=== PATIENT | male | born 1985 | race Caucasian/White ===

== ENCOUNTER 2017-09-17 13:09 | Inpatient (IN) ==
[2017-09-17 13:45] LABS: Basophils # 0.1 K/mcL (0.0-0.2); Basophils % 0.7 %; Eosinophils # 0.1 K/mcL (0.0-0.6); Eosinophils % 1.2 %; Hematocrit 41.5 % (37.5-50.1); Hemoglobin 14.1 g/dL (12.9-16.9); Immature Granulocytes % 0.4 % (0-4); Lymphocytes # 2.6 K/mcL (0.6-4.6); Lymphocytes % 26.3 %; Mean Corpuscular Hemoglobin 31.2 pg (28.0-33.3); Mean Corpuscular Volume 91.8 fL (83.0-100.0); Mean Platelet Volume 10.8 fL (9.4-12.4); Monocytes # 0.7 K/mcL (0.0-1.3); Monocytes % 7.3 %; Neutrophils # 6.4 K/mcL (1.6-8.9); Platelet Count 252 K/mcL (140-400); Red Blood Count 4.52 M/mcL (4.19-5.50); Red Cell Distribution Width 14.4 % (11.5-14.5); Segmented Neutrophils % 64.1 %
[2017-09-17 13:54] LABS: INR 1.3; Prothrombin Time 13.7 Seconds (9.4-12.1)
--- NOTE | 2017-09-17 13:56 | Emergency Department Note ---
Disposition Clinical Impression: Pleural effusion, Non-STEMI (non-ST elevated myocardial infarction) Dyspnea Qualifiers: Dyspnea type: unspecified Qualified Code(s): R06.00 - Dyspnea, unspecified CHF (congestive heart failure) Qualifiers: Heart failure type: unspecified Heart failure chronicity: acute Qualified Code( s): I50.9 - Heart failure, unspecified Pneumonia Qualifiers: Pneumonia type: due to unspecified organism Laterality: bilateral Lung location : lower lobe of lung Qualified Code(s): J18.1 - Lobar pneumonia, unspecified organism Disposition: Admitted As Inpatient Condition: Fair Referrals: NONE,PCP [Primary Care Provider] - Forms: ED Satisfaction Letter Time of Disposition: 14:23 SOB HPI - General Chief Complaint: ED Shortness of Breath/Dyspnea Stated Complaint: "collapsed lung?" Time Seen by Provider: 09/17/17 13:32 Source: patient Limitations: no limitations Nursing Notes Reviewed: Yes Vital Signs Reviewed: Yes - History of Present Illness 32-year-old male who comes in complaining of increasing shortness of breath he had some abdominal distention and he stated. Patient states he has no history of this he states he did have a pneumothorax in the past when he fell. He had a history of heavy drinking in the past. Pt Subjective Complaint: shortness of breath Onset (ago): day(s) (5) Improves with: nothing Worsens with: exertion Associated symptoms: Reports: abdominal pain Treatment prior to arrival: none Cough Description: Involuntary Cough Frequency: Intermittent - Related Data Home Medications Medication Instructions Recorded Confirmed No Known Home Drugs 09/17/17 09/17/17 Allergies Allergy/AdvReac Type Severity Reaction Status Date / Time No Known Allergies Allergy Verified 09/17/17 16:08 All systems ED: reviewed and negative except as stated. Constitutional: Denies: fever, chills, weakness, weight change Eyes: Denies: eye pain, eye discharge, vision change ENT ED: Denies: ear pain, throat pain, dental pain, hearing loss, epistaxis, congestion, dysphagia Cardiovascular: Denies: chest pain, palpitations, dyspnea on exertion, edema, syncope Respiratory: Reports: cough, dyspnea. Denies: wheezes, hemoptysis, stridor Gastrointestinal: Denies: abdominal pain, nausea, vomiting, diarrhea, constipation, hematemesis, melena, hematochezia Genitourinary: Denies: urgency, dysuria, frequency, hematuria Musculoskeletal: Denies: back pain, neck pain, arthralgia, myalgia Integumentary: Denies: rash, abrasion, lesions Neurological: Denies: headache, weakness, numbness, paresthesias, confusion, abnormal gait, vertigo Psychiatric: Denies: anxiety, depression, suicidal thoughts, homicidal thoughts , auditory hallucinations, visual hallucinations Endocrine: Denies: fatigue Hematological/Lymphatic: Denies: easy bleeding, easy bruising Allergic/Immunologic: Denies: facial swelling, urticaria Past Medical History - Past Medical History Medical history: Reports: other Psychiatric history: Reports: no psych history - Social History Smoking Status: Current every day smoker Smokeless Tobacco Status: No Alcohol use: Reports: none Drug use: Reports: marijuana Physical Exam - General Limitations: no limitations General appearance: alert - Head Head exam: atraumatic, normocephalic, normal inspection - Eye Eye exam: Present: normal appearance, PERRL, EOMI - ENT ENT exam: normal exam, normal oropharynx, mucous membranes moist - Neck Neck exam: Present: normal inspection, full ROM, trachea midline - Chest Chest inspection: Present: normal inspection, symmetric chest wall rise - Respiratory Respiratory exam: Present: accessory muscle use, prolonged expiratory phase, other (Rales) - Cardiovascular Cardiovascular exam: Present: regular rate, normal rhythm, normal heart sounds - Abdominal Exam Abdominal exam: Present: tenderness (Epigastrium) - Extremities Exam Extremities exam: Present: normal inspection, full ROM. Absent: tenderness, pedal edema - Expanded Lower Extremity Exam Neurovascular/Tendon exam: Absent: motor deficit, sensory deficit, tendon deficit Gait: observed and normal - Back Exam Back exam: Present: normal inspection, full ROM. Absent: tenderness - Neurological Exam Neurological exam: Present: alert, oriented X3 - Psychiatric Psychiatric exam: Present: normal affect, normal mood - Skin Skin exam: Present: warm, dry, intact, normal color Course - Reevaluation(s) Reevaluation #1: 32-year-old who comes in with exertional dyspnea and cough. He thought he may have another pneumothorax which she has had the past. A chest x-ray shows questionable bilateral pneumonia although when I review the x-ray it looks like he has some failure also. His BNP is elevated at almost 2000. Initial troponin was 0.33, repeat troponin was 0.39. This was discussed with cardiology interventionalists who recommended Lasix and admission and he will see the patient. The EKG was shown to the interventionalists who felt it was left ventricular hypertrophy strain pattern. Time: 15:57 - Consultations Consultation #1: Discussed with , who reviewed the EKG and reviewed the initial troponin 0.33. He requests we repeat his troponin at 1 hour. Time: 14:21 Consultation #2: Discussed with , troponin is 0.39 up from 0.33. Time: 15:20 Consultation #3: Discussed with , recommends Lasix and he will see the patient. Time: 15:56 Additional Consultation(s): Discussed with , admit. Vital Signs Temperature 97.4 F L 09/17/17 13:17 Pulse Rate 108 09/17/17 13:17 Respiratory Rate 24 09/17/17 13:17 Blood Pressure 127/77 09/17/17 13:17 O2 Sat by Pulse Oximetry 97 09/17/17 13:17 Temperature 97.4 F L 09/17/17 13:17 Pulse Rate 127 09/17/17 16:47 Respiratory Rate 18 09/17/17 16:47 Blood Pressure 107/71 09/17/17 16:47 O2 Sat by Pulse Oximetry 98 09/17/17 16:47 Oxygen Delivery Oxygen Delivery Room Air Shortness of Breath/Dyspnea - Lab Data Result diagrams: 09/17/17 13:28 09/17/17 13:28 Lab Results 09/17/17 09/17/17 09/17/17 Range/Units 13:28 13:28 13:28 WBC 10.0 (4.3-11.1) K/mcL RBC 4.52 (4.19-5.50) M/mcL Hgb 14.1 (12.9-16.9) g/dL Hct 41.5 (37.5-50.1) % MCV 91.8 (83.0-100.0) fL MCH 31.2 (28.0-33.3) pg MCHC 34.0 (31.6-35.5) g/dL RDW 14.4 (11.5-14.5) % Plt Count 252 (140-400) K/mcL MPV 10.8 (9.4-12.4) fL Immature Gran % 0.4 (0-4) % Seg Neutrophils % 64.1 % Lymphocytes % 26.3 % Monocytes % 7.3 % Eosinophils % 1.2 % Basophils % 0.7 % Neutrophils # 6.4 (1.6-8.9) K/mcL Lymphocytes # 2.6 (0.6-4.6) K/mcL Monocytes # 0.7 (0.0-1.3) K/mcL Eosinophils # 0.1 (0.0-0.6) K/mcL Basophils # 0.1 (0.0-0.2) K/mcL PT 13.7 H (9.4-12.1) Seconds INR 1.3 APTT 28.2 (26.0-36.0) Seconds Sodium 137 (136-145) mEq/L Potassium 4.2 (3.5-5.1) mEq/L Chloride 107 (98-107) mEq/L Carbon Dioxide 22 L (23-29) mEq/L BUN 23 H (6-20) mg/dL Creatinine 1.28 (0.70-1.30) mg/dL Est GFR ( Amer) > 60 (> 60) Est GFR (Non-Af Amer) > 60 (> 60) BUN/Creatinine Ratio 18 (6-26) Glucose 172 H (70-105) mg/dL Calculated Osmolality 292 (280-300) Lactic Acid (0.5-2.2) mmol/L Calcium 8.8 (8.6-10.3) mg/dL Total Bilirubin 0.7 (0.3-1.0) mg/dL Direct Bilirubin 0.2 (0.0-0.2) mg/dL Indirect Bilirubin 0.5 (0.0-1.2) mg/dL AST 30 (13-39) Units/L ALT 46 (7-52) Units/L Alkaline Phosphatase 38 (34-104) Units/L Troponin I 0.33 H* (< 0.04) ng/mL B-Natriuretic Peptide (Less than 100) pg/mL Serum Total Protein 5.7 L (6.4-8.9) g/dL Albumin 3.5 (3.5-5.7) g/dL Globulin 2.2 L (2.4-3.5) g/dL Albumin/Globulin Ratio 1.6 (1.1-2.2) Amylase 33 (29-103) Units/L Lipase 6 L (11-82) Units/L 09/17/17 09/17/17 09/17/17 Range/Units 13:53 13:53 14:47 WBC (4.3-11.1) K/mcL RBC (4.19-5.50) M/mcL Hgb (12.9-16.9) g/dL Hct (37.5-50.1) % MCV (83.0-100.0) fL MCH (28.0-33.3) pg MCHC (31.6-35.5) g/dL RDW (11.5-14.5) % Plt Count (140-400) K/mcL MPV (9.4-12.4) fL Immature Gran % (0-4) % Seg Neutrophils % % Lymphocytes % % Monocytes % % Eosinophils % % Basophils % % Neutrophils # (1.6-8.9) K/mcL Lymphocytes # (0.6-4.6) K/mcL Monocytes # (0.0-1.3) K/mcL Eosinophils # (0.0-0.6) K/mcL Basophils # (0.0-0.2) K/mcL PT (9.4-12.1) Seconds INR APTT (26.0-36.0) Seconds Sodium (136-145) mEq/L Potassium (3.5-5.1) mEq/L Chloride (98-107) mEq/L Carbon Dioxide (23-29) mEq/L BUN (6-20) mg/dL Creatinine (0.70-1.30) mg/dL Est GFR ( Amer) (> 60) Est GFR (Non-Af Amer) (> 60) BUN/Creatinine Ratio (6-26) Glucose (70-105) mg/dL Calculated Osmolality (280-300) Lactic Acid 2.6 H (0.5-2.2) mmol/L Calcium (8.6-10.3) mg/dL Total Bilirubin (0.3-1.0) mg/dL Direct Bilirubin (0.0-0.2) mg/dL Indirect Bilirubin (0.0-1.2) mg/dL AST (13-39) Units/L ALT (7-52) Units/L Alkaline Phosphatase (34-104) Units/L Troponin I 0.39 H* (< 0.04) ng/mL B-Natriuretic Peptide 1804 H (Less than 100) pg/mL Serum Total Protein (6.4-8.9) g/dL Albumin (3.5-5.7) g/dL Globulin (2.4-3.5) g/dL Albumin/Globulin Ratio (1.1-2.2) Amylase (29-103) Units/L Lipase (11-82) Units/L Critical Care Time Critical Care Time: Yes Total Critical Care Time: 30 Attestation: The high probability of a clinically significant, sudden or life threatening deterioration of the [cardiovascular] system(s) required my full and direct attention, intervention and personal management. The aggregate critical care time was [30] minutes. This time is in addition to time spent performing reported procedures but includes the following: [x] Data Review and interpretation [x] Patient assessment and monitoring of vital signs [x] Documentation [x] Medication orders and management
[2017-09-17 13:57] LABS: Activated Partial Thrombo Time 28.2 Seconds (26.0-36.0)
[2017-09-17 14:16] LABS: Troponin I 0.33 ng/mL (< 0.04)
[2017-09-17 14:19] LABS: Alanine Aminotransferase 46 Units/L (7-52); Albumin 3.5 g/dL (3.5-5.7); Albumin/Globulin Ratio 1.6 (1.1-2.2); Alkaline Phosphatase 38 Units/L (34-104); Amylase 33 Units/L (29-103); Aspartate Amino Transferase 30 Units/L (13-39); BUN/Creatinine Ratio 18 (6-26); Bilirubin,Direct 0.2 mg/dL (0.0-0.2); Bilirubin,Indirect 0.5 mg/dL (0.0-1.2); Bilirubin,Total 0.7 mg/dL (0.3-1.0); Blood Urea Nitrogen 23 mg/dL (6-20); Calcium 8.8 mg/dL (8.6-10.3); Carbon Dioxide 22 mEq/L (23-29); Chloride 107 mEq/L (98-107); Globulin 2.2 g/dL (2.4-3.5); Glucose 172 mg/dL (70-105); Lipase 6 Units/L (11-82); Osmolality,Calculated 292 (280-300); Potassium 4.2 mEq/L (3.5-5.1); Sodium 137 mEq/L (136-145); Total Protein 5.7 g/dL (6.4-8.9); eGFR For African Americans > 60 (> 60); eGFR For Non-African Americans > 60 (> 60)
[2017-09-17] MEDS ORDERED: Azithromycin 500 MG in D5% in Water 250 ML IVPB ONE (14:19)
[2017-09-17] MEDS ORDERED: cefTRIAXone 1,000 MG in Water for inj. (sterile) 20 ML 10 ML IVP ONE (14:19)
[2017-09-17] MEDS ORDERED: Furosemide 40 MG/4 ML VIAL IVP ONE (15:18)
[2017-09-17] MEDS ORDERED: *HR* Heparin 5,000 UNIT/ML VIAL IVP PRN ×2 (16:34)
[2017-09-17] MEDS ORDERED: *HR* Heparin 5,000 UNIT/ML VIAL IVP ONE (16:34)
[2017-09-17] MEDS ORDERED: Heparin 25,000 UNIT/500 ML D5W 25,000 UNIT/500 ML BAG IVC SCH (16:45)
[2017-09-17] MEDS ORDERED: *HR* FentaNYL (PF) 100 MCG/2 ML VIAL IVP ONE (16:48)
[2017-09-17] MEDS ORDERED: Ondansetron 4 MG/2 ML VIAL IVP ONE (16:48)
[2017-09-17] MEDS ORDERED: Naloxone 0.4 MG/ML INJ IVP PRN (18:00)
[2017-09-17] MEDS ORDERED: Ringers Solution, Lactated 1,000 ML IVC SCH (18:00)
--- NOTE | 2017-09-17 18:07 | Internal Med History&Physical ---
Date of Encounter: 09/17/17 Time of Encounter: 18:05 Internal Medicine - H&P: HPI Chief complaint: Left-sided chest pain History of present illness: Mr. Byrd is a 32 year old male who presents with left-sided chest pain found to have a significant troponemia-NSTEMI and clinical bilateral pneumonia He presents with 4-5 days history of left-sided chest pain, described as sharp, pleuritic, worse with movement. Associated with sweaty sensation and chills. Symptoms was significantly worse today with no improvement over the last few days leading to hospital admission. Of note he denies knowingly consuming any illicit drugs except for smoking marijuana. He had a republican last weekend and is unsure whether he was exposed to other drugs unintentionally. He is unsure whether his joints were laced with other drugs. He consumes alcohol at a frequency of twice a month and is not a daily drinker per his admission. He reports a history of traumatic pneumothorax from a fall many years ago. EKG personally reviewed with rate 120, LVH, T-wave inversion in anterior leads, isolated V3 ST elevation FINDINGS: Bilateral lower lobe airspace disease and bilateral pleural effusions are evident. Mild cardiomegaly. No pulmonary vascular congestion. XR/XR chest 1V portable IMPRESSION: Possible bilateral lower lobe pneumonia with parapneumonic bilateral pleural effusions Past Med Surg Social Fam HX - Past Medical History Medical history: other Additional medical history: allergies. collapsed lung Psychiatric history: no psych history - Past Surgical History Additional surgical history: collapsed lung/chest tube - Social History Smoking Status: Current every day smoker Smokeless Tobacco Status: No Alcohol use: none Drug use: marijuana Internal Medicine - H&P: Meds No Known Home Drugs 09/17/17 [History] 3 Allergy/AdvReac Type Severity Reaction Status Date / Time No Known Allergies Allergy Verified 09/17/17 16:08 All Systems PM: A 10-system review of systems was performed and is negative for pertinent findings except as documented above in the HPI. Review of systems: ROS 14 point review of systems reviewed as best as possible given presentation. Pertinent positive or negative as per HPI or otherwise reviewed as negative - Constitutional Vitals: Temp Pulse Resp BP Pulse Ox 97.4 F L 127 18 107/71 98 09/17/17 13:17 09/17/17 16:47 09/17/17 16:47 09/17/17 16:47 09/17/17 16:47 Exam: General - AAO x 3 Psych - Appropriate affect/speech. No agitation Eyes - CEE. Eye lids intact. No scleral icterus Neuro - No gross peripheral or central neuro deficits on inspection Heart - Sinus. RRR. S1 and S2 present. No added HS/murmurs appreciated. No elevated JVD appreciated. Lung - Adequate air entry b/l, bibasal crackles, no wheeze GI - Soft, non-tender. No hepatosplenomegaly/ascites. BS+ - No CVA/suprapubic tenderness or palpable bladder distension Skin - Intact. No rash/petechiae/ecchymosis. Warm extremities Internal Med - H&P Results - Labs CBC & Chem 7: 09/17/17 13:28 09/17/17 13:28 Labs: Short CBC 09/17/17 Range/Units 13:28 WBC 10.0 (4.3-11.1) K/mcL Hgb 14.1 (12.9-16.9) g/dL Hct 41.5 (37.5-50.1) % Plt Count 252 (140-400) K/mcL Neutrophils # 6.4 (1.6-8.9) K/mcL BMP 09/17/17 13:28 Sodium 137 Potassium 4.2 Chloride 107 Carbon Dioxide 22 L BUN 23 H Creatinine 1.28 Glucose 172 H Calcium 8.8 Cardiac Enzymes 09/17/17 09/17/17 Range/Units 13:28 14:47 Troponin I 0.33 H* 0.39 H* (< 0.04) ng/mL Liver Function 09/17/17 Range/Units 13:28 Total Bilirubin 0.7 (0.3-1.0) mg/dL Direct Bilirubin 0.2 (0.0-0.2) mg/dL AST 30 (13-39) Units/L ALT 46 (7-52) Units/L Alkaline Phosphatase 38 (34-104) Units/L Albumin 3.5 (3.5-5.7) g/dL - Impressions ITS Impressions Chest X-Ray 09/17/17 13:20 IMPRESSION: Possible bilateral lower lobe pneumonia with parapneumonic bilateral pleural effusions D/ / Buzz Licona MD / Buzz Licona MD Interpreting Provider: Buzz Licona MD - Assessment and plan (1) Non-STEMI (non-ST elevated myocardial infarction) Current Visit: Yes Status: Acute Assessment and plan: ED - Dr Jones d/w Dr Silva - rec heparin gtt - will continue overnight pending testing below EKG with LV strain read by Dr Silva. Recheck EKG in a.m Trend trop check urine tox for drugs check CTPE (2) Pneumonia Current Visit: Yes Status: Acute Assessment and plan: IV rocephin, azithro serologies pend blood cx pend Qualifiers: Pneumonia type: due to unspecified organism Laterality: bilateral Lung location: lower lobe of lung Qualified Code(s): J18.1 - Lobar pneumonia, unspecified organism (3) Pleural effusion Current Visit: Yes Status: Acute Assessment and plan: likely parapneumonic - Time Spent With Patient Total time spent is greater than 50% in coordination of care (as documented) at patient's floor/unit and/or counseling patient:
[2017-09-17] MEDS ORDERED: Isovue-370 500 ML INFUS..BTL IV ONE (18:08)
[2017-09-17] MEDS ORDERED: Aspirin 81 MG TAB.CHEW PO STA (18:14)
[2017-09-17 18:55] LABS: Amphetamine Screen,Urine Negative ng/mL (Cutoff=1000); Barbiturate Screen,Urine Negative ng/mL (Cutoff=200); Benzodiazepines Screen,Urine Negative ng/mL (Cutoff=200); Cannabinoid Screen,Urine Negative ng/mL (Cutoff = 50); Cocaine Screen,Urine Negative ng/mL (Cutoff= 300); Opiate Screen,Urine Negative ng/mL (Cutoff=300); Phencyclidine Screen,Urine Negative ng/mL (Cutoff=25)
[2017-09-18 02:58] LABS: Basophils # 0.1 K/mcL (0.0-0.2); Basophils % 0.8 %; Eosinophils # 0.1 K/mcL (0.0-0.6); Eosinophils % 1.4 %; Hematocrit 40.7 % (37.5-50.1); Hemoglobin 14.1 g/dL (12.9-16.9); Immature Granulocytes % 0.3 % (0-4); Lymphocytes # 3.9 K/mcL (0.6-4.6); Lymphocytes % 40.1 %; Mean Corpuscular HGB Conc 34.6 g/dL (31.6-35.5); Mean Corpuscular Hemoglobin 31.2 pg (28.0-33.3); Mean Platelet Volume 10.6 fL (9.4-12.4); Monocytes # 0.9 K/mcL (0.0-1.3); Monocytes % 8.8 %; Neutrophils # 4.7 K/mcL (1.6-8.9); Platelet Count 219 K/mcL (140-400); Red Blood Count 4.52 M/mcL (4.19-5.50); Red Cell Distribution Width 14.4 % (11.5-14.5); Segmented Neutrophils % 48.6 %
[2017-09-18 03:17] LABS: BUN/Creatinine Ratio 23 (6-26); Blood Urea Nitrogen 25 mg/dL (6-20); Calcium 8.3 mg/dL (8.6-10.3); Carbon Dioxide 21 mEq/L (23-29); Chloride 108 mEq/L (98-107); Glucose 114 mg/dL (70-105); Osmolality,Calculated 293 (280-300); Potassium 3.6 mEq/L (3.5-5.1); Sodium 139 mEq/L (136-145); eGFR For African Americans > 60 (> 60); eGFR For Non-African Americans > 60 (> 60)
[2017-09-18] MEDS ORDERED: Azithromycin 500 MG in D5% in Water 250 ML IVPB SCH (09:00)
[2017-09-18] MEDS ORDERED: cefTRIAXone 2,000 MG in Water for inj. (sterile) 20 ML 20 ML IVP SCH (09:00)
[2017-09-18] MEDS ORDERED: Furosemide 40 MG/4 ML VIAL IVP ONE (10:52)
[2017-09-18] MEDS ORDERED: *HR* Heparin 5,000 UNIT/ML VIAL IVP PRN (10:54)
[2017-09-18] MEDS ORDERED: *HR* Heparin 5,000 UNIT/ML VIAL IVP ONE (10:54)
--- NOTE | 2017-09-18 10:57 | Cardiology Consult Note ---
<VinLeonard - Last Filed: 09/18/17 10:58> Date of Encounter: 09/18/17 Time of Encounter: 10:55 Assessment and Plan Discussion w patient/family: The assessment and plan as outlined above was discussed with the patient and/or family members who expressed understanding and agreement. All questions were answered. Thank you for involving us in the care of your patient. Please call with any questions. History of Present Illness Consult date: 09/18/17 Requesting physician: Raymon Jones Consult reason: elevated troponin Chief complaint: dyspnea History of present illness: Mr. Byrd is a 32 year old male Past Med Surg Social Fam HX - Past Medical History Medical history: other Additional medical history: allergies. collapsed lung Psychiatric history: no psych history - Past Surgical History Additional surgical history: collapsed lung/chest tube - Social History Smoking Status: Current every day smoker Smokeless Tobacco Status: No Alcohol use: none Drug use: none, marijuana Medications and Allergies No Known Home Drugs 09/17/17 [History] 3 Allergy/AdvReac Type Severity Reaction Status Date / Time No Known Allergies Allergy Verified 09/17/17 16:08 All Systems Review: The remainder of the systems were reviewed and are negative Physical Examination Vital Signs, Last 4 Hours Temp Pulse Resp BP Pulse Ox 09/18/17 07:00 97.7 F 120 19 134/105 96 Results 09/18/17 02:46 09/18/17 02:46 Lab Results 09/17/17 09/17/17 09/18/17 20:36 22:50 02:46 WBC 9.7 Hgb 14.1 Hct 40.7 Plt Count 219 APTT 38.3 H Sodium Potassium Chloride Carbon Dioxide BUN Creatinine Glucose Calcium Troponin I 0.31 H* 09/18/17 09/18/17 09/18/17 02:46 02:46 06:06 WBC Hgb Hct Plt Count APTT 58.1 H D Sodium 139 Potassium 3.6 Chloride 108 H Carbon Dioxide 21 L BUN 25 H Creatinine 1.11 Glucose 114 H Calcium 8.3 L Troponin I 0.33 H* Consult Discharge Plan - Plan Referrals: NONE,PCP [Primary Care Provider] - <Avis Monteiro - Last Filed: 09/18/17 11:25> Date of Encounter: 09/18/17 - Attending Attestation I examined this patient and my medical decision-making was reviewed with the Resident Physician. I agree with the documented findings, disposition and treatment plan as described except to the extent set forth below. 32 YOM with no significant cardiac hx presents with GARCIA, orthopnea and chest pain 5 days ago. EKG with significant ST changes suggestive of ischemia in multiple territories. ECHO with severe LV dysfunction and clot. Heparin IV Diuresis/sharma/strict I/O's LHC when able to lay flat CMRI if non ischemic (possible burnt out non compaction) Assessment and Plan Discussion w patient/family: The assessment and plan as outlined above was discussed with the patient and/or family members who expressed understanding and agreement. All questions were answered. Thank you for involving us in the care of your patient. Please call with any questions. History of Present Illness History of present illness: Mr. Byrd is a 32 year old male All Systems Review: The remainder of the systems were reviewed and are negative Results 09/18/17 02:46 09/18/17 02:46 Lab Results 09/17/17 09/17/17 09/18/17 20:36 22:50 02:46 WBC 9.7 Hgb 14.1 Hct 40.7 Plt Count 219 APTT 38.3 H Sodium Potassium Chloride Carbon Dioxide BUN Creatinine Glucose Calcium Troponin I 0.31 H* 09/18/17 09/18/17 09/18/17 02:46 02:46 06:06 WBC Hgb Hct Plt Count APTT 58.1 H D Sodium 139 Potassium 3.6 Chloride 108 H Carbon Dioxide 21 L BUN 25 H Creatinine 1.11 Glucose 114 H Calcium 8.3 L Troponin I 0.33 H*
--- NOTE | 2017-09-18 13:00 | Internal Med Progress Note ---
Date of Encounter: 09/18/17 Time of Encounter: 12:58 - Assessment and plan (1) LV (left ventricular) mural thrombus Current Visit: Yes Status: Acute Assessment and plan: continue heparin will bridge with warfarin after C (2) CHF (congestive heart failure) Current Visit: Yes Status: Acute Assessment and plan: patient with acute systolic CHF, with bilateral large pleural effusions, pulm edema on CT scan Received IVF on admission, discontinued ECHO also shows LV thrombus Suspect ISchemic CMP BNP 1840 Cardiology following Continue heparin drip, received lasix IV (60mg )in ER, continue IV 20mg daily (will increase lasix daily as tolerated by kidney function) Add low dose ACEi 2.5mg daily Consider thoracentensis after C Strict Intake and outputs Daily weights Fluid restriction diet Qualifiers: Heart failure type: systolic Heart failure chronicity: acute Qualified Code(s): I50.21 - Acute systolic (congestive) heart failure (3) Non-STEMI (non-ST elevated myocardial infarction) Current Visit: Yes Status: Suspected Assessment and plan: suspected No chest pain EKG with ST segment changes troponin of 0.33/0.39/0.33 Continue heparin add low dose ACEI Check lipid panel a.m Add lipitor Cardiology following (4) Pleural effusion Current Visit: Yes Status: Acute Assessment and plan: likely from CHF For thoracentensis (5) Pneumonia Current Visit: Yes Status: Suspected Assessment and plan: suspected CT does not show infiltrates Hold antibiotics for now Urine legionella Ag and strep Ag negative Follow blood cultures Patient is not septic Qualifiers: Pneumonia type: due to unspecified organism Laterality: bilateral Lung location: lower lobe of lung Qualified Code(s): J18.1 - Lobar pneumonia, unspecified organism (6) Tachycardia Current Visit: Yes Status: Acute Assessment and plan: likely chronic EKG with ischemic changes Continue to monitor - Time Spent With Patient Total time spent is greater than 50% in coordination of care (as documented) at patient's floor/unit and/or counseling patient: - Subjective Interval history: 32 M with acute systolic CHF, Elevated troponin, Hx of polysubstance abuse, ECHO showed LV thrombus, cardiology is following Suspected NSTEMI, on heparin already Denies new complains Endorsed use of illicit drugs (unsure which as it was at a prty), also endorsed drinking 8-9 energy drinks daily Tachycardia is persistent, in sinus he is not in resp distress and not hypoxic - Constitutional Vitals: Temp Pulse Resp BP Pulse Ox 97.7 F 109 19 128/94 96 09/18/17 07:00 09/18/17 11:00 09/18/17 11:00 09/18/17 11:00 09/18/17 11:00 General appearance: Present: A&O X 3, pleasant, no acute distress - Head Head exam: Present: atraumatic, normocephalic - Eye Eye exam: Present: PERRL, conjuntiva pink, sclera anicteric Pupils: Present: PERRL - Neck Neck exam general surgery: Present: supple, trachea midline. Absent: lymphadenopathy - Respiratory Respiratory exam: Absent: accessory muscle use, rales, rhonchi, wheezes Additional comments: diminished air entry bilaterally, L>R - Cardiovascular Cardiovascular exam: Present: RRR, +S1, +S2, tachycardia. Absent: diastolic murmur, gallop, rubs, systolic murmur - GI/Abdominal GI/Abdominal exam: Present: normal bowel sounds, soft, no peritoneal signs. Absent: distended, tenderness - Extremities Exam Extremities exam: Present: warm, radial pulses palpable and symmetrical. Absent : calf tenderness, cyanotic, pedal edema - Neurological Exam Neurological exam: Present: alert, CN II-XII intact, oriented X3, no focal deficits. Absent: pronater drift, facial droop, speech deficit - Skin Skin exam: Present: dry, intact Internal Medicine: Result - Labs CBC & Chem 7: 09/18/17 02:46 09/18/17 02:46 Labs: Short CBC 09/18/17 Range/Units 02:46 WBC 9.7 (4.3-11.1) K/mcL Hgb 14.1 (12.9-16.9) g/dL Hct 40.7 (37.5-50.1) % Plt Count 219 (140-400) K/mcL Neutrophils # 4.7 (1.6-8.9) K/mcL BMP 09/18/17 02:46 Sodium 139 Potassium 3.6 Chloride 108 H Carbon Dioxide 21 L BUN 25 H Creatinine 1.11 Glucose 114 H Calcium 8.3 L Cardiac Enzymes 09/17/17 09/18/17 09/18/17 Range/Units 20:36 02:46 10:50 Troponin I 0.31 H* 0.33 H* 0.30 H* (< 0.04) ng/mL - ABG Interpretation ABG results: PT/INR, D-dimer PT 13.7 Seconds (9.4-12.1) H 09/17/17 13:28 - Impressions Impressions Echocardiogram 09/18/17 18:02 Impressions: Sinus tachycardia. LVEF 15-20%. Severe global reduction in LV systolic dysfunction with mild regional variation in the basal lateral wall. There is mild increase in LV apical trabeculation. There are multiple echodensities in the LV apex possibly consistent with ventricular thrombus. One is located in the LV apex and is non-mobile measuring 1.5x1.1cm, another is located along the anterolateral wall and is partially mobile measuring 0.8x0.9cm, another is mobile and located along the distal inferoseptum measuring 0.4x0.5cm. Moderately dilated left ventricle. Indeterminate diastolic function. RV is normal in size with moderate reduction in function. Mild-moderate mitral regurgitation. Mild tricuspid regurgitation. Mild pulmonary hypertension. Mild pulmonic regurgitation. A pleural effusion is present. The IVC is dilated. Abnormal findings communicated to ordering provider. Cardiology service made aware. Left Ventricular Wall Motion: Rest Echo Findings The apex, apical inferior, mid inferior, basal inferior, apical anterior, mid anterior, basal anterior, apical septal, mid inferior septal, basal inferior septal, apical lateral, mid anterior lateral, basal anterior lateral, mid anterior septal, mid inferior lateral, basal anterior septal and basal inferior lateral alvarez were hypokinetic. Findings: Study Quality * Technically adequate exam. ECG Findings * Sinus tachycardia. Left Ventricle * LVEF 15-20%. * Moderately dilated left ventricle. * Definity echo contrast was not used. * There is a left ventricular thrombus. * Indeterminate diastolic function. Right Ventricle * RV is normal in size with moderate reduction in function. Left Atrium * Moderately dilated left atrium. Right Atrium * Mildly dilated right atrium. Aortic Valve * No aortic regurgitation. * Trileaflet aortic valve. * No aortic stenosis. Mitral Valve * Normal mitral valve structure. * No mitral stenosis. * Mild-moderate mitral regurgitation. Tricuspid Valve * Normal tricuspid valve structure. * Mild tricuspid regurgitation. * Estimated RA pressure is 20 mmHg. * Estimated RVSP is 44 mmHg. * Mild pulmonary hypertension. Pulmonic Valve * Normal pulmonic valve structure. * No pulmonic stenosis. * Mild pulmonic regurgitation. Pulmonary Artery * Normal visualized portions of the main pulmonary artery. Aorta * Normally sized aortic root. Pericardium * There is no pericardial effusion present. Pleural Effusion * A pleural effusion is present. Interatrial Septum * No evidence of PFO by color Doppler. IVC * The IVC is dilated. * < 50% respiratory change. Consult Discharge Plan - Plan Referrals: NONE,PCP [Primary Care Provider] -
[2017-09-18] MEDS: *HR* Heparin 5,000 UNIT/ML VIAL IVP PRN (15:07)
[2017-09-18] MEDS: Heparin 25,000 UNIT/500 ML D5W 25,000 UNIT/500 ML BAG IVC SCH (15:09)
--- NOTE | 2017-09-18 19:22 | Electrocardiograph Report ---
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
[2017-09-19 04:22] LABS: Basophils # 0.1 K/mcL (0.0-0.2); Eosinophils # 0.2 K/mcL (0.0-0.6); Eosinophils % 2.2 %; Hemoglobin 14.9 g/dL (12.9-16.9); Immature Granulocytes % 0.2 % (0-4); Lymphocytes # 3.6 K/mcL (0.6-4.6); Lymphocytes % 39.1 %; Mean Corpuscular HGB Conc 34.7 g/dL (31.6-35.5); Mean Corpuscular Hemoglobin 31.6 pg (28.0-33.3); Mean Corpuscular Volume 91.3 fL (83.0-100.0); Mean Platelet Volume 11.3 fL (9.4-12.4); Monocytes # 0.8 K/mcL (0.0-1.3); Monocytes % 9.2 %; Neutrophils # 4.4 K/mcL (1.6-8.9); Platelet Count 213 K/mcL (140-400); Red Blood Count 4.71 M/mcL (4.19-5.50); Red Cell Distribution Width 14.4 % (11.5-14.5); Segmented Neutrophils % 48.3 %
[2017-09-19 04:40] LABS: BUN/Creatinine Ratio 19 (6-26); Blood Urea Nitrogen 21 mg/dL (6-20); Calcium 8.7 mg/dL (8.6-10.3); Carbon Dioxide 26 mEq/L (23-29); Chloride 104 mEq/L (98-107); Glucose 104 mg/dL (70-105); Osmolality,Calculated 289 (280-300); Potassium 3.5 mEq/L (3.5-5.1); Sodium 138 mEq/L (136-145); eGFR For African Americans > 60 (> 60); eGFR For Non-African Americans > 60 (> 60)
[2017-09-19 04:41] LABS: Chol/HDL Ratio 2.8 (0-4.9)
[2017-09-19] MEDS: *HR* Heparin 5,000 UNIT/ML VIAL IVP PRN (05:09)
[2017-09-19] MEDS ORDERED: Aspirin Enteric Coated 81 MG Tablet PO SCH (09:00)
[2017-09-19] MEDS: Furosemide 20 MG/2 ML VIAL IVP SCH (09:20)
[2017-09-19] MEDS: Heparin 25,000 UNIT/500 ML D5W 25,000 UNIT/500 ML BAG IVC SCH (09:23)
--- NOTE | 2017-09-19 09:32 | Cardiology Progress Note ---
Date of Encounter: 09/19/17 Time of Encounter: 09:30 Assessment and Plan Discussion w patient/family: The assessment and plan as outlined above was discussed with the patient and/or family members who expressed understanding and agreement. All questions were answered. Thank you for involving us in the care of your patient. Please call with any questions. Subjective Principal diagnosis: HFrEF, LV thrombus Interval history: Patient seen and examined at bedside this morning. He states that overall feels about the same. Is able to lay flat more and slept on his back last night without issues. No chest pain, palpitations, LE swelling. Breathing about the same. No overnight events. Objective Vital Signs, Last 4 Hours Temp Pulse Resp BP Pulse Ox 09/19/17 06:42 97.8 F 122 17 129/96 94 General: Conversant, No Apparent Distress HEENT: Atraumatic, Normocephaly, Mucus Membranes Moist Neck: No JVD, Normal carotid pulses Cardiac: Reg Rate and Rhythm, Normal S1 and S2, No Murmur Lungs: Normal Breath Sounds, Other (mild rales on left base) Neuro: Alert and responsive, No focal deficits noted Abdomen: Soft, Non-Tender Skin: No rashes noted on visualized skin Musculoskeletal: No Chest Wall Tenderness Extremities: No Clubbing, No Cyanosis, No Edema, Normal Pulses Results 09/19/17 04:08 09/19/17 04:08 Lab Results 09/18/17 09/18/17 09/18/17 10:50 13:59 20:51 WBC Hgb Hct Plt Count APTT 53.2 H 76.1 H Sodium Potassium Chloride Carbon Dioxide BUN Creatinine Glucose Calcium Troponin I 0.30 H* 09/19/17 09/19/17 09/19/17 04:08 04:08 04:08 WBC 9.1 Hgb 14.9 Hct 43.0 Plt Count 213 APTT 57.9 H Sodium 138 Potassium 3.5 Chloride 104 Carbon Dioxide 26 BUN 21 H Creatinine 1.11 Glucose 104 Calcium 8.7 Troponin I Consult Discharge Plan - Plan Referrals: NONE,PCP [Primary Care Provider] -
--- NOTE | 2017-09-19 11:02 | Internal Med Progress Note ---
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 BNP 1840 Cardiology following Continue heparin drip, received lasix IV (60mg )in ER continue IV 20mg daily (will increase lasix daily as tolerated by kidney function) continue low dose ACEi 2.5mg daily Consider thoracentensis after [facility] Strict Intake and outputs i/o -4.8L Daily weights Fluid restriction diet Qualifiers: Heart failure type: systolic Heart failure chronicity: acute Qualified Code(s): I50.21 - Acute systolic (congestive) heart failure (3) Non-STEMI (non-ST elevated myocardial infarction) Current Visit: Yes Status: Suspected Assessment and plan: suspected No chest pain EKG with ST segment changes troponin of 0.33/0.39/0.33 Continue heparin continue ACEI and Lipitor, lipid panel unremarakble, will d/c lipitor if no CAD on [facility] Cardiology following (4) Pleural effusion Current Visit: Yes Status: Acute Assessment and plan: likely from CHF For thoracentensis when stable , currently not hypoxic or symptomatic at rest (5) Pneumonia Current Visit: Yes Status: Suspected Assessment and plan: suspected CT does not show infiltrates Hold antibiotics for now Urine legionella Ag and strep Ag negative Follow blood cultures Patient is not septic Qualifiers: Pneumonia type: due to unspecified organism Laterality: bilateral Lung location: lower lobe of lung Qualified Code(s): J18.1 - Lobar pneumonia, unspecified organism (6) Tachycardia Current Visit: Yes Status: Acute Assessment and plan: likely chronic EKG with ischemic changes Continue to monitor (7) Tobacco abuse Current Visit: Yes Status: Acute Assessment and plan: smokes 3 PPD NRT provided - Time Spent With Patient Total time spent is greater than 50% in coordination of care (as documented) at patient's floor/unit and/or counseling patient: - Subjective Interval history: 32 M with acute systolic CHF, Elevated troponin, Hx of polysubstance abuse, ECHO showed LV thrombus, cardiology is following Suspected NSTEMI, on heparin already Endorsed use of illicit drugs (unsure which as it was at a prty), also endorsed drinking 8-9 energy drinks daily Tachycardia is persistent, in sinus he is not in resp distress and not hypoxic he also smoked 3 packs daily, requesting Nictoine pacth Awaiting [facility] today No new complains, SOB on exertion, but not hypoxic or tachypneic - Constitutional Vitals: Temp Pulse Resp BP Pulse Ox 97.8 F 122 17 129/96 94 09/19/17 06:42 09/19/17 06:42 09/19/17 06:42 09/19/17 06:42 09/19/17 06:42 General appearance: Present: A&O X 3, pleasant, no acute distress - Head Head exam: Present: atraumatic, normocephalic - Eye Eye exam: Present: PERRL, conjuntiva pink, sclera anicteric Pupils: Present: PERRL - Neck Neck exam general surgery: Present: supple, trachea midline. Absent: lymphadenopathy - Respiratory Respiratory exam: Present: decreased breath sounds (in both lung bases). Absent : rales, rhonchi, stridor, wheezes, tachypnea - Cardiovascular Cardiovascular exam: Present: +S1, +S2, tachycardia. Absent: diastolic murmur, gallop, rubs, systolic murmur - GI/Abdominal GI/Abdominal exam: Present: normal bowel sounds, soft, no peritoneal signs. Absent: distended, tenderness - Extremities Exam Extremities exam: Present: warm, radial pulses palpable and symmetrical. Absent : calf tenderness, cyanotic, pedal edema - Neurological Exam Neurological exam: Present: alert, CN II-XII intact, oriented X3, no focal deficits. Absent: pronater drift, facial droop, speech deficit - Skin Skin exam: Present: dry, intact Internal Medicine: Result - Labs CBC & Chem 7: 09/19/17 04:08 09/19/17 04:08 Labs: Short CBC 09/19/17 Range/Units 04:08 WBC 9.1 (4.3-11.1) K/mcL Hgb 14.9 (12.9-16.9) g/dL Hct 43.0 (37.5-50.1) % Plt Count 213 (140-400) K/mcL Neutrophils # 4.4 (1.6-8.9) K/mcL BMP 09/19/17 04:08 Sodium 138 Potassium 3.5 Chloride 104 Carbon Dioxide 26 BUN 21 H Creatinine 1.11 Glucose 104 Calcium 8.7 Cardiac Enzymes 09/18/17 Range/Units 10:50 Troponin I 0.30 H* (< 0.04) ng/mL - ABG Interpretation ABG results: PT/INR, D-dimer PT 13.7 Seconds (9.4-12.1) H 09/17/17 13:28 Consult Discharge Plan - Plan Referrals: NONE,PCP [Primary Care Provider] -
[2017-09-19] MEDS: Nicotine 21 MG PATCH.TD24 TD SCH (12:22)
[2017-09-19] MEDS ORDERED: Nitroglycerin 1,000 MCG/10 ML VIAL IV ONE (14:03)
[2017-09-19] MEDS ORDERED: ISOVUE-370 200 ML INFUS..BTL IV ONE (14:03)
[2017-09-19] MEDS ORDERED: *HR* Heparin 10,000 UNIT/10 ML VIAL ONE (14:03)
[2017-09-19] MEDS ORDERED: Heparin 1,000 UNITS/500 mL 500 ML ONE (14:03)
[2017-09-19] MEDS ORDERED: 0.9 % Sodium Chloride 1,000 ML ONE ×2 (14:03→14:44)
[2017-09-19] MEDS ORDERED: *HR* Midazolam HCl 2 MG/2 ML VIAL ONE (14:54)
--- NOTE | 2017-09-19 14:54 | Pre-Sedation Evaluation ---
Pre-sedation evaluation - Pre-sedation checklist Date of procedure: 09/19/17 Procedure: heart cath Recent Vitals: Last Vital Signs Temp 97.8 F 09/19/17 06:42 Pulse 122 09/19/17 06:42 Resp 17 09/19/17 06:42 BP 129/96 09/19/17 06:42 Pulse Ox 94 09/19/17 06:42 H&P (including ROS) documented in medical record: Yes Previous reaction to sedatives/anesthetics: No Dietary Status: NPO after Midnight Airway Assessment: Patient can open mouth completely, TMJ function normal Dentition: No loose teeth or bridges Possible difficult airway: No ASA Classification *see protocol: CLASS IV-Severe systemic disease/constant threat to pt's life Plan of Care: Pt appropriate candidate for procedure/moderate/conscious sedation , Risks/benefits of procedure/sedation discussed w/ patient/family, If not NPO; Risk of intake outweiged by necessity to perform procedure
--- NOTE | 2017-09-19 15:46 | Invasive Diagnostic Lab Proc ---
Name: Steven Byrd Date of Study: 09/19/2017 Date: 1985 Ht: 68.9in Medical Record#: [id number] Age: 32 Wt: 144.18lb Gender: Male BSA: 1.8 Order #: [id number] BMI: 21.36 Physicians Procedure Physician: Olaf Pierre DO Referring MD: Referring MD: Staff Name Position Time In LatanyaisamarJaleesa hdz RN Monitor 02:50 PM Herve Mcclain RN Automatic Dry Starch Operator 02:50 PM Dawn Darden RN Automatic Dry Starch Operator 02:50 PM Francesca Lucas RT Scrub 02:51 PM Herve Mcclain RN Nurse 02:51 PM Indications Indication Non-Stemi Cardiomyopathy Procedures Performed Procedure CORONARY ARTERY ANGIO S&I Pre-Procedure Checklist Informed consent is complete signed and on chart. H&P is on chart. ID band is on and ID verified with patient. Patient NPO for procedure The procedure was described for the patient and questions were answered. ECG is on chart. Plan of Care Patient will tolerate the procedure without complications. Adequate level of comfort will be maintained. Hemodynamics will remain stable Patient will recover from procedure without complications. Respiratory function will be maintained. Cardiac rhythm will remain stable. Patient temperature will be maintained. Patient and/or family have verbalized understanding of the procedure. Patient Education Chief Complaint/Reason for Test: Cardiac Cath Developmental Category: Adult (18-64 years) Developmentally Appropriate for Age: Yes Learning Barriers: None Education Needs: Plan of Care Education Method: Verbal Information Taught: Cardiac Cath Educational Evaluation: Able to repeat information Intravenous Access Time IV Size Location DC'd Fluid/Drip Rate Units RN 20g 1 04/11" Patent On Arrival Lt Antecubital Allergies NONE No Known Allergies Vital Signs Time BP (mmHg) HR (bpm) O2 Sat. RR (bpm) LOC 02:09 PM 129 / 96 122 94 % 16 5 = Fully awake and oriented or at pre-proc level 02:51 PM / % 5 = Fully awake and oriented or at pre-proc level 02:51 PM / % 4 = Oriented but drowsy 02:53 PM 121 / 91 114 96 % 02:58 PM 121 / 89 120 94 % 03:03 PM 128 / 95 114 82 % 03:08 PM 116 / 83 118 97 % 03:13 PM 111 / 79 121 94 % 03:06 PM / % 4 = Oriented but drowsy Procedural Medications Time Medication Dose Units Method Given By 02:54 PM Oxygen 2 L/min nasal cannula Dawn Darden RN 02:55 PM Versed 2 mg Intravenous Dawn Darden RN 03:05 PM Oxygen 5 L/min Oxy Mask Dawn Darden RN 03:07 PM Lidocaine 2% 10 ml Subcutaneous Olaf Pierre DO ASA Classification: CLASS IV- Severe systemic that is constant threat to patient's life Tri Score Preprocedure Postprocedure Activity 2- Moves 4 extremities sustained head lift Activity 2- Moves 4 extremities sustained head lift Circulation 2- SBP +/= 20 points of pre-anesthetic level Circulation 2- SBP +/= 20 points of pre-anesthetic level Consciousness 2- Awake and alert oriented x 3 Consciousness 2- Awake and alert oriented x 3 O2 Saturation 2- Able to maintain O2 satruation of 92% on room air O2 Saturation 2- Able to maintain O2 satruation of 92% on room air Respiratory 2- Able to deep breathe and cough well Respiratory 2- Able to deep breathe and cough well Total Score 10 Total Score 10 Contrast Agent: Isovue Diagnostic Contrast: 35 ml Total Contrast: 35 ml Fluoro Dose: 185 mGy Procedure Log Time Note Enter By 02:44 PM 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 Ronny and xenia [facility] 02:45 PM Sign in performed according to hospital policy. jcallihan 02:45 PM Procedure start 14:45 jcallihan 02:45 PM CathStat 02:49 PM Recorded ECG: RO=180 Condition=Condition 1 02:50 PM Hair removed from procedure site in procedure lab using clippers. Bilateral groin prepped with Chloraprep by Francesca Lucas, then patient was draped. Skin intact. [email or web address] 02:50 PM Jaleesa Singer RN Position: Monitor Time in: 14:50 tsoummers 02:51 PM Dawn Darden RN Position: Automatic Dry Starch Operator Time in: 14:50 tsoummers 02:51 PM Francesca Lucas Position: Scrub Time in: 14:51 tsoummers 02:51 PM Herve Mcclain RN Position: Nurse Time in: 14:51 oummers 02:51 PM Time: 14:51 Patient comfortable and pain free: Yes [facility] 02:51 PM Time: 14:51LOC: 5 = Fully awake and oriented or at pre-proc [facility]52 PM Clinical Presentation: Non-STEMI [facility] 02:52 PM Vitals capture started with the following parameters, Patient=Adult, Interval=5 min, Initial Pajfozpo=770 mmHg, Deflation Rate=5 mmHg, Cuff placed on Right Arm 02:53 PM CP=610 bpm, ZFSS=829/91 mmhg, SpO2=96.0 % 02:54 PM Time: 14:54 Oxygen on at 2 L/min per nasal cannula by Dawn Darden RN 02:55 PM Time: 14:55 Versed 2 mg Intravenous Given by Dawn Darden RN leighann 02:58 PM EU=401 bpm, CENH=307/89 mmhg, SpO2=94.0 %, Comment=ST 02:59 PM ASA Class CLASS IV- Severe systemic that is constant threat to patient's life [email or web address] 03:03 PM XB=337 bpm, HXFQ=780/95 mmhg, SpO2=82.0 %, Comment=ST 03:03 PM Pressure channel 2 zeroed. 03:05 PM Time out performed according to hospital policy [email or web address] 03:06 PM Time: 15:05 Oxygen on at 5 L/min per Oxy Mask by Dawn Darden RN leighann 03:06 PM Time: 14:51LOC: 4 = Oriented but drowsy [email or web address] 03:06 PM Time: 14:51 Patient comfortable and pain free: Yes [email or web address] 03:07 PM Time: 15:07 10 ml Lidocaine 2% to right groin Subcutaneous Given by Olaf Pierre, DO tsoummers 03:07 PM What is the NYHA Class? Class 2 [email or web address] 03:08 PM IS=401 bpm, UMHP=573/83 mmhg, SpO2=97.0 %, Comment=ST 03:09 PM Micro-Introducer Kit utilized for sheath placement [facility] 03:10 PM Access obtained by percutaneous puncture. 6Fr 10cm Terumo Pierpont sheath placed in right Femoral artery. [id number] [facility] 03:10 PM 0.035 145cm Navilyst 3mmJ wire [id number] tsoummers 03:10 PM 6Fr FR 4 catheter inserted over the wire DNC tsoummers 03:10 PM wire removed tsoumm 03:11 PM RCA angiography performed in multiple views. tsoummers 03:11 PM Recorded Pressure: Ao, EJ=433, Condition=Condition 1 (Aorta) Ao 87/73/79 03:12 PM Catheter removed tsoumm 03:12 PM 6Fr FL 4 catheter inserted over the wire [facility] tsoumm 03:12 PM Coronary Dominance: right tsoummers 03:13 PM EU=839 bpm, OANA=024/79 mmhg, SpO2=94.0 %, Comment=ST 03:13 PM LCA angiography performed in multiple views. tsoummers 03:13 PM Recorded Pressure: Ao, XV=896, Condition=Condition 1 (Aorta) Ao 83/67/74 03:14 PM Catheter removed tsoumm 03:14 PM Bolus angiogram of right Femoral complete: hand injection tsoummers 03:14 PM Procedure completed at 15:14 tsoummers 03:15 PM Did you address REBECCA flow and Dominance? Yes tsoummers 03:15 PM Sign out completed: Radiation Dose 184.87 mGy Fluoro Time: 1.1 Isovue 370 - 200ml contrast 35 ml given by Olaf Pierre DO. Complications: NoneCardiac Rehab Consult needed: NoConfirmed administered medications: Yes tsoummers 03:16 PM Isovue 370 - 200ml,1 Bottle(s) used. tsoummers 03:16 PM Estimated Blood Loss: minimal tsoummers 03:16 PM Post ECG Sinus Tachycardia tsoummers 03:16 PM Post Blood Pressure 111/79 tsoummers 03:16 PM Information taught Cardiac Cath tsoummers 03:16 PM Education needs Procedure, Plan of Care, and Responsibilities of Patient in Care tsoummers 03:16 PM Learning barriers :None tsoummers 03:16 PM Education Methods Verbal tsoummers 03:16 PM Education evaluation Able to repeat information tsoummers 03:16 PM Plavix, Effient or Brilinta given No tsoummers 03:16 PM Delay to floor No tsoummers 03:16 PM Family placed in consult room. tsoummers 03:16 PM Complications: None tsoummers 03:16 PM Fluoro Time: 1.1 [email or web address] 03:17 PM Isovue 370 - 200ml contrast [address] Pierre. oummandreina 03:17 PM Radiation Dose 184.87 mGy oummandreina 03:17 PM Did you address REBECCA flow and Dominance? Yes [email or web address] 03:19 PM Arterial sheath pulled using manual compression and V+ Pad for 15 minutes by Dawn Darden RN 03:22 PM Time: 15:06 Patient comfortable and pain free: Yes [email or web address] 03:22 PM Time: 15:06LOC: 4 = Oriented but drowsy [email or web address] 03:23 PM Report given to Claribel PERKINS Pt taken to E Room #19. 15:23 [email or web address] 03:33 PM Site status No bleeding/hematoma - Rt Groin as reported by Dawn Darden RN at 15:33 vinny 03:33 PM Opsite applied leighann 03:33 PM Arterial sheath pulled using manual compression and V+ Pad for 15 minutes by Dawn Darden RN 03:40 PM Patient out of room: 15:40 vinny Complications Complication None Hemodynamics Pressures Site Systolic/A Wave Diastolic/V Wave Mean AO 87 73 79 AO 83 67 74 Post Procedure Information Blood Pressure: 111/79 mmHg Rhythm: Sinus Tachycardia Post procedural instructions were given Closure Device Time Device Success/Fail 09/19/2017 3:19:00 PM Manual Compression Successful Site Checks Time Location Status Staff Sheath In? Note 03:33 PM Rt Groin No bleeding/hematoma Dawn Darden RN Pulses Updated by Jaleesa Singer RN on 09/19/2017 3:40:24 PM electronically signed on 09/19/2017 3:40:48 PM with status of Final
[2017-09-19 16:01] LABS: Estimated Average Glucose 117 mg/dl; Hemoglobin A1C 5.7 %
[2017-09-19] MEDS: Acetaminophen 325 MG TABLET PO PRN (16:25)
[2017-09-19] MEDS ORDERED: Warfarin perPT PO SCH (18:00)
[2017-09-19] MEDS ORDERED: Menthol 9.1 MG LOZENGE PO PRN (21:09)
[2017-09-19] MEDS ORDERED: *HR* Warfarin 5 MG TABLET PO ONE (21:40)
[2017-09-19] MEDS ORDERED: Acetaminophen IV 1,000 MG/100 ML INFUS..BTL IVPB ONE (22:06)
[2017-09-20 00:46] LABS: Basophils # 0.1 K/mcL (0.0-0.2); Basophils % 0.8 %; Eosinophils # 0.1 K/mcL (0.0-0.6); Eosinophils % 1.7 %; Hematocrit 40.7 % (37.5-50.1); Immature Granulocytes % 0.1 % (0-4); Lymphocytes # 2.8 K/mcL (0.6-4.6); Lymphocytes % 33.9 %; Mean Corpuscular HGB Conc 34.4 g/dL (31.6-35.5); Mean Corpuscular Hemoglobin 31.5 pg (28.0-33.3); Mean Corpuscular Volume 91.5 fL (83.0-100.0); Mean Platelet Volume 11.2 fL (9.4-12.4); Monocytes # 0.9 K/mcL (0.0-1.3); Monocytes % 10.6 %; Neutrophils # 4.4 K/mcL (1.6-8.9); Platelet Count 210 K/mcL (140-400); Red Blood Count 4.45 M/mcL (4.19-5.50); Red Cell Distribution Width 14.3 % (11.5-14.5); Segmented Neutrophils % 52.9 %
[2017-09-20 00:53] LABS: INR 1.2; Prothrombin Time 13.1 Seconds (9.4-12.1)
[2017-09-20 01:01] LABS: BUN/Creatinine Ratio 17 (6-26); Blood Urea Nitrogen 19 mg/dL (6-20); Calcium 8.7 mg/dL (8.6-10.3); Carbon Dioxide 26 mEq/L (23-29); Chloride 106 mEq/L (98-107); Glucose 105 mg/dL (70-105); Osmolality,Calculated 293 (280-300); Potassium 3.6 mEq/L (3.5-5.1); Sodium 140 mEq/L (136-145); eGFR For African Americans > 60 (> 60); eGFR For Non-African Americans > 60 (> 60)
[2017-09-20] MEDS: *HR* Heparin 5,000 UNIT/ML VIAL IVP PRN (01:09)
[2017-09-20] MEDS: Heparin 25,000 UNIT/500 ML D5W 25,000 UNIT/500 ML BAG IVC SCH ×2 (04:58→07:37)
[2017-09-20] MEDS: clonazePAM 0.5 MG TABLET PO PRN ×2 (05:04→23:49)
[2017-09-20] MEDS: Acetaminophen 325 MG TABLET PO PRN (08:31)
[2017-09-20] MEDS: Furosemide 20 MG/2 ML VIAL IVP SCH (08:31)
[2017-09-20] MEDS: Nicotine 21 MG PATCH.TD24 TD SCH (08:31)
[2017-09-20] MEDS ORDERED: Metoprolol XL (24 HR) Succ 25 MG TAB.ER.24H PO SCH (11:00)
--- NOTE | 2017-09-20 11:17 | Cardiology Progress Note ---
<Leonard Banuelos - Last Filed: 09/20/17 11:15> Date of Encounter: 09/20/17 Time of Encounter: 11:15 Assessment and Plan (1) Non-ischemic cardiomyopathy Current Visit: Yes Status: Acute - Echo on 09/19/17 showing EF 15-20% and global reduction of LV systolic dysfunction in the basal lateral wall. Mild increase in LV apical trabeculation . Moderately dilated left ventricle. Indeterminant diastolic dysfunction. Ventricle has moderate reduction in function. Mild MR, TR, SC. - Left heart catheterization on 09/19/17 shows normal coronary arteries with an ejection fraction of approximately 20% - Unclear etiology at this time - Patient is a former heavy drinker, states he drinks 6-8 energy drinks per day , tobacco abuse Plan - Patient will likely require a LifeVest for prophylaxis of arrhythmias. This was expressed to the patient and he stated at that time then he will likely would not wear it. The risks of noncompliance were explained to him including arrhythmias and . He also expresses concerns of prescription coverage, social work has been following for this. Most recently, patient states that he is okay with this. - Would benefit from Cardiac MRI as outpatient. (2) LV (left ventricular) mural thrombus Current Visit: Yes Status: Acute - Evidence of 3 mural thrombi appreciated on echocardiogram - Patient was started on a heparin drip, which was changed to Lovenox which will be bridged to Coumadin - INR 1.2 this morning - Patient was hesitant about starting for the bridging process and was considering leaving AGAINST MEDICAL ADVICE, however we did discuss the extensive risks this morning including stroke, and patient is agreeable to continue bridging process for the time being. (3) Tachycardia Current Visit: Yes Status: Acute (4) Tobacco abuse Current Visit: Yes Status: Acute Encouraged to quit (5) CHF (congestive heart failure) Current Visit: Yes Status: Acute - Acute systolic congestive heart failure secondary to nonischemic cardiomyopathy as above - Initially presented with bilateral pleural effusions, pulmonary edema on CT scan - Symptoms of shortness of breath have improved since admission - -5.8 L off since admission - Clinically improving. Plan - Continue Lasix 20 mg IV daily, lisinopril 2.5 mg, metoprolol 25 mg daily Qualifiers: Heart failure type: systolic Heart failure chronicity: acute Qualified Code(s): I50.21 - Acute systolic (congestive) heart failure Discussion w patient/family: The assessment and plan as outlined above was discussed with the patient and/or family members who expressed understanding and agreement. All questions were answered. Thank you for involving us in the care of your patient. Please call with any questions. Subjective Principal diagnosis: Non ischemic cardiomyopathy Interval history: Patient seen and examined at bedside swallowing. He is just waking up into the room and is lethargic. He states overall he is feeling about the same low complaints of chest pain, shortness of breath, nausea, vomiting. Of note, nursing did report that he is considering leaving AGAINST MEDICAL ADVICE this morning however he has been advised this would not be his best interest. He originally had concerns over not being shower and an extended stay while he transitioned to oral anticoagulation. There is also a concern with this a need for a LifeVest and he has no insurance coverage and he reports that he will not wear it if he does get it. Objective General: Conversant, No Apparent Distress, Other (lethargic. ) HEENT: Atraumatic, Normocephaly Neck: No JVD, Normal carotid pulses Cardiac: Reg Rate and Rhythm, Normal S1 and S2, No Murmur, Other (tachycardic) Lungs: Normal Breath Sounds, No Wheeze, Rales, Rhonchi Neuro: Alert and responsive, No focal deficits noted Abdomen: Soft, Non-Tender Skin: No rashes noted on visualized skin Musculoskeletal: No Chest Wall Tenderness Extremities: No Clubbing, No Cyanosis, No Edema, Normal Pulses Results 09/20/17 00:32 09/20/17 00:32 Lab Results 09/19/17 09/19/17 09/20/17 11:39 18:28 00:32 WBC 8.4 Hgb 14.0 Hct 40.7 Plt Count 210 INR APTT 94.2 H D 59.6 H Sodium Potassium Chloride Carbon Dioxide BUN Creatinine Glucose Calcium 09/20/17 09/20/17 09/20/17 00:32 00:32 00:32 WBC Hgb Hct Plt Count INR 1.2 APTT 57.6 H Sodium 140 Potassium 3.6 Chloride 106 Carbon Dioxide 26 BUN 19 Creatinine 1.09 Glucose 105 Calcium 8.7 09/20/17 07:39 WBC Hgb Hct Plt Count INR APTT 88.8 H D Sodium Potassium Chloride Carbon Dioxide BUN Creatinine Glucose Calcium Consult Discharge Plan - Plan Referrals: Kit Brunner DO [Partnered Physician] - 09/26/17 9:30 am <Avis Monteiro - Last Filed: 09/20/17 12:52> Date of Encounter: 09/20/17 Assessment and Plan (1) CHF (congestive heart failure) Current Visit: Yes Status: Acute - Acute systolic congestive heart failure secondary to nonischemic cardiomyopathy as above - Initially presented with bilateral pleural effusions, pulmonary edema on CT scan - Symptoms of shortness of breath have improved since admission - -5.8 L off since admission - Clinically improving. Plan - Continue Lasix 20 mg IV daily, lisinopril 2.5 mg, metoprolol 25 mg daily I examined this patient and my medical decision-making was reviewed with the Resident Physician. I agree with the documented findings, disposition and treatment plan as described except to the extent set forth below. NICM, possible non compaction , LHC unremarkable Medical management for EF 15% Life Vest to be arranged prior to discharge LV thrombus, patient will need coumadin therapeutic while bridging prior to discharge [facility] as an OP Alcohol cessation Energy drink cessation Qualifiers: Heart failure type: systolic Heart failure chronicity: acute Qualified Code(s): I50.21 - Acute systolic (congestive) heart failure Discussion w patient/family: The assessment and plan as outlined above was discussed with the patient and/or family members who expressed understanding and agreement. All questions were answered. Thank you for involving us in the care of your patient. Please call with any questions. Objective Vital Signs, Last 4 Hours Temp Pulse Resp BP Pulse Ox 09/20/17 11:31 97.8 F 120 18 117/78 97 Results 09/20/17 00:32 09/20/17 00:32 Lab Results 09/19/17 09/20/17 09/20/17 18:28 00:32 00:32 WBC 8.4 Hgb 14.0 Hct 40.7 Plt Count 210 INR APTT 59.6 H Sodium 140 Potassium 3.6 Chloride 106 Carbon Dioxide 26 BUN 19 Creatinine 1.09 Glucose 105 Calcium 8.7 09/20/17 09/20/17 09/20/17 00:32 00:32 07:39 WBC Hgb Hct Plt Count INR 1.2 APTT 57.6 H 88.8 H D Sodium Potassium Chloride Carbon Dioxide BUN Creatinine Glucose Calcium
[2017-09-20] MEDS: *HR* Enoxaparin 80 MG/0.8 ML SYRINGE SQ SCH ×2 (11:28→22:53)
--- NOTE | 2017-09-20 11:30 | Internal Med Progress Note ---
Date of Encounter: 09/20/17 Time of Encounter: 11:20 - Assessment and plan (1) Non-STEMI (non-ST elevated myocardial infarction) Current Visit: Yes Status: Ruled-out Assessment and plan: ruled out [facility] with no significant CAD Discontinue ASA, Lipitor (2) LV (left ventricular) mural thrombus Current Visit: Yes Status: Acute Assessment and plan: Change heparin drip to lovenox Continue warfarin Goal INR is 2-3 (3) Tachycardia Current Visit: Yes Status: Acute Assessment and plan: likely chronic EKG with ischemic changes Added toprol 25mg daily , continue to monitor (4) Tobacco abuse Current Visit: Yes Status: Acute Assessment and plan: smokes 3 PPD NRT provided (5) Non-ischemic cardiomyopathy Current Visit: Yes Status: Acute Assessment and plan: Cause unknown [facility] unremarkable Continue lasix, BB, Lisinopril Life jacket prior to discharge Cardiac MRI (6) CHF (congestive heart failure) Current Visit: Yes Status: Acute Assessment and plan: patient with acute systolic CHF, with bilateral large pleural effusions, pulm edema on CT scan ECHO also shows LV thrombus NICMP BNP 1840 Cardiology following Continue lasix continue low dose ACEi 2.5mg daily Consider thoracentensis , CXR shows worsening Strict Intake and outputs i/o -5.8L Daily weights Fluid restriction diet Qualifiers: Heart failure type: systolic Heart failure chronicity: acute Qualified Code(s): I50.21 - Acute systolic (congestive) heart failure (7) Pleural effusion Current Visit: Yes Status: Acute Assessment and plan: likely from CHF For thoracentensis when stable , currently not hypoxic or symptomatic at rest Will discuss with patient - Time Spent With Patient Total time spent is greater than 50% in coordination of care (as documented) at patient's floor/unit and/or counseling patient: - Subjective Interval history: 32 M with acute systolic CHF, Elevated troponin, Hx of polysubstance abuse, LV thrombus Endorsed use of illicit drugs (unsure which as it was at a democrat), also endorsed drinking 8-9 energy drinks daily he also smoked 3 packs daily, on a patch he has no new complains today s/p [facility] 09/19 with no CAD ASA, Lipitor has been discontinued We will switch to lovenox from heparin drip Added Toprol Cardiology following For life jacket prior to discharge Repeat CXR ordered to assess pleural effusion I/O -5.7 L - Constitutional Vitals: Temp Pulse Resp BP Pulse Ox 97.4 F L 122 18 125/95 95 09/20/17 06:56 09/20/17 06:56 09/20/17 06:56 09/20/17 06:56 09/20/17 06:56 General appearance: Present: A&O X 3, pleasant, no acute distress - Head Head exam: Present: atraumatic, normocephalic - Eye Eye exam: Present: PERRL, conjuntiva pink, sclera anicteric Pupils: Present: PERRL - Neck Neck exam general surgery: Present: supple, trachea midline. Absent: lymphadenopathy - Respiratory Respiratory exam: Present: CTAB. Absent: accessory muscle use, rales, rhonchi, wheezes - Cardiovascular Cardiovascular exam: Present: RRR, +S1, +S2. Absent: diastolic murmur, gallop, rubs, systolic murmur - GI/Abdominal GI/Abdominal exam: Present: normal bowel sounds, soft, no peritoneal signs. Absent: distended, tenderness - Extremities Exam Extremities exam: Present: warm, radial pulses palpable and symmetrical. Absent : calf tenderness, cyanotic, pedal edema - Neurological Exam Neurological exam: Present: alert, CN II-XII intact, oriented X3, no focal deficits. Absent: pronater drift, facial droop, speech deficit - Skin Skin exam: Present: dry, intact Internal Medicine: Result - Labs CBC & Chem 7: 09/20/17 00:32 09/20/17 00:32 Labs: Short CBC 09/20/17 Range/Units 00:32 WBC 8.4 (4.3-11.1) K/mcL Hgb 14.0 (12.9-16.9) g/dL Hct 40.7 (37.5-50.1) % Plt Count 210 (140-400) K/mcL Neutrophils # 4.4 (1.6-8.9) K/mcL BMP 09/20/17 00:32 Sodium 140 Potassium 3.6 Chloride 106 Carbon Dioxide 26 BUN 19 Creatinine 1.09 Glucose 105 Calcium 8.7 - ABG Interpretation ABG results: PT/INR, D-dimer PT 13.1 Seconds (9.4-12.1) H 09/20/17 00:32 Consult Discharge Plan - Plan Referrals: Kit Brunner DO [Partnered Physician] - 09/26/17 9:30 am
[2017-09-20] MEDS ORDERED: *HR* Warfarin 7.5 MG TABLET PO ONE (18:00)
[2017-09-20] MEDS: Melatonin 3 MG TABLET PO PRN (23:49)
[2017-09-21] MEDS: Ondansetron 4 MG/2 ML VIAL IVP PRN ×2 (03:46→14:29)
[2017-09-21 05:42] LABS: INR 1.5; Prothrombin Time 16.2 Seconds (9.4-12.1)
[2017-09-21 05:53] LABS: BUN/Creatinine Ratio 17 (6-26); Blood Urea Nitrogen 19 mg/dL (6-20); Carbon Dioxide 24 mEq/L (23-29); Chloride 108 mEq/L (98-107); Glucose 120 mg/dL (70-105); Osmolality,Calculated 293 (280-300); Potassium 3.6 mEq/L (3.5-5.1); Sodium 140 mEq/L (136-145); eGFR For African Americans > 60 (> 60); eGFR For Non-African Americans > 60 (> 60)
[2017-09-21] MEDS ORDERED: Metoprolol XL (24 HR) Succ 50 MG TAB.ER.24H PO SCH (09:00)
--- NOTE | 2017-09-21 09:08 | Cardiology Progress Note ---
Date of Encounter: 09/21/17 Time of Encounter: 09:06 Assessment and Plan (1) Non-ischemic cardiomyopathy Current Visit: Yes Status: Acute TTE 09/19/17 LVEF 15-20%. Severe global reduction in LV systolic dysfunction with mild regional variation in the basal lateral wall. LHC normal coronaries. NICM, possible non compaction. Recommend Cardiac MRI as outpt. Will refer to [facility] as outpt. Recommend lifevest to prevent sudden cardiac . Discussed with RN, lifevest to be applied today. Continue BB, ACEi. On IV Lasix 20mg daily, transition to PO at d/c. (2) CHF (congestive heart failure) Current Visit: Yes Status: Acute Acute systolic CHF EF 15-20%. NICM, possible non compaction, LHC with normal coronaries. Cardiac MRI as an OP. Alcohol cessation and Energy drink cessation recommended. CXR yesterday showed persistent bilateral pleural effusions and bilateral lower lobe airspace opacification. The pleural effusions appear to be slightly increased. Recommend continuing daily IV Lasix 20mg. Reports dyspnea has improved. 2L fluid and Na restriction, daily weights, strict I/Os. Cumulative I/O -6568mL. Lifevest to be applied today. Qualifiers: Heart failure type: systolic Heart failure chronicity: acute Qualified Code(s): I50.21 - Acute systolic (congestive) heart failure (3) LV (left ventricular) mural thrombus Current Visit: Yes Status: Acute Evidence of 3 mural thrombi on TTE. Initially on heparin drip, changed to Lovenox bridging. Recommend Lovenox bridging until INR is therapeutic 2-3 range. Will refer to [facility] for outpt management. INR 1.5 today. Discussion w patient/family: The assessment and plan as outlined above was discussed with the patient and/or family members who expressed understanding and agreement. All questions were answered. Thank you for involving us in the care of your patient. Please call with any questions. I will discuss all the above with Dr. Monteiro and make changes as necessary. Subjective Principal diagnosis: Non ischemic cardiomyopathy Interval history: Pt sleeping when I entered the room, but did wake to answer questions. He denies chest pain, reports dyspnea has improved and denies LE edema. Objective Vital Signs, Last 4 Hours Pulse Resp BP 09/21/17 07:19 113 18 128/97 Vital Signs Temp Pulse Resp BP Pulse Ox 09/21/17 07:19 113 18 128/97 09/21/17 05:00 98.2 F 119 16 115/82 98 09/20/17 20:00 119/88 09/20/17 19:00 98.4 F 133 16 129/119 97 09/20/17 15:50 97.8 F 113 20 112/81 90 09/20/17 11:31 97.8 F 120 18 117/78 97 Intake and Output 09/20/17 09/21/17 09/21/17 23:59 07:59 15:59 Intake Total 600 / 600 360 / 360 Output Total 700 / 700 600 / 600 Balance -100 / -100 -240 / -240 Intake: Oral 600 / 600 360 / 360 Output: Urine 600 / 600 Urine/Stool Mix 700 / 700 Other: Stool Size Moderate Stool Consistency formed Stool Color Brown # Bowel Movements 1 Weight 65.8 kg Patient Weight 09/21/17 23:59 Weight 65.8 kg General: Conversant, No Apparent Distress HEENT: Atraumatic, Normocephaly, Mucus Membranes Moist Neck: Normal carotid pulses Cardiac: Reg Rate and Rhythm, Normal S1 and S2, No Murmur Lungs: Other (diminished) Neuro: Alert and responsive, No focal deficits noted Abdomen: Soft, Non-Tender Skin: No rashes noted on visualized skin Musculoskeletal: No Chest Wall Tenderness Extremities: No Clubbing, No Cyanosis, No Edema, Normal Pulses Results 09/20/17 00:32 09/21/17 04:11 Lab Results Impressions Chest X-Ray 09/20/17 07:52 IMPRESSION: Persistent bilateral pleural effusions and bilateral lower lobe airspace opacification. The pleural effusions appear to be slightly increased. D/ 09/20/2017 13:11:56 Buzz Licona MD / bcarter Interpreting Provider: Buzz Licona MD 09/21/17 09/21/17 04:11 04:11 INR 1.5 Sodium 140 Potassium 3.6 Chloride 108 H Carbon Dioxide 24 BUN 19 Creatinine 1.10 Glucose 120 H Calcium 9.0 BMP 09/21/17 Range/Units 04:11 Sodium 140 (136-145) mEq/L Potassium 3.6 (3.5-5.1) mEq/L Chloride 108 H (98-107) mEq/L Carbon Dioxide 24 (23-29) mEq/L BUN 19 (6-20) mg/dL Creatinine 1.10 (0.70-1.30) mg/dL Glucose 120 H (70-105) mg/dL Calcium 9.0 (8.6-10.3) mg/dL Active Medications Acetaminophen (Tylenol) 650 mg PO Q6HR PRN PRN Reason: Pain Stop: 03/21/18 16:02 Last Admin: 09/20/17 08:31 Dose: 650 mg Clonazepam (Klonopin) 0.5 mg PO BID PRN PRN Reason: Anxiety Stop: 03/19/18 21:15 Last Admin: 09/20/17 23:49 Dose: 0.5 mg Enoxaparin Sodium (Lovenox) 70 mg 1 mg/kg (70 mg) SQ Q12H KEVEN PRN Reason: Protocol Stop: 03/22/18 11:01 Last Admin: 09/20/17 22:53 Dose: 70 mg Furosemide (Lasix) 20 mg IVP DAILY KEVEN Stop: 03/21/18 09:01 Last Admin: 09/20/17 08:31 Dose: 20 mg Lisinopril (Zestril) 2.5 mg PO DAILY KEVEN PRN Reason: Protocol Stop: 03/20/18 13:16 Last Admin: 09/20/17 08:30 Dose: 2.5 mg Melatonin (Melatonin) 3 mg PO HS PRN PRN Reason: Insomnia Stop: 03/22/18 23:40 Last Admin: 09/20/17 23:49 Dose: 3 mg Menthol (Cough Drops) 9.1 mg PO Q2H PRN PRN Reason: Cough Stop: 03/21/18 21:10 Last Admin: 09/19/17 21:53 Dose: 9.1 mg Metoprolol Succinate (Toprol Xl) 50 mg PO DAILY KEVEN Stop: 03/23/18 09:01 Naloxone HCl (Narcan) 0.4 mg IVP Q2MIN PRN PRN Reason: SEE COMMENTS Stop: 03/19/18 18:01 Nicotine (Nicoderm) 21 mg TD DAILY KEVEN PRN Reason: Protocol Stop: 03/21/18 11:16 Last Admin: 09/20/17 08:31 Dose: 21 mg Ondansetron HCl (Zofran) 4 mg IVP Q6HR PRN; Protocol PRN Reason: Nausea And Vomiting Stop: 03/23/18 03:24 Last Admin: 09/21/17 03:46 Dose: 4 mg Warfarin Sodium (Coumadin Perpt) 1 each PO RPHPROT KEVEN Stop: 03/21/18 18:01 - Imaging and Cardiology Echo: report reviewed Cardiac cath: report reviewed - EKG Interpretation EKG results cardiology: other (12 hr tele AVG HR 122, sinus tach, no significant pauses or arrhythmias noted.) Consult Discharge Plan - Plan Referrals: Kit Brunner DO [Partnered Physician] - 09/26/17 9:30 am
[2017-09-21] MEDS: Nicotine 21 MG PATCH.TD24 TD SCH (09:33)
[2017-09-21] MEDS: Furosemide 20 MG/2 ML VIAL IVP SCH (09:33)
--- NOTE | 2017-09-21 11:26 | Internal Med Progress Note ---
Date of Encounter: 09/21/17 Time of Encounter: 11:26 - Assessment and plan (1) Non-STEMI (non-ST elevated myocardial infarction) Current Visit: Yes Status: Ruled-out Assessment and plan: ruled out [facility] with no significant CAD Discontinue ASA, Lipitor (2) LV (left ventricular) mural thrombus Current Visit: Yes Status: Acute Assessment and plan: Continue lovenox Continue warfarin Goal INR is 2-3 (3) Tachycardia Current Visit: Yes Status: Acute Assessment and plan: likely chronic EKG with ischemic changes Increase toprol to 50mg po today, continue to monitor (4) Tobacco abuse Current Visit: Yes Status: Chronic Assessment and plan: smokes 3 PPD NRT provided (5) Non-ischemic cardiomyopathy Current Visit: Yes Status: Acute Assessment and plan: Cause unknown [facility] unremarkable Continue lasix, BB, Lisinopril Life jacket prior to discharge Cardiac MRI as out-patient (6) CHF (congestive heart failure) Current Visit: Yes Status: Acute Assessment and plan: patient with acute systolic CHF, with bilateral large pleural effusions, pulm edema on CT scan ECHO also shows LV thrombus NICMP BNP 1840 Cardiology following Continue lasix continue low dose ACEi 2.5mg daily Consider thoracentensis , CXR shows worsening, patient agrees will consult IR Strict Intake and outputs i/o -6.8 Daily weights Fluid restriction diet Qualifiers: Heart failure type: systolic Heart failure chronicity: acute Qualified Code(s): I50.21 - Acute systolic (congestive) heart failure (7) Pleural effusion Current Visit: Yes Status: Acute Assessment and plan: likely from CHF CXR done 09/20 shows worsening pleural effusion Patient agrees to be tapped, will consult IR - Time Spent With Patient Total time spent is greater than 50% in coordination of care (as documented) at patient's floor/unit and/or counseling patient: - Subjective Interval history: 32 M with acute systolic CHF, Elevated troponin, Hx of polysubstance abuse, LV thrombus Endorsed use of illicit drugs (unsure which as it was at a democrat), also endorsed drinking 8-9 energy drinks daily he also smoked 3 packs daily, on a patch he has no new complains today s/p C 09/19 with no CAD ASA, Lipitor has been discontinued 09/20 Cardiology following For life jacket prior to discharge - Constitutional Vitals: Temp Pulse Resp BP Pulse Ox 98.2 F 113 18 128/97 98 09/21/17 05:00 09/21/17 07:19 09/21/17 07:19 09/21/17 07:19 09/21/17 05:00 General appearance: Present: A&O X 3, pleasant, no acute distress - Head Head exam: Present: atraumatic, normocephalic - Eye Eye exam: Present: PERRL, conjuntiva pink, sclera anicteric Pupils: Present: PERRL - Neck Neck exam general surgery: Present: supple, trachea midline. Absent: lymphadenopathy - Respiratory Respiratory exam: Present: decreased breath sounds. Absent: rales, rhonchi, stridor, wheezes - Cardiovascular Cardiovascular exam: Present: +S1, +S2, tachycardia. Absent: diastolic murmur, gallop, rubs, systolic murmur - GI/Abdominal GI/Abdominal exam: Present: normal bowel sounds, soft, no peritoneal signs. Absent: distended, tenderness - Extremities Exam Extremities exam: Present: warm, radial pulses palpable and symmetrical. Absent : calf tenderness, cyanotic, pedal edema - Neurological Exam Neurological exam: Present: alert, CN II-XII intact, oriented X3, no focal deficits. Absent: pronater drift, facial droop, speech deficit - Skin Skin exam: Present: dry, intact Internal Medicine: Result - Labs CBC & Chem 7: 09/20/17 00:32 09/21/17 04:11 Labs: BMP 09/21/17 04:11 Sodium 140 Potassium 3.6 Chloride 108 H Carbon Dioxide 24 BUN 19 Creatinine 1.10 Glucose 120 H Calcium 9.0 - ABG Interpretation ABG results: PT/INR, D-dimer PT 16.2 Seconds (9.4-12.1) H 09/21/17 04:11 - Impressions Impressions Chest X-Ray 09/20/17 07:52 IMPRESSION: Persistent bilateral pleural effusions and bilateral lower lobe airspace opacification. The pleural effusions appear to be slightly increased. D/ / 09/20/2017 13:11:56 Buzz Licona MD / [email or web address] Interpreting Provider: Buzz Licona MD Consult Discharge Plan - Plan Referrals: Kit Brunner DO [Partnered Physician] - 09/26/17 9:30 am
[2017-09-21] MEDS: Acetaminophen 325 MG TABLET PO PRN (14:28)
[2017-09-21] MEDS: *HR* Enoxaparin 80 MG/0.8 ML SYRINGE SQ SCH ×2 (14:31→22:49)
[2017-09-21] MEDS ORDERED: *HR* Warfarin 5 MG TABLET PO ONE (18:00)
[2017-09-21] MEDS ORDERED: Ketorolac 30 MG/ML VIAL IVP ONE (18:49)
[2017-09-21] MEDS: Melatonin 3 MG TABLET PO PRN (20:41)
[2017-09-21] MEDS: clonazePAM 0.5 MG TABLET PO PRN (20:41)
[2017-09-22 06:57] LABS: INR 2.3; Prothrombin Time 25.3 Seconds (9.4-12.1)
[2017-09-22 07:05] LABS: BUN/Creatinine Ratio 20 (6-26); Blood Urea Nitrogen 22 mg/dL (6-20); Calcium 8.8 mg/dL (8.6-10.3); Carbon Dioxide 26 mEq/L (23-29); Chloride 105 mEq/L (98-107); Glucose 171 mg/dL (70-105); Osmolality,Calculated 293 (280-300); Potassium 3.6 mEq/L (3.5-5.1); Sodium 138 mEq/L (136-145); eGFR For African Americans > 60 (> 60); eGFR For Non-African Americans > 60 (> 60)
[2017-09-22 07:12] VITALS: BP 103/80
[2017-09-22] MEDS ORDERED: Furosemide 20 MG TABLET PO SCH (09:00)
--- NOTE | 2017-09-22 09:07 | Event Note ---
Date of Encounter: 09/22/17 Time of Encounter: 09:03 32 YO M wth EF 15%, NICMP, on Couamdin and Lovenox S: RN naty attention to me of RUW tingling and numbness Exam at the bedside: No neuro deficits, AAOX3, normal sensation all through, CN intact, no facial droop or speech deficits A: Suspect intracranial bleed R: STAT Head CT: Revealed ~1.5cm frontal bleed. Lovenox discontinued. INR 2.3. Spoke to Neurologist, recommendation to transfer patient to [place] or [facility], no urgent indication to reverse INR except if stated by [facility] neurology Patient and his mother at the bedside educated with RN. hemodynamically and neurologically stable at this time.
--- NOTE | 2017-09-22 09:15 | Transfer Summary ---
Date of Encounter: 09/22/17 Time of Encounter: 09:11 Transfer Discharge Sum: Diag - Discharge Diagnosis (1) Non-STEMI (non-ST elevated myocardial infarction) Status: Ruled-out (2) LV (left ventricular) mural thrombus Status: Acute (3) Tachycardia Status: Acute (4) Tobacco abuse Status: Chronic (5) Non-ischemic cardiomyopathy Status: Acute (6) CHF (congestive heart failure) Status: Acute (7) Pleural effusion Status: Acute Transfer Discharge Sum: Med - Medications Active and Home Medications: Home Medications No Known Home Drugs 09/17/17 [History Confirmed 09/17/17] Active Medications Acetaminophen (Tylenol) 650 mg PO Q6HR PRN PRN Reason: Pain Stop: 03/21/18 16:02 Last Admin: 09/21/17 14:28 Dose: 650 mg Clonazepam (Klonopin) 0.5 mg PO BID PRN PRN Reason: Anxiety Stop: 03/19/18 21:15 Last Admin: 09/21/17 20:41 Dose: 0.5 mg Furosemide (Lasix) 20 mg PO DAILY KEVEN Stop: 03/24/18 09:01 Lisinopril (Zestril) 2.5 mg PO DAILY KEVEN PRN Reason: Protocol Stop: 03/20/18 13:16 Last Admin: 09/21/17 09:33 Dose: 2.5 mg Melatonin (Melatonin) 3 mg PO HS PRN PRN Reason: Insomnia Stop: 03/22/18 23:40 Last Admin: 09/21/17 20:41 Dose: 3 mg Menthol (Cough Drops) 9.1 mg PO Q2H PRN PRN Reason: Cough Stop: 03/21/18 21:10 Last Admin: 09/19/17 21:53 Dose: 9.1 mg Metoprolol Succinate (Toprol Xl) 50 mg PO DAILY KEVEN Stop: 03/23/18 09:01 Last Admin: 09/21/17 09:33 Dose: 50 mg Naloxone HCl (Narcan) 0.4 mg IVP Q2MIN PRN PRN Reason: SEE COMMENTS Stop: 03/19/18 18:01 Nicotine (Nicoderm) 21 mg TD DAILY KEVEN PRN Reason: Protocol Stop: 03/21/18 11:16 Last Admin: 09/21/17 09:33 Dose: 21 mg Ondansetron HCl (Zofran) 4 mg IVP Q6HR PRN; Protocol PRN Reason: Nausea And Vomiting Stop: 03/23/18 03:24 Last Admin: 09/21/17 14:29 Dose: 4 mg Warfarin Sodium (Coumadin Perpt) 1 each PO [facility] Stop: 03/21/18 18:01 Transfer Discharge Sum: Data Procedures and tests throughout hospitalization: Pending Orders 09/17/17 21:14 clonazePAM [Klonopin] 0.5 mg PO BID PRN 09/18/17 10:52 Intake and Output, Strict [RC] DAILY Urinary cath initiate/manage [RC] .ONCE 09/18/17 10:54 Assess for bleeding [RC] .PER UNIT PROTOCOL Assess neurologic status [RC] q4h Communication order [RC] .PRN Communication order [RC] CONT Notify provider [RC] .PRN 09/18/17 11:45 Consult to [employer] [CONS] Routine 09/18/17 13:15 Lisinopril [Zestril] 2.5 mg PO DAILY 09/19/17 11:08 Cardiac Cath Site Preparation Routine Oxygen via nasal cannula Nasal Cannula 2 lpm Signed consent on chart [RC] NOW Consult to Cardiac Rehabilitation-Phase1 [CONS] Routine 09/19/17 11:15 Nicotine Patch [Nicoderm] 21 mg TD DAILY 09/19/17 15:29 Life Vest [wearable cardiodefibrilator] Routine 09/19/17 16:01 Acetaminophen [Tylenol] 650 mg PO Q6HR PRN 09/19/17 18:00 Warfarin perPT [Coumadin perPT] 1 each PO RPHPROT 09/19/17 21:09 Menthol [Cough Drops] 9.1 mg PO Q2H PRN 09/19/17 Dinner Cardiac Diet 09/20/17 23:39 Melatonin 3 mg PO HS PRN 09/21/17 03:23 Ondansetron [Zofran] 4 mg IVP Q6HR PRN 09/21/17 09:00 Metoprolol XL (24 HR) Succ [Toprol XL] 50 mg PO DAILY 09/21/17 13:13 Consult to Interventional Radiology [CONS] Routine 09/22/17 05:04 EKG [ECG 12 lead ECG] [ECG] ONCE 09/22/17 05:05 12 lead ECG assessment [RC] NOW 09/22/17 09:00 Furosemide [Lasix] 20 mg PO DAILY 09/23/17 04:00 Chem 7 [Basic Metabolic Panel] AM 0400 PT/INR [Prothrombin Time INR] [COAG] AM 0400 - Impressions ITS Impressions Echocardiogram 09/18/17 18:02 Impressions: Sinus tachycardia. LVEF 15-20%. Severe global reduction in LV systolic dysfunction with mild regional variation in the basal lateral wall. There is mild increase in LV apical trabeculation. There are multiple echodensities in the LV apex possibly consistent with ventricular thrombus. One is located in the LV apex and is non-mobile measuring 1.5x1.1cm, another is located along the anterolateral wall and is partially mobile measuring 0.8x0.9cm, another is mobile and located along the distal inferoseptum measuring 0.4x0.5cm. Moderately dilated left ventricle. Indeterminate diastolic function. RV is normal in size with moderate reduction in function. Mild-moderate mitral regurgitation. Mild tricuspid regurgitation. Mild pulmonary hypertension. Mild pulmonic regurgitation. A pleural effusion is present. The IVC is dilated. Abnormal findings communicated to ordering provider. Cardiology service made aware. Left Ventricular Wall Motion: Rest Echo Findings The apex, apical inferior, mid inferior, basal inferior, apical anterior, mid anterior, basal anterior, apical septal, mid inferior septal, basal inferior septal, apical lateral, mid anterior lateral, basal anterior lateral, mid anterior septal, mid inferior lateral, basal anterior septal and basal inferior lateral alvarez were hypokinetic. Findings: Study Quality * Technically adequate exam. ECG Findings * Sinus tachycardia. Left Ventricle * LVEF 15-20%. * Moderately dilated left ventricle. * Definity echo contrast was not used. * There is a left ventricular thrombus. * Indeterminate diastolic function. Right Ventricle * RV is normal in size with moderate reduction in function. Left Atrium * Moderately dilated left atrium. Right Atrium * Mildly dilated right atrium. Aortic Valve * No aortic regurgitation. * Trileaflet aortic valve. * No aortic stenosis. Mitral Valve * Normal mitral valve structure. * No mitral stenosis. * Mild-moderate mitral regurgitation. Tricuspid Valve * Normal tricuspid valve structure. * Mild tricuspid regurgitation. * Estimated RA pressure is 20 mmHg. * Estimated RVSP is 44 mmHg. * Mild pulmonary hypertension. Pulmonic Valve * Normal pulmonic valve structure. * No pulmonic stenosis. * Mild pulmonic regurgitation. Pulmonary Artery * Normal visualized portions of the main pulmonary artery. Aorta * Normally sized aortic root. Pericardium * There is no pericardial effusion present. Pleural Effusion * A pleural effusion is present. Interatrial Septum * No evidence of PFO by color Doppler. IVC * The IVC is dilated. * < 50% respiratory change. Chest X-Ray 09/20/17 07:52 IMPRESSION: Persistent bilateral pleural effusions and bilateral lower lobe airspace opacification. The pleural effusions appear to be slightly increased. D/ / 09/20/2017 13:11:56 Buzz Licona MD / enio Interpreting Provider: Buzz Licona MD Head CT 09/22/17 08:18 IMPRESSION: 1.6 cm focus of acute intraparenchymal hemorrhage within the white matter of the right frontal lobe. There is no significant mass effect or midline shift. The hemorrhage may be secondary to an underlying AVM or cavernoma, less likely a focal mass lesion. Suggest further characterization with a dedicated head CTA or brain MRA to evaluate for a possible underlying vascular malformation. Findings were discussed with Timothy Albarran at 8:58 am on 09/22/2017. D/ / Leonard Izaguirre MD / Leonard Izaguirre MD Interpreting Provider: Leonard Izaguirre MD Transfer Discharge Sum: Prov Date of admission: 09/17/17 18:42 Primary care physician: PCP NONE Admitting clinician: Ansley Lozano Attending physician on admission: Ansley Lozano Consults: 09/18/17 11:45 Consult to [employer] [CONS] Routine Reason for SW Consult: No insurance; newly found multiple health issues; will need assistance with medications and other financial resources 09/19/17 11:08 Consult to Cardiac Rehabilitation-Phase1 [CONS] Routine Comment: Reason for Consult: NSTEMI Call Completed: No 09/21/17 13:13 Consult to Interventional Radiology [CONS] Routine Consulting Provider: Radiology Interventional Cols Reason for Consult: Thoracentensis for pleural effusion Call Completed: Yes Attending physician on discharge: Timothy Albarran Discharging clinician: Timothy Albarran Anticipated date of transfer: 09/22/17 Receiving physician/facility: [facility] Transfer Discharge Sum: A/P - Plan Functional capacity at transfer: independent ambulation Overall status at transfer: patient is not back to baseline Disposition: Transfer Critical Access Hosp Transfer Discharge Sum: Hosp Hospital course: Mr. Byrd is a 32 year old male with no significant medical history with presented to the hospital with complaints of shortness of breath and chest pain. He was admitted to [facility] on 09/17/17. Social history includes patient drinking tonight energy drinks daily, smokes 3 packs per day daily, and polysubstance abuse. Findings on arrival in the ER revealed normal complete blood count and normal chemistry. CT angiogram of the chest with no pulmonary embolism and no infiltrates, with significant right-sided pleural effusion, no pneumonia. Troponin was elevated with a peak of 0.55. EKG showed nonspecific ST segment changes, sinus tachycardia with ventricular rate of 122.. BNP was 1584. He will started on heparin infusion with a preliminary diagnosis of an STEMI and CHF exacerbation. Cardiology was consulted. TTE 09/19/17 LVEF 15-20%. Severe global reduction in LV systolic dysfunction with mild regional variation in the basal lateral wall. Left heart catheter done showed normal coronaries. Patient continued to be treated with low-dose lisinopril, metoprolol twice a day , IV Lasix 20 mg daily, Lovenox therapeutic dose subcutaneously, and bridged with Coumadin. He was awaiting delivery of life vest . This morning, the patient complained of right upper extremity tingling and numbness as well as weakness. Stat head CT shows 1.6 cm frontal lobe hemorrhage with no evidence of midline shift. INR this morning is 2.3. The patient remained alert awake and oriented, with no pronator drift of the right upper extremity, sensation is intact. Pupils are equal and regular. He remains tachycardic with a heart rate of 122, however blood pressure remained stable. Stat transfer called me to [facility], up with her neurologist Dr. Bustos who recommended rapid transfer to [facility] emergency room for neurosurgical evaluation. INR was not reversed prior to transfer, as this was causing the patient's transfer. Patient's parents at the bedside as well as the patient at the bedside educated. - Time Spent with Patient Total time spent providing and/or coordinating transfer services: Greater than 30 minutes (65 minutes spent on bedside evaluation, education, specialist consult, transfer center phone call.) Transfer Discharge Sum: Exam - Constitutional Vitals: Vital Signs Temp Pulse Resp BP Pulse Ox 09/22/17 07:09 97.6 F 121 17 103/80 95 09/22/17 04:45 98.2 F 120 17 103/84 97 09/21/17 22:52 110 16 101/69 90 09/21/17 16:23 113 19 110/90 98 09/21/17 11:00 128 16 122/85 Intake and Output 09/21/17 09/22/17 09/22/17 23:59 07:59 15:59 Intake Total 480 / 480 Output Total 600 / 600 Balance 480 / 480 -600 / -600 Intake: Oral 480 / 480 Output: Urine 600 / 600 Other: Meal Dinner Percent of Meal Consumed 75% Weight 65.4 kg Blood Glucose* 113 Patient Weight 09/22/17 23:59 Weight 65.4 kg - Head Head exam: Present: atraumatic - Eye Eye exam: Present: EOMI, normal appearance, PERRL - ENT ENT exam: Present: mucous membranes moist - Neck Neck exam: Present: normal inspection - Respiratory Respiratory exam: Present: CTAB - Cardiovascular Cardiovascular exam: Present: RRR, +S1, +S2, tachycardia - GI/Abdominal GI/Abdominal exam: Present: normal bowel sounds, soft. Absent: tenderness - Extremities Exam Extremities exam: Present: pedal edema - Back Exam Back exam: Present: normal inspection. Absent: CVA tenderness (L), CVA tenderness (R) - Neurological Exam Neurological exam: Present: alert, CN II-XII intact, normal gait, oriented X3, reflexes normal, strengths equal and symetr throughout. Absent: pronater drift , facial droop, speech deficit
[2017-09-22] MEDS ORDERED: Acetaminophen IV 500 MG/50 ML INFUS..BTL IVPB ONE (09:22)
[2017-09-23 08:29] LABS: Mycoplasma pneumoniae IgG 0.25 U/L (<=0.09)
--- NOTE | 2017-09-23 18:49 | Electrocardiograph Report ---
[address] [id number] Test Date: 2017-09-22 Pat Name: Steven Byrd Department: 111 Room: 2NE19 Gender: M Lmft: LUPIS : 1985 Requested By: Elias Nassar Order Number: [id number] Reading MD: Stanford Silva Measurements Intervals [place] Rate: 116 P: 3 KS: 104 QRS: 60 QRSD: 95 T: 246 QT: 359 QTc: 428 Interpretive Statements SINUS TACHYCARDIA WITH SHORT [place] INTERVAL Electronically Signed On 09-23-2017 18:48:08 EDT by Stanford Silva
== END 2017-09-22 10:09 | disposition critical access hospital (66) | DRG 190 ==
LOC: 2NENU 13:09 → EMEROO 13:09 → OBSVTOIN 18:42 → SUATTDRO 18:42 → 2NENU 19:56
PROVIDERS: ADMIT Family Medicine; ATTEND Internal Medicine

== ENCOUNTER 2017-11-22 13:43 | Inpatient (IN) ==
--- NOTE | 2017-11-22 14:27 | Emergency Department Note ---
Disposition Clinical Impression: Difficulty breathing, Elevated troponin, PAT (acute kidney injury) Ascites Qualifiers: Ascites type: other type Qualified Code(s): R18.8 - Other ascites Hypotension Qualifiers: Hypotension type: unspecified hypotension type Qualified Code(s): I95.9 - Hypotension, unspecified Nausea and vomiting Qualifiers: Vomiting type: unspecified Vomiting Intractability: intractable Qualified Code( s): R11.2 - Nausea with vomiting, unspecified Disposition: Admitted As Inpatient Condition: Fair Time of Disposition: 19:20 General Adult HPI - General Chief complaint: ED Abdominal Pain Stated complaint: abd pain Time Seen by Provider: 11/22/17 13:53 Source: patient, family Limitations: no limitations Nursing Notes Reviewed: Yes Vital Signs Reviewed: Yes - History of Present Illness HPI Narrative: 32-year-old male with complicated past medical history including congestive heart failure with an EF of approximately 15%, ventricular thrombus, and STEMI and intracranial hemorrhage presented to the emergency department with chief complaint of nausea and vomiting. Patient states for the past 4-5 days he has had some difficulty in breathing, nausea, abdominal distention. Patient states he did not want to come into the emergency department but realized today he could not handle being at home anymore due to severe nausea. Patient has multiple episodes of nonbloody nonbilious vomiting in the room. He denies any diarrhea. Denies any urinary symptoms. Patient states he has noticed his abdomen become more distended over the past few days and this has happened one time previously when he was diagnosed with congestive heart failure. Patient denies any dizziness or headache. Has had decreased oral intake due to the nausea. Has not tried anything at home for this. Pain Scale: 8 - Related Data Home Medications Medication Instructions Recorded Confirmed Furosemide [Lasix] 40 mg PO DAILY 11/22/17 11/22/17 Lisinopril [Zestril] 5 mg PO DAILY 11/22/17 11/22/17 Metoprolol Succinate [Toprol Xl] 50 mg PO DAILY 11/22/17 11/22/17 Pantoprazole Sodium [Protonix] 40 mg PO DAILY 11/22/17 11/22/17 Potassium Chloride 10 meq PO BID 11/22/17 11/22/17 Warfarin [Coumadin] 5 mg PO SUMOTUTHSA 11/22/17 11/22/17 Warfarin [Coumadin] 7.5 mg PO WEFR 11/22/17 11/22/17 Allergies Allergy/AdvReac Type Severity Reaction Status Date / Time No Known Allergies Allergy Verified 11/22/17 17:10 All systems ED: reviewed and negative except as stated. Constitutional: Denies: fever, chills Eyes: Reports: as per HPI ENT ED: Reports: as per HPI Cardiovascular: Reports: dyspnea on exertion. Denies: chest pain, palpitations Respiratory: Reports: dyspnea. Denies: wheezes, hemoptysis Gastrointestinal: Reports: abdominal pain, nausea, vomiting. Denies: diarrhea Genitourinary: Reports: as per HPI Musculoskeletal: Reports: as per HPI Integumentary: Denies: rash, abrasion Neurological: Denies: weakness, numbness, paresthesias Psychiatric: Reports: as per HPI Endocrine: Reports: as per HPI Hematological/Lymphatic: Reports: as per HPI Allergic/Immunologic: Reports: as per HPI Past Medical History - Past Medical History Attestation: Yes The following information was validated with the patient. Medical history: Reports: CHF, CVA, hypertension, myocardial infarction, other Psychiatric history: Reports: no psych history - Social History Smoking Status: Current every day smoker Smokeless Tobacco Status: No Alcohol use: Reports: none Drug use: Reports: marijuana Physical Exam - General Limitations: no limitations General appearance: alert, in no apparent distress - Head Head exam: atraumatic, normocephalic, normal inspection - Eye Eye exam: Present: normal appearance, PERRL, EOMI. Absent: scleral icterus, conjunctival injection - ENT ENT exam: mucous membranes dry - Neck Neck exam: Present: normal inspection, full ROM. Absent: tenderness, meningismus - Chest Chest inspection: Present: normal inspection, symmetric chest wall rise. Absent : tenderness, rash - Respiratory Respiratory exam: Present: other (Decreased breath sounds bilaterally). Absent : wheezes, stridor - Cardiovascular Cardiovascular exam: Present: normal rhythm, tachycardia, normal heart sounds - Abdominal Exam Abdominal exam: Present: tenderness (Diffuse tenderness to deep palpation), distention, ascites. Absent: guarding, rebound, rigidity - Extremities Exam Extremities exam: Present: normal inspection, full ROM. Absent: tenderness - Back Exam Back exam: Absent: CVA tenderness (R), CVA tenderness (L) - Neurological Exam Neurological exam: Present: alert, oriented X3 - Psychiatric Psychiatric exam: Present: anxious - Skin Skin exam: Present: diaphoresis Course Course Narrative: 32-year-old male with complicated medical history presenting for nausea and vomiting. Patient has also noticed abdominal distention. Patient has history of CHF with ejection fraction 10-15%. Patient states he is supposed be wearing a LifeVest but does not fit due to his abdominal distention. On exam patient is diaphoretic and hypotensive with systolic in the 70s to 80s. He is also tachycardic in the 120s. Physical exam shows abdominal distention and diffuse tenderness to deep palpation. Coarse breath sounds. We will provide the patient with Zofran for his nausea at this time. We will also perform laboratory analysis including CBC, CMP, lipase, PT INR due to patient's warfarin use along with EKG. We will also perform a CT of the abdomen and pelvis. Patient is alert and oriented 3 in room. Family members at bedside. Disposition will be admission versus transfer. Awaiting laboratory and imaging analysis. - Reevaluation(s) Reevaluation #1: Patient's laboratory analysis shows supratherapeutic INR, elevated troponin, acute kidney injury. Patient shows no signs of active bleeding at this time therefore no intervention for the supratherapeutic INR will be completed. Patient given 500 mL fluid bolus which did increase his systolic blood pressure to the 80s. Decision was made at another 500 mL fluid bolus which elevated his blood pressure to mid 90s. Patient is warm and well Perfused. EKG unchanged from previous. His CT of the abdomen and pelvis does show ascites. Patient's vomiting moderately controlled with Zofran. At this time we will plan to admit the patient. I spoke with the hospitalist on-call doctor is being who is concerned about the patient's blood pressure and would like us to consult cardiology. I consulted cardiology and spoke with Dr. Pierre. He agrees with the resuscitation plan that we have completed. He denies any other intervention needed at this time. He is aware of the case. At this time Dr. Solis accepts the patient to the ICU for further management. Vital Signs Temperature 97.6 F 11/22/17 13:50 Pulse Rate 110 11/22/17 13:50 Respiratory Rate 18 11/22/17 13:50 Blood Pressure 85/63 11/22/17 13:50 O2 Sat by Pulse Oximetry 99 11/22/17 13:50 Temperature 96.6 F L 11/22/17 18:41 Pulse Rate 101 11/22/17 18:41 Respiratory Rate 16 11/22/17 18:41 Blood Pressure 90/50 11/22/17 18:41 O2 Sat by Pulse Oximetry 100 11/22/17 18:41 Oxygen Delivery Oxygen Delivery Nasal Cannula Medical Decision Making - Lab Data Result diagrams: 11/22/17 14:09 11/22/17 14:09 Lab Results 11/22/17 11/22/17 11/22/17 Range/Units 14:09 14:09 14:09 WBC 11.0 (4.3-11.1) K/mcL RBC 5.15 (4.19-5.50) M/mcL Hgb 15.7 (12.9-16.9) g/dL Hct 47.9 (37.5-50.1) % MCV 93.0 (83.0-100.0) fL MCH 30.5 (28.0-33.3) pg MCHC 32.8 (31.6-35.5) g/dL RDW 14.5 (11.5-14.5) % Plt Count 280 (140-400) K/mcL MPV 11.0 (9.4-12.4) fL Immature Gran % 0.5 (0-4) % Seg Neutrophils % 59.5 % Lymphocytes % 31.5 % Monocytes % 7.7 % Eosinophils % 0.3 % Basophils % 0.5 % Neutrophils # 6.5 (1.6-8.9) K/mcL Lymphocytes # 3.5 (0.6-4.6) K/mcL Monocytes # 0.9 (0.0-1.3) K/mcL Eosinophils # 0.0 (0.0-0.6) K/mcL Basophils # 0.1 (0.0-0.2) K/mcL PT (9.4-12.1) Seconds INR Sodium 131 L (136-145) mEq/L Potassium 4.7 (3.5-5.1) mEq/L Chloride 100 (98-107) mEq/L Carbon Dioxide 22 L (23-29) mEq/L BUN 36 H (6-20) mg/dL Creatinine 1.46 H (0.70-1.30) mg/dL Est GFR ( Amer) > 60 (> 60) Est GFR (Non-Af Amer) 55 L (> 60) BUN/Creatinine Ratio 25 (6-26) Glucose 130 H (70-105) mg/dL Calculated Osmolality 282 (280-300) Calcium 9.5 (8.6-10.3) mg/dL Total Bilirubin 2.1 H (0.3-1.0) mg/dL Direct Bilirubin 0.7 H (0.0-0.2) mg/dL Indirect Bilirubin 1.4 H (0.0-1.2) mg/dL AST 114 H (13-39) Units/L ALT 154 H (7-52) Units/L Alkaline Phosphatase 49 (34-104) Units/L Troponin I 0.05 H* (< 0.04) ng/mL B-Natriuretic Peptide 2360 H (Less than 100) pg/mL Serum Total Protein 6.2 L (6.4-8.9) g/dL Albumin 4.0 (3.5-5.7) g/dL Globulin 2.2 L (2.4-3.5) g/dL Albumin/Globulin Ratio 1.8 (1.1-2.2) Lipase 6 L (11-82) Units/L 08/17/18 Range/Units 14:09 WBC (4.3-11.1) K/mcL RBC (4.19-5.50) M/mcL Hgb (12.9-16.9) g/dL Hct (37.5-50.1) % MCV (83.0-100.0) fL MCH (28.0-33.3) pg MCHC (31.6-35.5) g/dL RDW (11.5-14.5) % Plt Count (140-400) K/mcL MPV (9.4-12.4) fL Immature Gran % (0-4) % Seg Neutrophils % % Lymphocytes % % Monocytes % % Eosinophils % % Basophils % % Neutrophils # (1.6-8.9) K/mcL Lymphocytes # (0.6-4.6) K/mcL Monocytes # (0.0-1.3) K/mcL Eosinophils # (0.0-0.6) K/mcL Basophils # (0.0-0.2) K/mcL PT 64.1 H* (9.4-12.1) Seconds INR 5.7 H* Sodium (136-145) mEq/L Potassium (3.5-5.1) mEq/L Chloride (98-107) mEq/L Carbon Dioxide (23-29) mEq/L BUN (6-20) mg/dL Creatinine (0.70-1.30) mg/dL Est GFR ( Amer) (> 60) Est GFR (Non-Af Amer) (> 60) BUN/Creatinine Ratio (6-26) Glucose (70-105) mg/dL Calculated Osmolality (280-300) Calcium (8.6-10.3) mg/dL Total Bilirubin (0.3-1.0) mg/dL Direct Bilirubin (0.0-0.2) mg/dL Indirect Bilirubin (0.0-1.2) mg/dL AST (13-39) Units/L ALT (7-52) Units/L Alkaline Phosphatase (34-104) Units/L Troponin I (< 0.04) ng/mL B-Natriuretic Peptide (Less than 100) pg/mL Serum Total Protein (6.4-8.9) g/dL Albumin (3.5-5.7) g/dL Globulin (2.4-3.5) g/dL Albumin/Globulin Ratio (1.1-2.2) Lipase (11-82) Units/L - EKG Data EKG #1 EKG attestation: Yes I reviewed and interpreted this EKG. EKG results narrative: Sinus tachycardia. On September 08 bpm. Left atrial enlargement. LA interval 159, QRS 107, QTC 501. Poor R-wave progression. ST segment elevation noted in V3 but no other contiguous leads. T-wave inversion noted in V4, V5, V6. Compared to previous EKG completed no significant changes noted. Critical Care Time Critical Care Time: Yes Total Critical Care Time: 35 Attestation: Acute hypotension Attestation Statement - Attestation Attestation: Dr. Alvarenga note: Patient was seen in conjunction with resident Dr. Antionette Reyes. Please see her charting for complete documentation. I spent [id number] time with the patient and agree with patient's treatment and disposition. Labs/ Ct imaging reviewed; n/v and abd pain x 3-4 days; pt doubled his Lasix about "2 wks ago" as well; had days of chest pain a couple of months ago and presented in a very delayed fashion to the ER where he was found to have an [place] with an already reduced EF; BP low and HR elevated on arrival , much improved prior to admission ; cardiology consulted @ request of hostpitalist and consult was placed, discussion was had;
[2017-11-22 14:30] LABS: Basophils # 0.1 K/mcL (0.0-0.2); Basophils % 0.5 %; Eosinophils % 0.3 %; Hematocrit 47.9 % (37.5-50.1); Hemoglobin 15.7 g/dL (12.9-16.9); Immature Granulocytes % 0.5 % (0-4); Lymphocytes # 3.5 K/mcL (0.6-4.6); Lymphocytes % 31.5 %; Mean Corpuscular HGB Conc 32.8 g/dL (31.6-35.5); Mean Corpuscular Hemoglobin 30.5 pg (28.0-33.3); Monocytes # 0.9 K/mcL (0.0-1.3); Monocytes % 7.7 %; Neutrophils # 6.5 K/mcL (1.6-8.9); Platelet Count 280 K/mcL (140-400); Red Blood Count 5.15 M/mcL (4.19-5.50); Red Cell Distribution Width 14.5 % (11.5-14.5); Segmented Neutrophils % 59.5 %
[2017-11-22] MEDS ORDERED: 0.9 % Sodium Chloride 500 ML IVC ONE ×2 (14:34→16:34)
[2017-11-22] MEDS ORDERED: 0.9 % Sodium Chloride 500 ML ONE (14:35)
[2017-11-22 14:47] LABS: INR 5.7; Prothrombin Time 64.1 Seconds (9.4-12.1)
[2017-11-22 14:55] LABS: Alanine Aminotransferase 154 Units/L (7-52); Albumin/Globulin Ratio 1.8 (1.1-2.2); Alkaline Phosphatase 49 Units/L (34-104); Aspartate Amino Transferase 114 Units/L (13-39); BUN/Creatinine Ratio 25 (6-26); Bilirubin,Direct 0.7 mg/dL (0.0-0.2); Bilirubin,Indirect 1.4 mg/dL (0.0-1.2); Bilirubin,Total 2.1 mg/dL (0.3-1.0); Blood Urea Nitrogen 36 mg/dL (6-20); Calcium 9.5 mg/dL (8.6-10.3); Carbon Dioxide 22 mEq/L (23-29); Chloride 100 mEq/L (98-107); Globulin 2.2 g/dL (2.4-3.5); Glucose 130 mg/dL (70-105); Lipase 6 Units/L (11-82); Osmolality,Calculated 282 (280-300); Potassium 4.7 mEq/L (3.5-5.1); Sodium 131 mEq/L (136-145); Total Protein 6.2 g/dL (6.4-8.9); eGFR For Non-African Americans 55 (> 60)
[2017-11-22 14:57] LABS: Troponin I 0.05 ng/mL (< 0.04)
[2017-11-22] MEDS ORDERED: Naloxone 0.4 MG/ML INJ IVP PRN (19:55)
[2017-11-22] MEDS ORDERED: *HR* OxyCODONE Immed Rel 5 MG TABLET PO PRN ×2 (19:59)
--- NOTE | 2017-11-22 20:11 | Internal Med History&Physical ---
Date of Encounter: 11/22/17 Time of Encounter: 21:30 Internal Medicine - H&P: HPI Chief complaint: Abdominal pain Plans for Post Hospital Care: Home History of present illness: Mr. Byrd is a 32 year old male with history of severe heart failure with reduced ejection fraction, myocardial infarction, pleural effusions, hemorrhagic CVA, LV thrombus who presented to the ED with shortness of breath and abdominal pain with some nausea and vomiting for approximately 3-4 days in duration. The patient states that he has been having some swelling in his legs for about a month and it is been gradually building up in his abdomen over the past couple of weeks as well. Apparently, especially over the past week he has noticed significant swelling in his abdomen with increased shortness of breath and cough. Nauseated with this cough, the patient has had some vomiting. He describes the vomiting to me as coughing so hard and so frequently that he ends up having a vomit response. In fact, he does not describe any nausea associated with this to me. He does describe this cough as somewhat productive. He has some abdominal pain associated with this which he describes as sharp in the epigastric region with radiation all throughout his abdomen. He says that this swelling and pain has been so severe that he has been unable to wear his LifeVest which she needs to wear due to his severe cardiomyopathy with ejection fraction 10-15% which is new. He denies any chest pain, palpitation. Admits to some loose stools which are sometimes watery. He does take Lasix, and apparently increased his dose to 40 mg twice a day about a month ago, however he does not feel that he is been making urine appropriately. He does admit to significant orthopnea, and PND. Significantly, the patient developed cardiomyopathy approximately 2 months ago for the first time. His recently admitted to [facility] on 09/17/17 for chest pain at which time he was found to have elevated troponins and EKG changes consistent STEMI. Echocardiogram at that time demonstrated LVEF of 15-20% as well as LV thrombus which was large. The patient had a left heart catheterization and was anticoagulated but no significant coronary artery disease was demonstrated. Later in that admission the patient had a hemorrhagic stroke in the frontal cortex and was transferred to [place] where he stayed for approximately another week. He was discharged on a LifeVest and has followed up with Dr. Monteiro in the time since. Prior to that admission, the patient apparently had no significant medical history. He says that in the time since he has been relatively consistent with his medications and diet. He does admit to sometimes eating more salt than he should, however he does say that he has fluid restricted appropriately he has not checked his INR in the past few days. Social History: The patient lives at home with his magnolia and his daughter. 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 He does still smoke, however he only smoked 1 cigarette today. He occasionally smokes marijuana, he did consume alcohol prior to his illnesses, however he no longer does. Family Hx: Mother has CHF, DM, COPD Surgical Hx: Noncontributory Past Med Surg Social Fam HX - Past Medical History Medical history: CHF, CVA, hypertension, myocardial infarction, other Additional medical history: allergies. collapsed lung Psychiatric history: no psych history - Past Surgical History Additional surgical history: collapsed lung/chest tube - Social History Smoking Status: Current every day smoker Packs per day: 04/11 Smokeless Tobacco Status: No Alcohol use: none Drug use: marijuana Internal Medicine - H&P: Meds Furosemide [Lasix] 40 mg PO DAILY 11/22/17 [History] Lisinopril [Zestril] 5 mg PO DAILY 11/22/17 [History] Metoprolol Succinate [Toprol Xl] 50 mg PO DAILY 11/22/17 [History] Pantoprazole Sodium [Protonix] 40 mg PO DAILY 11/22/17 [History] Potassium Chloride 10 meq PO BID 11/22/17 [History] Warfarin [Coumadin] 5 mg PO SUMOTUTHSA 11/22/17 [History] Warfarin [Coumadin] 7.5 mg PO WEFR 11/22/17 [History] 3 Allergy/AdvReac Type Severity Reaction Status Date / Time No Known Allergies Allergy Verified 11/22/17 17:10 All Systems PM: A 10-system review of systems was performed and is negative for pertinent findings except as documented above in the HPI. Review of systems: Constitutional: Denies fevers, chills, weight loss, generalized fatigue Head/Neck: Denies SMITH, neck stiffness EENT: Denies vision changes/blurriness, rhinorrhea, congestion, sore throat CVS: Admits to dyspnea on exertion, productive cough, orthopnea, PND Pulm: Admits to cough, sputum production GI: Admits to abdominal pain, distention, vomiting : Denies dysuria, increased frequency, urgency, hematuria Heme: Denies ease of bleeding or bruising MSK: Denies joint pain, limited ROM Skin: Denies rashes, ulcers, color changes Neuro: Denies SMITH, paresthesias, focal deficits, ataxia - Constitutional Vitals: Temp Pulse Resp BP Pulse Ox 96.6 F L 101 16 90/50 100 11/22/17 18:41 11/22/17 18:41 11/22/17 18:41 11/22/17 18:41 11/22/17 18:41 Exam: Gen: Vitals noted. No acute distress. HEENT: Normocephalic, atraumatic Neck: Supple. No adenopathy. Cardiac: RRR, no murmur, +S1/S2. Some JVD is noted Pulmonary: CTA bilaterally however mildly diminished in the right base Abdomen: There is abdominal distention with tenderness to palpation generalized throughout. Fluid wave is notable. Tympanic to percussion. There is no hepatojugular reflux Back: Nontender throughout. MSK: ROM intact, no joint swelling noted Extremities: 2-3+ bilateral lower extremity edema, nontender calf, no cyanosis or clubbing Neuro: moves all extremities, no focal deficits. A&Ox3 Psych: Patient has flat affect and appears anxious Internal Med - H&P Results - Labs CBC & Chem 7: 11/22/17 14:09 11/22/17 14:09 - Assessment and plan (1) Heart failure with reduced ejection fraction, NYHA class III Current Visit: Yes Status: Acute Assessment and plan: Acute decompensated heart failure with reduced ejection fraction, non-schemic in nature TTE 09/19/15 Shows LVEF 15-20%, Severe global reduction in LV systolic dysfunction The patient had LHC on last admission which demonstrated no significant coronary disease He was discharged on LifeVest but has been unable to wear due to increased abdominal girth CXR on this admission shows no acute process, although there is mild opacification in right costophrenic angle CT of the Abdomen/Pelvis demonstrates moderate to large amount of ascites, mmall right pleural effusion with some right basilar atelectasis. I suspect that his vomiting is secondary to repetitive cough, which is due to this exacerbation of heart failure The patient has baseline dyspnea, hypotension and edema, however there is PAT and transaminitis Labs show Serum creatinine 1.46, AST/ALT 114/154, BNP 2360 Home meds lopressor, lisinopril, lasix Plan -Continue home lopressor, lisinopril -Gentle diuresis, I suspect volume overload and ascites are major factor in this exacerbation. We will do Home lasix dose in IV formulation initially and monitor BP closely -Strict I/Os, daily weights -Cardiac diet, fluid restrict 1500mL -Cardiac and O2 Monitoring -Limited Echo for EF in AM -Cardiology consultation in AM (2) Hypotension Current Visit: Yes Status: Acute Assessment and plan: Hypotension, chronic Secondary to severe nonischemic cardiomyopathy with EF 15-20% Dr. Pierre was consulted from the ED and recommended no acute intervention He did recieve fluids in the ED, however I believe that the intraabdominal pressure related to ascites plays a role in this, and that gentle diuresis is important We will carefully monitor hemodynamic status as we do so Qualifiers: Hypotension type: other hypotension type Qualified Code(s): I95.89 - Other hypotension (3) Ascites Current Visit: Yes Status: Acute Assessment and plan: Moderate to large ascites demonstrated on CT abdomen Likely secondary to CHF and portal vascular congestion Additionally I think that this could be contributing to his dyspnea as it prevents him from deep inspiration I believe that the patient would benefit from paracentesis, however he is ultimately supratherapeutic on his INR at 5.7 I will monitor him this evening, provide a medication to make him comfortable Because of his history of LV thrombus, I will not provide the patient with vitamin K at this time Qualifiers: Ascites type: other type Qualified Code(s): R18.8 - Other ascites (4) Pleural effusion Current Visit: Yes Status: Acute Assessment and plan: Right-sided pleural effusion is small Patient does have pleural effusion which I suspect is likely associated with CHF I do not suspect that this is causing significant respiratory compromise at this time More so, I think that the patient's dyspnea is associated with abdominal distention and ascites Still, we will monitor this, and I will diurese the patient which could be helpful in this pleural effusion (5) Nausea and vomiting Current Visit: Yes Status: Acute Assessment and plan: Nausea and vomiting No evidence at this time of infectious etiology or intra-abdominal process Ascites and increased intra-abdominal pressure is likely the culprit Paracentesis will likely be very helpful for this patient, however it is contraindicated due to the patient's supratherapeutic INR I will provide the patient with IV Zofran as needed for nausea Qualifiers: Vomiting type: unspecified Vomiting Intractability: intractable Qualified Code(s): R11.2 - Nausea with vomiting, unspecified (6) PAT (acute kidney injury) Current Visit: Yes Status: Acute Assessment and plan: Mild PAT on presentation Serum creatinine 1.47, baseline 1.1 Patient received 500 mL normal saline in the ED I believe some of this could be due to cardiorenal syndrome versus prerenal azotemia I will monitor BMP especially as we will be gently diuresing the patient (7) Transaminitis Current Visit: Yes Status: Acute Assessment and plan: Patient presents with elevated liver enzymes, AST 114 ALT 115 T bilirubin 2.1 This is likely secondary to portal congestion in severe cardiomyopathy The patient's viral hepatitis serology is negative The patient denies any significant alcohol history We will continue to monitor at this time, consider liver ultrasound in a.m. if continues to worsen (8) Supratherapeutic INR Current Visit: Yes Status: Acute Assessment and plan: INR 5.7, on Coumadin Patient does have history of LV thrombus Although he will require a paracentesis on his stay, given history of LV thrombus I do not want to reverse the supratherapeutic INR The patient has no evidence of bleeding at this time I will hold his warfarin at this time Recheck in the morning (9) LV (left ventricular) mural thrombus Current Visit: No Status: Acute Assessment and plan: As above - Time Spent With Patient Total time spent is greater than 50% in coordination of care (as documented) at patient's floor/unit and/or counseling patient:
[2017-11-22] MEDS ORDERED: Furosemide 20 MG/2 ML VIAL IVP ONE (20:41)
[2017-11-22 21:50] LABS: Hepatitis A Antibody IgM Nonreactive (Nonreactive); Hepatitis B Core IgM Nonreactive (Nonreactive); Hepatitis B Surface Antigen Nonreactive (Nonreactive); Hepatitis C Virus Antibody Nonreactive (Nonreactive)
[2017-11-22 22:05] LABS: Bilirubin,Urine Negative (Negative); Blood,Urine Negative (Negative); Clarity,Urine Cloudy (Clear); Color,Urine Dark Yellow (Yellow); Glucose,Urine (UA) Normal (Normal); Ketones,Urine Negative (Negative); Leukocyte Esterase,Urine Negative (Negative); Nitrite,Urine Negative (Negative); PH,Urine 5.5 pH Units (5.0-8.0); Protein,Urine 100 mg/dL (Neg-Trace); Specific Gravity,Urine 1.011 (1.010-1.025); Urobilinogen,Urine Normal (Normal)
[2017-11-22 22:07] LABS: Bacteria,Urine None Seen per hpf (None-Few); RBC,Urine 0-3 per hpf (0-3); Squamous Epithelial Cell,Urine Many per lpf (None-Few)
[2017-11-22 22:15] LABS: Hyaline Casts,Urine Many per lpf (None-Few)
[2017-11-22 22:16] LABS: Sperm,Urine Present
[2017-11-22] MEDS: Ondansetron 4 MG/2 ML VIAL IVP PRN (22:23)
[2017-11-22 22:28] LABS: Amphetamine Screen,Urine Positive ng/mL (Cutoff=1000); Barbiturate Screen,Urine Negative ng/mL (Cutoff=200); Benzodiazepines Screen,Urine Positive ng/mL (Cutoff=200); Cannabinoid Screen,Urine Positive ng/mL (Cutoff = 50); Cocaine Screen,Urine Negative ng/mL (Cutoff= 300); Opiate Screen,Urine Negative ng/mL (Cutoff=300); Phencyclidine Screen,Urine Negative ng/mL (Cutoff=25)
[2017-11-23] MEDS: Ondansetron 4 MG/2 ML VIAL IVP PRN (03:39)
[2017-11-23] MEDS: *HR* OxyCODONE Immed Rel 5 MG TABLET PO PRN ×2 (03:44→10:17)
[2017-11-23] MEDS ORDERED: Benzonatate 100 MG CAPSULE PO PRN (05:56)
[2017-11-23] MEDS ORDERED: *HR* Promethazine 25 MG/ML VIAL IVP ONE (06:00)
[2017-11-23] MEDS: Pantoprazole 40 MG VIAL IVP SCH ×2 (06:14→17:10)
[2017-11-23 06:27] LABS: Basophils # 0.1 K/mcL (0.0-0.2); Basophils % 0.5 %; Eosinophils % 0.3 %; Hemoglobin 16.9 g/dL (12.9-16.9); Immature Granulocytes % 0.7 % (0-4); Lymphocytes # 4.2 K/mcL (0.6-4.6); Lymphocytes % 31.6 %; Mean Corpuscular HGB Conc 32.5 g/dL (31.6-35.5); Mean Corpuscular Hemoglobin 30.7 pg (28.0-33.3); Mean Corpuscular Volume 94.5 fL (83.0-100.0); Mean Platelet Volume 11.2 fL (9.4-12.4); Monocytes % 7.7 %; Neutrophils # 7.9 K/mcL (1.6-8.9); Nucleated Red Blood Cells 0.2 /100 WBC (0); Platelet Count 228 K/mcL (140-400); Red Cell Distribution Width 14.6 % (11.5-14.5); Segmented Neutrophils % 59.2 %
[2017-11-23 06:35] LABS: INR 6.6; Prothrombin Time 74.8 Seconds (9.4-12.1)
[2017-11-23 06:54] LABS: Alanine Aminotransferase > 500 Units/L (7-52); Albumin 4.1 g/dL (3.5-5.7); Albumin/Globulin Ratio 1.6 (1.1-2.2); Alkaline Phosphatase 47 Units/L (34-104); Aspartate Amino Transferase 571 Units/L (13-39); BUN/Creatinine Ratio 22 (6-26); Bilirubin,Total 3.3 mg/dL (0.3-1.0); Blood Urea Nitrogen 43 mg/dL (6-20); Calcium 9.1 mg/dL (8.6-10.3); Carbon Dioxide 18 mEq/L (23-29); Chloride 98 mEq/L (98-107); Globulin 2.5 g/dL (2.4-3.5); Glucose 122 mg/dL (70-105); Magnesium 2.3 mg/dL (1.6-2.6); Osmolality,Calculated 282 (280-300); Potassium 5.4 mEq/L (3.5-5.1); Sodium 130 mEq/L (136-145); Total Protein 6.6 g/dL (6.4-8.9); eGFR For Non-African Americans 39 (> 60)
[2017-11-23] MEDS ORDERED: Perflutren Lipid Microsphere 1.3 ML in 0.9 % Sodium Chloride 8.7 ML IVP ONE (08:56)
[2017-11-23] MEDS ORDERED: Metoprolol XL (24 HR) Succ 50 MG TAB.ER.24H PO SCH (09:00)
--- NOTE | 2017-11-23 10:01 | Internal Med Progress Note ---
Hospitalist Progress Note - Encounter Date of Encounter: 11/23/17 - Exam Vitals: Temp Pulse Resp BP Pulse Ox 96.6 F L 105 25 78/58 96 11/23/17 07:45 11/23/17 09:00 11/23/17 09:00 11/23/17 09:00 11/23/17 09:00 - Assessment and Plan (1) Hypotension Current Visit: Yes Status: Acute (2) Heart failure with reduced ejection fraction, NYHA class IV Current Visit: Yes Status: Acute (3) Elevated troponin Current Visit: Yes Status: Acute (4) Pleural effusion Current Visit: Yes Status: Acute (5) Acute renal failure (ARF) Current Visit: Yes Status: Acute (6) Ascites Current Visit: Yes Status: Acute (7) Transaminitis Current Visit: Yes Status: Acute (8) Supratherapeutic INR Current Visit: Yes Status: Acute (9) LV (left ventricular) mural thrombus Current Visit: No Status: Acute (10) Non-ischemic cardiomyopathy Current Visit: No Status: Acute - Time Spent with Patient Total time spent is greater than 50% in coordination of care (as documented) at patient's floor/unit and/or counseling patient: Internal Medicine: Result - Labs CBC & Chem 7: 11/23/17 06:07 11/23/17 06:07 Labs: Short CBC 11/23/17 Range/Units 06:07 WBC 13.3 H (4.3-11.1) K/mcL Hgb 16.9 (12.9-16.9) g/dL Hct 52.0 H (37.5-50.1) % Plt Count 228 (140-400) K/mcL Neutrophils # 7.9 (1.6-8.9) K/mcL BMP 11/23/17 06:07 Sodium 130 L Potassium 5.4 H Chloride 98 Carbon Dioxide 18 L BUN 43 H Creatinine 1.96 H Glucose 122 H Calcium 9.1 Liver Function 11/23/17 Range/Units 06:07 Total Bilirubin 3.3 H (0.3-1.0) mg/dL AST 571 H (13-39) Units/L ALT > 500 H (7-52) Units/L Alkaline Phosphatase 47 (34-104) Units/L Albumin 4.1 (3.5-5.7) g/dL Urine 11/22/17 Range/Units 19:35 Urine Color Dark Yellow (Yellow) Urine Clarity Cloudy A (Clear) Urine pH 5.5 (5.0-8.0) pH Units Ur Specific [place] 1.011 (1.010-1.025) Urine Protein 100 H (Neg-Trace) mg/dL Urine Glucose (UA) Normal (Normal) mg/dL - ABG Interpretation ABG results: PT/INR, D-dimer PT 74.8 Seconds (9.4-12.1) H* 11/23/17 06:07 - Impressions Impressions Echocardiogram Limited Views 11/23/17 19:57 Impressions: LVEF 10-15%. Severely dilated left ventricle. Very severe global left ventricular systolic dysfunction. There is no LV thrombus. Right ventricle not specifically assessed. Noted to be dilated and hypokinetic. Recommend cardiology evaluation. Left Ventricular Wall Motion: Rest Echo Findings The apex, apical inferior, mid inferior, basal inferior, apical anterior, mid anterior, basal anterior, apical septal, mid inferior septal, basal inferior septal, apical lateral, mid anterior lateral, basal anterior lateral, mid anterior septal, mid inferior lateral, basal anterior septal and basal inferior lateral alvarez were hypokinetic. Findings: Study Quality * Technically adequate exam. ECG Findings * Normal sinus rhythm. Left Ventricle * LVEF 10-15%. * Severely dilated left ventricle. * Severe global left ventricular systolic dysfunction. * There is no LV thrombus. Right Ventricle * Right ventricle not specifically assessed. Noted to be dilated and hypokinetic. Left Atrium * Severely dilated left atrium. Right Atrium * Severely dilated right atrium. Pericardium * The pericardium appears normal. Aorta * Normally sized aortic root. Consult Discharge Plan - Plan Referrals: Shania Huerta, SCHOOL BUS INSPECTOR [Primary Care Provider] - (1) Hypotension Qualifiers: Hypotension type: other hypotension type Qualified Code(s): I95.89 - Other hypotension (6) Ascites Qualifiers: Ascites type: other type Qualified Code(s): R18.8 - Other ascites
--- NOTE | 2017-11-23 11:02 | Cardiology Consult Note ---
Date of Encounter: 11/23/17 Time of Encounter: 15:00 Assessment and Plan (1) Dyspnea Current Visit: No Status: Acute Acute on chronic dyspnea secondary to acute on chronic systolic heart failure, not responding well to diuresis, no urine output last 8 hours. Qualifiers: Dyspnea type: orthopnea Qualified Code(s): R06.01 - Orthopnea (2) CHF (congestive heart failure) Current Visit: No Status: Acute Acute on chronic systolic heart failure due to non-ischemic cardiomyopathy, no urine output last 8 hours, adequate blood pressure, mildly tachycardic, does not appear to require inotropes at present, continue to monitor. Pt was prescribed optimal medical tx, not clear that he is taking his medications as directed. Discussed with nephrology, will see shortly, consult placed to ICU team due to multiple system failure. Qualifiers: Heart failure type: systolic Heart failure chronicity: acute Qualified Code(s): I50.21 - Acute systolic (congestive) heart failure (3) LV (left ventricular) mural thrombus Current Visit: No Status: Chronic On systemic anticoagulation with warfarin, for large LV thrombus, may reverse anticoagulation for dialysis catheter placement if required. (4) Tachycardia Current Visit: No Status: Chronic Resting tach driven by hemodynamic requirements, will most likely improve as able to correct electrolyte abnormalites. (5) Tobacco abuse Current Visit: No Status: Chronic Continues to smoke against medical advice, (6) Amphetamine abuse, episodic Current Visit: Yes Status: Acute Testing positive for amphetamines, reports his roommate, his nephew, is using meth in his home and he is exposed enviromentally. Reviewed how dangerous use of meth is to his allready failing myocardium. Discussion w patient/family: The assessment and plan as outlined above was discussed with the patient and/or family members who expressed understanding and agreement. All questions were answered. Thank you for involving us in the care of your patient. Please call with any questions. History of Present Illness Consult date: 11/23/17 Requesting physician: Khang Rosen Consult reason: shortness of breath, Chief complaint: Shortness of breath History of present illness: Mr. Byrd is a 32 year old male who presented to ER with complaints of increasing lower extremity edema and shortness of breath over last two weeks. He reports he has also developed frequent coughing, unable to lie flat last weeks, has conversational dyspnea and abdominal swelling. He notes is not wearing LifeVest because it no longer fits him, He denies chest pain or palpitations. He reports is compliant with medications. He in not compliant with lifestyle changes including fluid restrictions, sodium restrictions, and avoidance of tobacco, he is testing positive for amphetamines and benzodiazepines. He has a known non-ischemic cardiomyopathy, last EF 10 to 15% with large LV thrombus, wearing LifeVest at bridge to [facility]. Past Med Surg Social Fam HX - Past Medical History Medical history: cardiomyopathy, CHF, CVA, hypertension, other Additional medical history: allergies. collapsed lung Psychiatric history: no psych history - Past Surgical History Additional surgical history: collapsed lung/chest tube - Social History Smoking Status: Current every day smoker Packs per day: 04/11 Smokeless Tobacco Status: No Alcohol use: none Drug use: marijuana Medications and Allergies Furosemide [Lasix] 40 mg PO DAILY 11/22/17 [History] Lisinopril [Zestril] 5 mg PO DAILY 11/22/17 [History] Metoprolol Succinate [Toprol Xl] 50 mg PO DAILY 11/22/17 [History] Pantoprazole Sodium [Protonix] 40 mg PO DAILY 11/22/17 [History] Potassium Chloride 10 meq PO BID 11/22/17 [History] Warfarin [Coumadin] 5 mg PO SUMOTUTHSA 11/22/17 [History] Warfarin [Coumadin] 7.5 mg PO WEFR 11/22/17 [History] 3 Allergy/AdvReac Type Severity Reaction Status Date / Time No Known Allergies Allergy Verified 11/22/17 17:10 All Systems Review: The remainder of the systems were reviewed and are negative - Constitutional Constitutional: fatigue, lethargy, weakness, weight gain - Cardiovascular Cardiovascular: dyspnea at rest, dyspnea on exertion, leg edema, lightheadedness , orthopnea, paroxysmal nocturnal dyspnea - Respiratory Respiratory: cough, dyspnea - Gastrointestinal Gastrointestinal: abdominal pain - Musculoskeletal Musculoskeletal: arthralgias Physical Examination Vital Signs, Last 4 Hours Temp Pulse Resp BP Pulse Ox 11/23/17 10:00 98 18 129/111 11/23/17 09:00 105 25 78/58 96 11/23/17 08:00 101 35 108/49 97 11/23/17 07:45 96.6 F L 11/23/17 07:00 102 30 99/62 94 General: Conversant, No Apparent Distress HEENT: Atraumatic, Normocephaly, Mucus Membranes Moist Neck: Normal carotid pulses Cardiac: Reg Rate and Rhythm, Normal S1 and S2, No Murmur Lungs: Other (decreased breath sounds, crackles both bases. ) Neuro: Alert and responsive Abdomen: Soft, Non-Tender (mildly distended) Skin: No rashes noted on visualized skin Musculoskeletal: No Chest Wall Tenderness Extremities: No Edema (Trace bilat pretibial edema) Results 11/23/17 06:07 11/23/17 11:59 Lab Results 11/23/17 11/23/17 11/23/17 06:07 06:07 06:07 WBC 13.3 H Hgb 16.9 Hct 52.0 H Plt Count 228 INR 6.6 H* Sodium 130 L Potassium 5.4 H Chloride 98 Carbon Dioxide 18 L BUN 43 H Creatinine 1.96 H Glucose 122 H Calcium 9.1 Magnesium 2.3 Total Bilirubin 3.3 H AST 571 H ALT > 500 H Alkaline Phosphatase 47 B-Natriuretic Peptide 11/23/17 06:07 WBC Hgb Hct Plt Count INR Sodium Potassium Chloride Carbon Dioxide BUN Creatinine Glucose Calcium Magnesium Total Bilirubin AST ALT Alkaline Phosphatase B-Natriuretic Peptide 2095 H Consult Discharge Plan - Plan Referrals: Shania Huerta, HUMIDIFIER ATTENDANT [Primary Care Provider] -
[2017-11-23 12:56] LABS: Potassium 6.7 mEq/L (3.5-5.1)
[2017-11-23] MEDS ORDERED: Sodium Bicarbonate 75 MEQ in D5% in Water 1,000 ML IVC SCH (14:45)
[2017-11-23] MEDS ORDERED: Sodium Bicarbonate 150 MEQ in D5% in Water 1,000 ML IVC SCH (14:59)
--- NOTE | 2017-11-23 15:55 | Electrocardiograph Report ---
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
--- NOTE | 2017-11-23 16:39 | Nephrology Consult Note ---
Date of Encounter: 11/23/17 Time of Encounter: 14:30 Assessment and Plan (1) Hyperkalemia Current Visit: Yes Status: Acute Will dose with kayexalate 60grams immediately now Will give calcium gluconate 1gram in now Will start D5W with 3 amps bicarb at 30cc/hr to help bring potassium intracellular for now while we correct inr with FFP Will give 1 amp D50 with 10units regular insulin now Serial potassium checks while we await transfer to tertiary facility Critical care time spent approx. 45mins (2) PAT (acute kidney injury) Current Visit: Yes Status: Acute Elevated SCr with no UOP in the setting of heart failure suspecting hypoperfusion Will hold lisinopril and all nephrotoxins for now. 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 would not be able to provide unless anticoag reversed Given pending multi-organ failure, might be beneficial to transfer to a tertiary center for more aggressive management (3) CHF (congestive heart failure) Current Visit: No Status: Acute per fuel storage technician, needs aggressive cardiac optimization Qualifiers: Heart failure type: systolic Heart failure chronicity: acute Qualified Code(s): I50.21 - Acute systolic (congestive) heart failure History of Present Illness - Reason for Consult Consult date: 11/23/17 Acute Kidney Injury Requesting physician: Olaf Pierre - History of Present Illness 32 y o male with PMH of nonischemic cardiomyopathy EF 10-15% with known large LV thombus on anticoag admitted with SOB, abd pain, LE edema and N/V. Renal consulted today as potassium trending rapidly upward from 4.7 on admission to 5.4 and then 6.7 with no interventions yet. It appares pt takes potassium supplements at home and was resumed on them till this am hyperkalemia, now discontinued. Pt ena also taking lsiinopril as well. Also noted is continued hypotensive spell since admission with rising SCr from 1.46, GFR 55 to 1.96, GFR 39 this am along with rising liver enzymes as well. Inr noted at 6.6. Pt appears comfortable at present with no chest pain or SOB currently. No UOP documented in the past 8 hours per nurse Past Med Surg Social Fam HX - Past Medical History Medical history: cardiomyopathy, CHF, CVA, hypertension, other Additional medical history: allergies. collapsed lung Psychiatric history: no psych history - Past Surgical History Additional surgical history: collapsed lung/chest tube - Social History Smoking Status: Current every day smoker Packs per day: 1/ Smokeless Tobacco Status: No Alcohol use: none Drug use: marijuana Medications and Allergies Furosemide [Lasix] 40 mg PO DAILY 11/22/17 [History] Lisinopril [Zestril] 5 mg PO DAILY 11/22/17 [History] Metoprolol Succinate [Toprol Xl] 50 mg PO DAILY 11/22/17 [History] Pantoprazole Sodium [Protonix] 40 mg PO DAILY 11/22/17 [History] Potassium Chloride 10 meq PO BID 11/22/17 [History] Warfarin [Coumadin] 5 mg PO SUMOTUTHSA 11/22/17 [History] Warfarin [Coumadin] 7.5 mg PO WEFR 11/22/17 [History] 3 Allergy/AdvReac Type Severity Reaction Status Date / Time No Known Allergies Allergy Verified 11/22/17 17:10 Review of Systems All Systems: reviewed and no additional remarkable complaints except as stated ( as noted in HPI, 10 systems reviewed) Exam - Vital Signs Vital signs: Initial Vital Signs Temp Pulse Resp BP Pulse Ox 97.6 F 110 18 85/63 99 11/22/17 13:50 11/22/17 13:50 11/22/17 13:50 11/22/17 13:50 11/22/17 13:50 Vital Signs - Last 8 Hours Temp Pulse Resp BP Pulse Ox 11/23/17 15:59 97.7 F 11/23/17 15:00 103 23 98/64 94 11/23/17 14:00 101 23 101/72 95 11/23/17 13:00 101 24 107/33 96 11/23/17 12:17 97.3 F L 11/23/17 12:00 100 23 97/67 97 11/23/17 11:00 98 22 99/64 11/23/17 10:00 98 18 129/111 11/23/17 09:00 105 25 78/58 96 Intake and Output 11/23/17 11/23/17 11/23/17 07:59 15:59 23:59 Intake Total 252 / 252 Output Total 250 / 250 0 / 0 Balance -250 / -250 252 / 252 Intake: IV Fluids 2 / 2 Definity 1.3 ML In Normal 2 / 2 Saline Flush 8.7 ML @ 1200 mls/ hr IVP ONCE ONE Rx#:[id number] Oral 250 / 250 Output: Urine 250 / 250 0 / 0 Catheter 0 / 0 - General Appearance General appearance: well-developed, well-nourished EENT: ATNC, mucous membranes moist Neck: no JVD, supple Results - Lab Results 11/23/17 06:07 11/23/17 11:59 Most recent lab results Calcium 9.1 mg/dL (8.6-10.3) 11/23/17 06:07 Magnesium 2.3 mg/dL (1.6-2.6) 11/23/17 06:07 Consult Discharge Plan - Plan Referrals: Shania Huerta, SHUTTLE DRIVER [Primary Care Provider] -
[2017-11-23] MEDS ORDERED: 0.9 % Sodium Chloride 250 ML ONE (16:46)
[2017-11-23 17:32] LABS: ABG Base Excess -6 mEq/L (-2 to 3); ABG HCO3 18 mEq/L (21-27); ABG Oxygen Saturation 77 % (95-98); ABG PCO2 32 mmHg (35-45); ABG PH 7.36 pH Units (7.32-7.45); ABG PO2 42 mmHg (85-104); ABG TCO2 19 mEq/L (20-26)
--- NOTE | 2017-11-23 18:14 | Discharge Summary ---
Orders not resulted at time of discharge: Pending orders 11/23/17 15:08 PLASMA [BBK] Stat Type and Screen [BBK] Stat Date of Encounter: 11/23/17 Time of Encounter: 11:00 - Discharge Diagnosis (1) Hypotension Priority: Primary Status: Acute Qualifiers: Hypotension type: other hypotension type Qualified Code(s): I95.89 - Other hypotension (2) Heart failure with reduced ejection fraction, NYHA class IV Priority: Primary Status: Acute (3) Elevated troponin Priority: Secondary Status: Acute (4) Pleural effusion Priority: Secondary Status: Acute (5) Acute renal failure (ARF) Priority: Primary Status: Acute Qualifiers: Acute renal failure type: unspecified Qualified Code(s): N17.9 - Acute kidney failure, unspecified (6) Ascites Priority: Secondary Status: Acute Qualifiers: Ascites type: other type Qualified Code(s): R18.8 - Other ascites (7) Transaminitis Priority: Primary Status: Acute (8) Supratherapeutic INR Priority: Primary Status: Acute (9) LV (left ventricular) mural thrombus Priority: Secondary Status: Chronic (10) Non-ischemic cardiomyopathy Priority: Secondary Status: Acute Hospital course: Patient is a 32-year-old male with past medical history significant for severe heart failure with reduced ejection fraction, myocardial infarction, pleural effusions, hemorrhagic CVA and LV thrombus who presented to the ER on 11/22/17 due to shortness of breath and abdominal pain. Patient reported a 3-4 day history of abdominal discomfort in addition to bilateral lower extremity swelling which has occurred for approximately last month. He also reports of abdominal distention as well. During patients overnight hospital stay, echocardiogram was done and patient found to have LVEF of 10-15% with severely dilated left ventricle and very severe global left ventricular systolic dysfunction. Patient was also found to be hypotensive with MAP hovering around 65. In addition, patient was found to have acute liver failure with elevated ALT of greater than 500 and AST of 571. Patient was also found to have supratherapeutic INR of 6.6 in addition to acute renal failure with hyperkalemia. Recommendations for patient to be transferred to tertiary care center due to multiple organ failure. [facility] [place] was contacted and Dr. Tavares will accept the patient to [facility] ICU. - Time Spent with Patient Total time spent providing and/or coordinating discharge services: Less than 30 minutes - Discharge Medications Home Medications: Furosemide [Lasix] 40 mg PO DAILY 11/22/17 [History] Lisinopril [Zestril] 5 mg PO DAILY 11/22/17 [History] Metoprolol Succinate [Toprol Xl] 50 mg PO DAILY 11/22/17 [History] Pantoprazole Sodium [Protonix] 40 mg PO DAILY 11/22/17 [History] Potassium Chloride 10 meq PO BID 11/22/17 [History] Warfarin [Coumadin] 5 mg PO SUMOTUTHSA 11/22/17 [History] Warfarin [Coumadin] 7.5 mg PO WEFR 11/22/17 [History] Allergies/Adverse Reactions: 3 Allergy/AdvReac Type Severity Reaction Status Date / Time No Known Allergies Allergy Verified 11/22/17 17:10 Date of admission: 11/22/17 18:12 Primary care physician: Shania Huerta CNP Consults: 11/23/17 14:16 Consult to Pulmonology [CONS] Stat Consulting Provider: Pulm Crit Care & Sleep Carlie Reason for Consult: critical care needs Time Notified: 14:17 Call Completed: Yes 11/23/17 14:18 Consult to Nephrology [CONS] Stat Consulting Provider: Kidney Carlie/FABIO/MARY/MELISSA Reason for Consult: Need for HD, potassium 6.7, Anueric, Call Completed: No 11/23/17 14:25 Consult to Critical Care [CONS] Routine Consulting Provider: Pulm Crit Care & Sleep Carlie Reason for Consult: hyperkalemia, anuria Time Notified: 14:15 Call Completed: No - Constitutional Vitals: Temp Pulse Resp BP Pulse Ox 97.5 F L 99 12 106/95 94 11/23/17 16:45 11/23/17 16:45 11/23/17 16:45 11/23/17 16:45 11/23/17 15:00 General appearance: Present: A&O X 3, no acute distress - Respiratory Respiratory exam: Present: CTAB. Absent: accessory muscle use, rales, rhonchi, wheezes - Cardiovascular Cardiovascular exam: Present: RRR, +S1, +S2. Absent: diastolic murmur, gallop, rubs, systolic murmur - GI/Abdominal GI/Abdominal exam: Present: distended - Patient Status Disposition: Transfer Other Condition: Fair - Discharge Instructions Follow Up With: Shania Huerta CNP [Primary Care Provider] -
[2017-11-23 18:45] VITALS: BP 106/86
--- NOTE | 2017-11-25 14:44 | Electrocardiograph Report ---
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
== END 2017-11-23 18:45 | disposition other institution (70) | DRG 194 ==
LOC: EMEROOARM 13:43 → ICNU 18:12 → SUATTDRO 18:12 → ICNU 18:35
PROVIDERS: ADMIT Internal Medicine; ATTEND Hospitalist

== ENCOUNTER 2017-12-10 19:31 | Observation (INO) ==
--- NOTE | 2017-12-10 19:52 | Emergency Department Note ---
Disposition Clinical Impression: History of CHF (congestive heart failure), Elevated troponin, Elevated brain natriuretic peptide (BNP) level Dyspnea Qualifiers: Dyspnea type: unspecified Qualified Code(s): R06.00 - Dyspnea, unspecified Disposition: Admitted As Inpatient Condition: Fair Time of Disposition: 00:09 SOB HPI - General Chief Complaint: ED Shortness of Breath/Dyspnea Stated Complaint: sent by Dr. 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 He presents today due to lower extremity edema, edema of the abdomen, shortness of breath. Denies any overt chest discomfort. He states that he takes Lasix 80 mg daily. He has noticed an increase in weight gain over the past week of approximately 10 pounds. Denies any other fevers, nausea, vomiting, diarrhea, abdominal pain. He was sent by his primary care physician here for further evaluation. He states that he follows with cardiology here at [place], Dr. Monteiro. Patient is on Coumadin and states that his recent INR checked within past 24 hours was 2.2. - Related Data Home Medications Medication Instructions Recorded Confirmed Furosemide [Lasix] 40 mg PO DAILY 11/22/17 12/10/17 Lisinopril [Zestril] 5 mg PO DAILY 11/22/17 12/10/17 Metoprolol Succinate [Toprol Xl] 50 mg PO DAILY 11/22/17 11/22/17 Pantoprazole Sodium [Protonix] 40 mg PO DAILY 11/22/17 12/10/17 Warfarin [Coumadin] 5 mg PO SUMOTUTHSA 11/22/17 12/10/17 Albuterol Sulfate [Ventolin Hfa] 8 gm IH 12/10/17 12/10/17 Carvedilol [Coreg] 6.25 mg PO BIDWM 12/10/17 12/10/17 Allergies Allergy/AdvReac Type Severity Reaction Status Date / Time No Known Allergies Allergy Verified 11/22/17 17:10 All systems ED: reviewed and negative except as stated. Constitutional: Denies: fever Cardiovascular: Denies: chest pain Respiratory: Reports: dyspnea. Denies: cough, wheezes, sputum production Gastrointestinal: Reports: other (abd edema/distention). Denies: abdominal pain , nausea, vomiting, diarrhea Genitourinary: Denies: urgency, dysuria Integumentary: Denies: rash Neurological: Denies: headache, weakness, numbness Past Medical History - Past Medical History Attestation: Yes The following information was validated with the patient. Source: patient Medical history: Reports: cardiomyopathy, CHF, CVA, hypertension, myocardial infarction, other Psychiatric history: Reports: no psych history - Social History Smoking Status: Former smoker Smokeless Tobacco Status: No Alcohol use: Reports: none Drug use: Reports: marijuana Physical Exam - General General appearance: alert - Head Head exam: atraumatic, normocephalic, normal inspection - Eye Eye exam: Present: normal appearance, PERRL, EOMI - ENT ENT exam: normal exam, normal oropharynx, mucous membranes moist - Neck Neck exam: Present: normal inspection, full ROM, trachea midline - Chest Chest inspection: Present: normal inspection, symmetric chest wall rise - Respiratory Respiratory exam: Present: normal lung sounds bilaterally - Cardiovascular Cardiovascular exam: Present: normal rhythm, tachycardia, normal heart sounds - Abdominal Exam Abdominal exam: Present: soft, distention (Generalized abdominal edema and distention). Absent: tenderness, guarding, rebound, rigidity, Orozco's sign, Rovsing's sign, tenderness at McBurney's Point - Extremities Exam Extremities exam: Present: normal inspection, full ROM, pedal edema (bilateral LE, right worse than left), other (No erythema, no pain of posterior popliteal fossa or bilateral calves.). Absent: tenderness, calf tenderness - Neurological Exam Neurological exam: Present: alert, oriented X3 - Psychiatric Psychiatric exam: Present: normal affect, normal mood - Skin Skin exam: Present: warm, dry, intact, normal color Course Course Narrative: Patient was tachycardic on presentation. Otherwise, the rest of the vitals within normal limits. 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 With tachycardia and shortness of breath, there is concern for PE. Will order CT of the chest for further assessment. We will also order basic blood work, EKG, troponin level. Patient has significant edema bilateral lower extremities and abdomen. We will admit for diuresis after labs return. No active chest pain at this time. EKG on 12/2017 at 20:04. Sinus tachycardia. Rate 118. NE 158 QRS 101. QTc 464. Normal axis. No acute ST elevation or depression. There are T wave inversions in V5 and V6 that are present on old EKG. 23:59 BNP elevated in the 3000, highest that it has been in the past. Trop negative Chest CTA shows no evidence of any PE. There is some reflux of contrast into the IVC and hepatic veins concerning for right heart failure. Patient is given IV Lasix 40 mg here. We will admit the patient for further care at this time. Patient was accepted by Dr. Miranda. We will instruct him to continue to wear LifeVest until told otherwise. Chest X-Ray 12/10/17 20:04 IMPRESSION: Redemonstration of cardiomegaly but no acute lung parenchyma or pleural disease. Mild congestion. D/ / 12/10/2017 21:05:50 Kalli Berman MD / [facility] Interpreting Provider: Kalli Berman MD Chest CTA 12/10/17 20:17 IMPRESSION: 1. No evidence for acute pulmonary embolism. 2. Cardiomegaly unchanged. New reflux of contrast into the IVC and hepatic veins. Right heart failure possible. 3. Resolved left pleural effusion and partially resolved right pleural effusion with small residual. 4. Partially imaged upper abdominal ascites probably decreased from prior. D/ / Olaf Ayoub MD / Olaf Ayoub MD Interpreting Provider: Olaf Ayoub MD Vital Signs Temperature 98.6 F 12/10/17 19:37 Pulse Rate 122 12/10/17 19:37 Respiratory Rate 20 12/10/17 19:37 Blood Pressure 112/78 12/10/17 19:37 O2 Sat by Pulse Oximetry 97 12/10/17 19:37 Temperature 98.6 F 12/10/17 19:37 Pulse Rate 106 12/11/17 00:12 Respiratory Rate 18 12/11/17 00:12 Blood Pressure 106/84 12/11/17 00:12 O2 Sat by Pulse Oximetry 99 12/11/17 00:12 Oxygen Delivery Oxygen Delivery Room Air Shortness of Breath/Dyspnea - [facility] Narrative Medical decision making narrative: Patient was tachycardic on presentation. Otherwise, the rest of the vitals within normal limits. 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 With tachycardia and shortness of breath, there is concern for PE. Will order CT of the chest for further assessment. We will also order basic blood work, EKG, troponin level. Patient has significant edema bilateral lower extremities and abdomen. We will admit for diuresis after labs return. No active chest pain at this time. EKG on 12/2017 at 20:04. Sinus tachycardia. Rate 118. NE 158 QRS 101. QTc 464. Normal axis. No acute ST elevation or depression. There are T wave inversions in V5 and V6 that are present on old EKG. 23:59 BNP elevated in the 3000, highest that it has been in the past. Trop negative Chest CTA shows no evidence of any PE. There is some reflux of contrast into the IVC and hepatic veins concerning for right heart failure. Patient is given IV Lasix 40 mg here. We will admit the patient for further care at this time. Patient was accepted by Dr. Miranda. We will instruct him to continue to wear LifeVest until told otherwise. - Medical Records Medical records reviewed: Yes I reviewed the patient's medical records. - Lab Data Lab results reviewed: Yes I reviewed the patient's lab results. Result diagrams: 12/10/17 20:04 12/10/17 20:04 Lab Results 12/10/17 12/10/17 12/10/17 Range/Units 20:04 20:04 20:04 WBC 9.2 (4.3-11.1) K/mcL RBC 4.39 (4.19-5.50) M/mcL Hgb 13.4 (12.9-16.9) g/dL Hct 40.5 (37.5-50.1) % MCV 92.3 (83.0-100.0) fL MCH 30.5 (28.0-33.3) pg MCHC 33.1 (31.6-35.5) g/dL RDW 14.9 H (11.5-14.5) % Plt Count 291 (140-400) K/mcL MPV 10.5 (9.4-12.4) fL Immature Gran % 0.3 (0-4) % Seg Neutrophils % 66.9 % Lymphocytes % 24.4 % Monocytes % 6.5 % Eosinophils % 1.4 % Basophils % 0.5 % Neutrophils # 6.2 (1.6-8.9) K/mcL Lymphocytes # 2.3 (0.6-4.6) K/mcL Monocytes # 0.6 (0.0-1.3) K/mcL Eosinophils # 0.1 (0.0-0.6) K/mcL Basophils # 0.1 (0.0-0.2) K/mcL PT (9.4-12.1) Seconds INR APTT (26.0-36.0) Seconds Sodium 134 L (136-145) mEq/L Potassium 3.7 (3.5-5.1) mEq/L Chloride 103 (98-107) mEq/L Carbon Dioxide 21 L (23-29) mEq/L BUN 26 H (6-20) mg/dL Creatinine 1.13 (0.70-1.30) mg/dL Est GFR ( Amer) > 60 (> 60) Est GFR (Non-Af Amer) > 60 (> 60) BUN/Creatinine Ratio 23 (6-26) Glucose 160 H (70-105) mg/dL Calculated Osmolality 286 (280-300) Calcium 8.8 (8.6-10.3) mg/dL Troponin I 0.04 H* (< 0.04) ng/mL B-Natriuretic Peptide 3855 H (Less than 100) pg/mL 12/10/17 Range/Units 20:05 WBC (4.3-11.1) K/mcL RBC (4.19-5.50) M/mcL Hgb (12.9-16.9) g/dL Hct (37.5-50.1) % MCV (83.0-100.0) fL MCH (28.0-33.3) pg MCHC (31.6-35.5) g/dL RDW (11.5-14.5) % Plt Count (140-400) K/mcL MPV (9.4-12.4) fL Immature Gran % (0-4) % Seg Neutrophils % % Lymphocytes % % Monocytes % % Eosinophils % % Basophils % % Neutrophils # (1.6-8.9) K/mcL Lymphocytes # (0.6-4.6) K/mcL Monocytes # (0.0-1.3) K/mcL Eosinophils # (0.0-0.6) K/mcL Basophils # (0.0-0.2) K/mcL PT 28.5 H (9.4-12.1) Seconds INR 2.5 APTT 32.2 (26.0-36.0) Seconds Sodium (136-145) mEq/L Potassium (3.5-5.1) mEq/L Chloride (98-107) mEq/L Carbon Dioxide (23-29) mEq/L BUN (6-20) mg/dL Creatinine (0.70-1.30) mg/dL Est GFR ( Amer) (> 60) Est GFR (Non-Af Amer) (> 60) BUN/Creatinine Ratio (6-26) Glucose (70-105) mg/dL Calculated Osmolality (280-300) Calcium (8.6-10.3) mg/dL Troponin I (< 0.04) ng/mL B-Natriuretic Peptide (Less than 100) pg/mL - Radiology Data Radiology results reviewed: Yes I reviewed the patient's radiology results. Chest X-Ray 12/10/17 20:04 IMPRESSION: Redemonstration of cardiomegaly but no acute lung parenchyma or pleural disease. Mild congestion. D/ / 12/10/2017 21:05:50 Kalli Berman MD / [email or web address] Interpreting Provider: Kalli Berman MD Chest CTA 12/10/17 20:17 IMPRESSION: 1. No evidence for acute pulmonary embolism. 2. Cardiomegaly unchanged. New reflux of contrast into the IVC and hepatic veins. Right heart failure possible. 3. Resolved left pleural effusion and partially resolved right pleural effusion with small residual. 4. Partially imaged upper abdominal ascites probably decreased from prior. D/ / Olaf Ayoub MD / Olaf Ayoub MD Interpreting Provider: Olaf Ayoub MD anna. - [place] Situation: Demographics, MOA Background: Presenting Complaint, Relevant PMH, Meds, & Allergies Assessment: Vital Signs, Course and respsone to treatment, Exam Concerns, Patient/Family Expectation, Pertinant Lab Results Recommendation: Barrier(s) to disposition, Recommendation based on pending studies, treatments, or consults [place] Report Given to: Dr. Miranda Attestation Statement - Attestation Attestation: I examined this patient and my medical decision-making was reviewed with the Resident Physician. I agree with the documented findings, disposition and treatment plan as described except to the extent set forth below. Findings consistent with volume overload. We will start diuresis. Patient was sent in by cardiology. Patient has chronic cardiac biomarker elevation. We will proceed with diuresis, admission for heart failure exacerbation.
[2017-12-10] MEDS ORDERED: Isovue-370 500 ML INFUS..BTL IV ONE (20:17)
[2017-12-10 20:40] LABS: Basophils # 0.1 K/mcL (0.0-0.2); Basophils % 0.5 %; Eosinophils # 0.1 K/mcL (0.0-0.6); Eosinophils % 1.4 %; Hematocrit 40.5 % (37.5-50.1); Hemoglobin 13.4 g/dL (12.9-16.9); Immature Granulocytes % 0.3 % (0-4); Lymphocytes # 2.3 K/mcL (0.6-4.6); Lymphocytes % 24.4 %; Mean Corpuscular HGB Conc 33.1 g/dL (31.6-35.5); Mean Corpuscular Hemoglobin 30.5 pg (28.0-33.3); Mean Corpuscular Volume 92.3 fL (83.0-100.0); Mean Platelet Volume 10.5 fL (9.4-12.4); Monocytes # 0.6 K/mcL (0.0-1.3); Monocytes % 6.5 %; Neutrophils # 6.2 K/mcL (1.6-8.9); Platelet Count 291 K/mcL (140-400); Red Blood Count 4.39 M/mcL (4.19-5.50); Red Cell Distribution Width 14.9 % (11.5-14.5); Segmented Neutrophils % 66.9 %
[2017-12-10 20:45] LABS: INR 2.5; Prothrombin Time 28.5 Seconds (9.4-12.1)
[2017-12-10 20:48] LABS: Activated Partial Thrombo Time 32.2 Seconds (26.0-36.0)
[2017-12-10 21:11] LABS: Chloride 103 mEq/L (98-107); Potassium 3.7 mEq/L (3.5-5.1); Sodium 134 mEq/L (136-145); Troponin I 0.04 ng/mL (< 0.04)
[2017-12-10 22:02] LABS: BUN/Creatinine Ratio 23 (6-26); Blood Urea Nitrogen 26 mg/dL (6-20); Calcium 8.8 mg/dL (8.6-10.3); Carbon Dioxide 21 mEq/L (23-29); Glucose 160 mg/dL (70-105); Osmolality,Calculated 286 (280-300); eGFR For Non-African Americans > 60 (> 60)
[2017-12-10] MEDS ORDERED: Furosemide 40 MG/4 ML VIAL IVP ONE (22:25)
[2017-12-11] MEDS ORDERED: Acetaminophen 325 MG TABLET PO PRN (05:34)
[2017-12-11] MEDS ORDERED: Naloxone 0.4 MG/ML INJ IVP PRN (05:34)
--- NOTE | 2017-12-11 06:31 | Internal Med History&Physical ---
Date of Encounter: 12/11/17 Time of Encounter: 05:00 Internal Medicine - H&P: HPI Chief complaint: SOB Admitted From: Emergency Dept Plans for Post Hospital Care: Home History of present illness: Mr. Byrd is a 32 year old male who presents with a 2 to 3-day history of progressive dyspnea, edema, orthopnea, and paroxysmal nocturnal dyspnea. He was diagnosed with CHF in the ER, administered Lasix, and admitted to hospitalist service. Upon my assessment of the patient, patient is already breathing a little easier and has diuresed with one dose of IV Lasix. He denies any fevers, cough, congestion, or chest pain. He was recently diagnosed with a dilated cardiomyopathy in September of this year. His last echo showed ejection fraction of 10-15%. He has been wearing a LifeVest and is a potential candidate for an AICD if his cardiac function is not improved. He was just hospitalized about a week and half ago at [facility] for CHF as well. He has been advised that he may need a heart transplant. He was referred to [facility], but he has yet to see the outpatient four slide operator. He has been following with [facility], but he has been referred to [facility] for further workup and possibly to begin the process of heart transplantation. Past Med Surg Social Fam HX - Past Medical History Attestation: Yes The following information was validated with the patient. Source: patient, old records reviewed Medical history: cardiomyopathy, CHF, CVA, hypertension, myocardial infarction, other Additional medical history: ef 10%, lvad Psychiatric history: no psych history - Past Surgical History Additional surgical history: collapsed lung/chest tube - Social History Smoking Status: Former smoker Smokeless Tobacco Status: No Alcohol use: none Drug use: marijuana Current living situation: Home - Independent Activity Level: Independent ambulation Recent Out of Country Travel Within the Last 8 Weeks: No - Additional Family History Additional family history: no FH CAD or CHF Internal Medicine - H&P: Meds Furosemide [Lasix] 40 mg PO DAILY 11/22/17 [History] Lisinopril [Zestril] 5 mg PO DAILY 11/22/17 [History] Metoprolol Succinate [Toprol Xl] 50 mg PO DAILY 11/22/17 [History] Pantoprazole Sodium [Protonix] 40 mg PO DAILY 11/22/17 [History] Warfarin [Coumadin] 5 mg PO SUMOTUTHSA 11/22/17 [History] Albuterol Sulfate [Ventolin Hfa] 8 gm IH 12/10/17 [History] Carvedilol [Coreg] 6.25 mg PO BIDWM 12/10/17 [History] 3 Allergy/AdvReac Type Severity Reaction Status Date / Time No Known Allergies Allergy Verified 11/22/17 17:10 - Constitutional Constitutional: no chills, no fever(s) - EENT Eyes: no blurry vision, no change in vision Ears: no ear pain, no tinnitus Nose, mouth and throat: no nasal congestion, no sinus pressure, no sore throat - Cardiovascular Cardiovascular ROS IM: diaphoresis, dyspnea, dyspnea on exertion, edema, orthopnea, paroxysmal nocturnal dyspnea, no chest pain - Respiratory Respiratory: dyspnea, no cough, no hemoptysis, no chest congestion, no excessive phlegm production, no change in phlegm color - Gastrointestinal Gastrointestinal: no abdominal pain, no diarrhea, no hematemesis, no hematochezia, no melena, no vomiting - Genitourinary Genitourinary ROS male: no dysuria, no flank pain, no hematuria - Musculoskeletal Musculoskeletal ROS IM: no arthralgias, no back pain - Integumentary Integumentary IM: no rash, no jaundice - Neurological Neurological ROS: no dizziness, no focal weakness, no frequent falls, no headache(s) - Psychiatric Psychiatric: no anxiety, no depression - Endocrine Endocrine IM: no polydipsia, no polyuria - Allergic/Immunologic Allergic/Immunologic: no wheezing, no GI upset with certain foods - Constitutional Vitals: Temp Pulse Resp BP Pulse Ox 97.9 F 98 17 109/72 98 12/11/17 04:39 12/11/17 04:39 12/11/17 04:39 12/11/17 04:39 12/11/17 04:39 General appearance: Present: cooperative, A&O X 3, pleasant, no acute distress, answers questions appropriately Exam: see below - Head Head exam: Present: atraumatic, normal inspection - Eye Eye exam: Present: EOMI, PERRL. Absent: scleral icterus Pupils: Present: normal accommodation - ENT ENT exam: Present: mucous membranes dry, normal exam, normal oropharynx - Neck Neck exam general surgery: Present: full ROM, supple. Absent: tenderness, nuchal rigidity, thyromegaly - Respiratory Respiratory exam: Present: rales (both bases). Absent: chest wall tenderness, respiratory distress, rhonchi, wheezes - Cardiovascular Cardiovascular exam: Present: distant heart sounds, RRR, +S1, +S2. Absent: diastolic murmur, systolic murmur - GI/Abdominal GI/Abdominal exam: Present: soft. Absent: guarding, hepatomegaly, mass, rebound , splenomegaly, tenderness - Extremities Exam Extremities exam: Present: full ROM, normal capillary refill, pedal edema (2+), warm, radial pulses palpable and symmetrical. Absent: calf tenderness, joint swelling, tenderness - Back Exam Back exam: Absent: CVA tenderness (L), CVA tenderness (R) - Neurological Exam Neurological exam: Present: alert, oriented X3, no focal deficits - Psychiatric Psychiatric exam: Present: normal affect, normal mood - Skin Skin exam: Present: dry, warm. Absent: rash Internal Med - H&P Results - Labs CBC & Chem 7: 12/10/17 20:04 12/10/17 20:04 Labs: I am unable to find an EKG -- not sure if it was done in ER - Diagnostic Studies Chest x-ray Status: image reviewed by me (cardiomegaly with subtle CHF findings) - Assessment and plan (1) Acute systolic (congestive) heart failure Current Visit: Yes Status: Acute Assessment and plan: 1. Will continue diuresis with IV lasix for 24 hours, then convert back to oral home dose. 2. Fluid restriction of 1000 ml per day. 3. Will order limited ECHO to assess LVEF. 4. Consult cardiology for assistance and guidance. 5. Oxygen as needed for support. (2) Elevated troponin Current Visit: Yes Status: Acute Assessment and plan: 1. Likely due to CHF. 2. No active anginal symptoms. 3. Will treat CHF and trend troponins. 4. Will order EKG and trend them if necessary. (3) LV (left ventricular) mural thrombus Current Visit: Yes Status: Chronic Assessment and plan: 1. Continue Coumadin. 2. Last ECHO did not reveal an LV thrombus. (4) DVT prophylaxis Current Visit: Yes Status: Acute Assessment and plan: 1. Continue Coumadin and adjust dose daily according to INR.
[2017-12-11 08:17] LABS: INR 2.7; Prothrombin Time 30.8 Seconds (9.4-12.1)
[2017-12-11] MEDS: Furosemide 40 MG/4 ML VIAL IVP SCH ×2 (08:24→17:51)
[2017-12-11] MEDS ORDERED: Furosemide 40 MG/4 ML VIAL IVP SCH (09:00)
--- NOTE | 2017-12-11 10:01 | Internal Med Progress Note ---
Hospitalist Progress Note - Encounter Date of Encounter: 12/11/17 Time of Encounter: 09:52 - Subjective Interval History: Patient seen and examined this morning. Feeling much better. Good urine output. LE swelling gone down significantly. - Exam Vitals: Temp Pulse Resp BP Pulse Ox 97.5 F L 100 17 107/70 93 12/11/17 08:03 12/11/17 08:03 12/11/17 08:03 12/11/17 08:03 12/11/17 08:03 Exam: - Head: atraumatic, normal inspection - Eye: EOMI, PERRL. No scleral icterus. - ENT:mucous membranes dry, normal exam, normal oropharynx - Neck: full ROM, supple. no tenderness, nuchal rigidity, thyromegaly - Respiratory:rales (both bases). no chest wall tenderness, respiratory distress, rhonchi, wheezes - Cardiovascular: distant heart sounds, RRR, +S1, +S2. no diastolic murmur, systolic murmur - GI/Abdominal: soft. no guarding, hepatomegaly, mass, rebound, splenomegaly, tenderness - Extremities Exam: full ROM, normal capillary refill, pedal edema (2+), warm, radial pulses palpable and symmetrical. no calf tenderness, joint swelling, tenderness - Back Exam: no CVA tenderness (L), CVA tenderness (R) - Neurological Exam: alert, oriented X3, no focal deficits - Psychiatric: normal affect, normal mood - Skin:Present: dry, warm. no rash - Assessment and Plan (1) LV (left ventricular) mural thrombus Current Visit: Yes Status: Chronic (2) Elevated troponin Current Visit: Yes Status: Acute (3) Acute systolic (congestive) heart failure Current Visit: Yes Status: Acute (4) DVT prophylaxis Current Visit: Yes Status: Acute - Summary of Assessment and Plan Summary of Assessment and Plan: Acute systolic (congestive) heart failure - h/o non-ischemic cardiomyopathy. With AICD. - BNP 3855. Last Ef 10-15%. Decrease in 2 kg since admission. Good urine output. Significant clinical improvement. - Will continue diuresis with IV lasix. Add potassium daily. - Fluid restriction of 1000 ml per day. Salt restriction - f/u limited ECHO to assess LVEF. - cardiology consulted. Elevated troponin - Likely due to CHF. - No chest pain h/o LV mural thrombus and CVA - Continue Coumadin. - Last ECHO did not reveal an LV thrombus. DVT prophylaxis - continue Coumadin and adjust dose daily according to INR. - Time Spent with Patient Total time spent is greater than 50% in coordination of care (as documented) at patient's floor/unit and/or counseling patient: Internal Medicine: Result - Labs CBC & Chem 7: 12/10/17 20:04 12/10/17 20:04 Labs: Cardiac Enzymes 12/11/17 Range/Units 06:07 Troponin I 0.04 H* (< 0.04) ng/mL - ABG Interpretation ABG results: PT/INR, D-dimer PT 30.8 Seconds (9.4-12.1) H 12/11/17 08:04 Consult Discharge Plan - Plan Referrals: Shania Huerta, [employer] SUPERVISOR [Primary Care Provider] -
--- NOTE | 2017-12-11 12:51 | Cardiology Consult Note ---
Date of Encounter: 12/11/17 Time of Encounter: 12:49 Assessment and Plan (1) CHF (congestive heart failure) Current Visit: No Status: Acute Acute on chronic systolic CHF. Known EF 10-15%. Currently with life vest at bedside. Frequent hospital stays for CHF in the last three months. Long discussion about healthy diet and exercise. He is planning on starting cardiac rehab. Agree with IV lasix. Will need higher dose of lasix at discharge. Strict I&O and daily weights. Referral made to [facility] CHF clinic in out patient setting. Cardiac MRI was also recommended. WIll try to obtain records from recent [facility] hospital stay. Qualifiers: Heart failure type: systolic Heart failure chronicity: acute Qualified Code(s): I50.21 - Acute systolic (congestive) heart failure (2) LV (left ventricular) mural thrombus Current Visit: Yes Status: Chronic INR goal 2.0-3.0. Continue coumadin. Discussion w patient/family: The assessment and plan as outlined above was discussed with the patient and/or family members who expressed understanding and agreement. All questions were answered. Thank you for involving us in the care of your patient. Please call with any questions. History of Present Illness Consult date: 12/11/17 Requesting physician: Vaughn Zepeda Consult reason: Acute on chronic CHF Chief complaint: SOB History of present illness: Mr. Byrd is a 32 year old male with a past medical history significant for NICMP EF 10-15%, LV thrombus, and CVA currently with life vest who presents with SOB, BLE edema, and weight gain. Reports 16 lb weight gain in past two weeks. Reports frustration with frequent hospital admits. Feels his lasix is not working. States that he was just discharged from [facility] with CHF two weeks ago and he lost 20 kg at that time. Multiple admissions for CHF since his diagnosis in September this year. He feels he is compliant with his low sodium diet and medications. Denies chest pain orthopnea, PND, or edema. Past Med Surg Social Fam HX - Past Medical History Medical history: cardiomyopathy, CHF, CVA, hypertension, myocardial infarction, other Additional medical history: ef 10%, lvad Psychiatric history: no psych history - Past Surgical History Additional surgical history: collapsed lung/chest tube - Social History Smoking Status: Former smoker Smokeless Tobacco Status: No Alcohol use: none Drug use: marijuana Medications and Allergies Furosemide [Lasix] 80 mg PO DAILY 11/22/17 [History] Lisinopril [Zestril] 5 mg PO DAILY 11/22/17 [History] Pantoprazole Sodium [Protonix] 40 mg PO DAILY 11/22/17 [History] Warfarin [Coumadin] 5 mg PO DAILY 11/22/17 [History] Carvedilol [Coreg] 6.25 mg PO BIDWM 12/10/17 [History] 3 Allergy/AdvReac Type Severity Reaction Status Date / Time No Known Allergies Allergy Verified 11/22/17 17:10 All Systems Review: The remainder of the systems were reviewed and are negative Physical Examination Vital Signs, Last 4 Hours Temp Pulse Resp BP Pulse Ox 12/11/17 11:37 96.1 F L 106 15 107/73 96 General: Conversant, No Apparent Distress HEENT: Atraumatic, Normocephaly, Mucus Membranes Moist Neck: No JVD, Normal carotid pulses Cardiac: Reg Rate and Rhythm, Normal S1 and S2, No Murmur Lungs: Normal Breath Sounds, No Wheeze, Rales, Rhonchi Neuro: Alert and responsive, No focal deficits noted Abdomen: Soft, Non-Tender Skin: No rashes noted on visualized skin Musculoskeletal: No Chest Wall Tenderness Extremities: No Clubbing, No Cyanosis, Normal Pulses, Other (2+ edema RLE) Results 12/10/17 20:04 12/10/17 20:04 Lab Results 12/11/17 12/11/17 06:07 08:04 INR 2.7 Troponin I 0.04 H* - Imaging and Cardiology Echo: report reviewed - EKG Interpretation EKG results cardiology: personally reviewed Consult Discharge Plan - Plan Referrals: Shania Huerta, HEALTH CENTER ASSOCIATE [Primary Care Provider] -
[2017-12-11] MEDS ORDERED: Perflutren Lipid Microsphere 1.3 ML in 0.9 % Sodium Chloride 8.7 ML IVP ONE (14:57)
[2017-12-11] MEDS ORDERED: Warfarin perPT PO PRN (18:00)
[2017-12-11] MEDS ORDERED: *HR* Warfarin 2.5 MG TABLET PO ONE (18:00)
[2017-12-12 04:38] LABS: Basophils # 0.1 K/mcL (0.0-0.2); Basophils % 0.8 %; Eosinophils # 0.2 K/mcL (0.0-0.6); Eosinophils % 2.4 %; Hematocrit 38.6 % (37.5-50.1); Hemoglobin 12.6 g/dL (12.9-16.9); Immature Granulocytes % 0.4 % (0-4); Lymphocytes # 2.2 K/mcL (0.6-4.6); Lymphocytes % 28.5 %; Mean Corpuscular HGB Conc 32.6 g/dL (31.6-35.5); Mean Corpuscular Hemoglobin 30.1 pg (28.0-33.3); Mean Corpuscular Volume 92.3 fL (83.0-100.0); Mean Platelet Volume 10.6 fL (9.4-12.4); Monocytes # 0.7 K/mcL (0.0-1.3); Monocytes % 8.9 %; Neutrophils # 4.5 K/mcL (1.6-8.9); Platelet Count 242 K/mcL (140-400); Red Blood Count 4.18 M/mcL (4.19-5.50); Red Cell Distribution Width 15.1 % (11.5-14.5)
[2017-12-12 04:43] LABS: INR 2.9; Prothrombin Time 32.3 Seconds (9.4-12.1)
[2017-12-12 05:03] LABS: Alanine Aminotransferase 39 Units/L (7-52); Albumin 3.7 g/dL (3.5-5.7); Albumin/Globulin Ratio 1.9 (1.1-2.2); Alkaline Phosphatase 46 Units/L (34-104); Aspartate Amino Transferase 19 Units/L (13-39); BUN/Creatinine Ratio 26 (6-26); Bilirubin,Total 1.2 mg/dL (0.3-1.0); Blood Urea Nitrogen 25 mg/dL (6-20); Calcium 8.9 mg/dL (8.6-10.3); Carbon Dioxide 24 mEq/L (23-29); Chloride 104 mEq/L (98-107); Chol/HDL Ratio 2.7 (0-4.9); Cholesterol 97 mg/dL (< 200); Globulin 1.9 g/dL (2.4-3.5); Glucose 95 mg/dL (70-105); HDL Cholesterol 36 mg/dL (40-59); LDL Cholesterol,Calculated 51 mg/dL (0-99); Magnesium 1.9 mg/dL (1.6-2.6); Osmolality,Calculated 290 (280-300); Potassium 3.2 mEq/L (3.5-5.1); Sodium 138 mEq/L (136-145); Total Protein 5.6 g/dL (6.4-8.9); Triglycerides 51 mg/dL (< 150); eGFR For Non-African Americans > 60 (> 60)
[2017-12-12] MEDS ORDERED: *HR* Warfarin 5 MG TABLET PO SCH (05:37)
[2017-12-12] MEDS ORDERED: Furosemide 40 MG TABLET PO SCH (09:00)
[2017-12-12] MEDS ORDERED: Potassium Chloride Elixir 20 MEQ/15 ML UDC PO SCH (09:00)
[2017-12-12] MEDS ORDERED: Furosemide 40 MG/4 ML VIAL IVP ONE (10:13)
--- NOTE | 2017-12-12 11:44 | Internal Med Progress Note ---
Hospitalist Progress Note - Encounter Date of Encounter: 12/12/17 Time of Encounter: 10:39 - Subjective Interval History: Patient seen and examined this morning. Feeling much better. Good urine output. LE swelling gone down significantly. Expects to go home soon. - Exam Vitals: Temp Pulse Resp BP Pulse Ox 98.2 F 118 16 122/92 96 12/12/17 11:15 12/12/17 11:15 12/12/17 11:15 12/12/17 11:15 12/12/17 11:15 Exam: - Head: atraumatic, normal inspection - Eye: EOMI, PERRL. No scleral icterus. - ENT:mucous membranes dry, normal exam, normal oropharynx - Neck: full ROM, supple. no tenderness, nuchal rigidity, thyromegaly - Respiratory:rales (both bases). no chest wall tenderness, respiratory distress, rhonchi, wheezes - Cardiovascular: distant heart sounds, RRR, +S1, +S2. no diastolic murmur, systolic murmur - GI/Abdominal: soft. no guarding, hepatomegaly, mass, rebound, splenomegaly, tenderness - Extremities Exam: full ROM, normal capillary refill, pedal edema (1+), warm, radial pulses palpable and symmetrical. no calf tenderness, joint swelling, tenderness - Back Exam: no CVA tenderness (L), CVA tenderness (R) - Neurological Exam: alert, oriented X3, no focal deficits - Psychiatric: normal affect, normal mood - Skin:Present: dry, warm. no rash - Assessment and Plan (1) Acute systolic (congestive) heart failure Current Visit: Yes Status: Acute (2) LV (left ventricular) mural thrombus Current Visit: Yes Status: Chronic (3) Elevated troponin Current Visit: Yes Status: Acute (4) DVT prophylaxis Current Visit: Yes Status: Acute - Summary of Assessment and Plan Summary of Assessment and Plan: Acute systolic (congestive) heart failure - h/o non-ischemic cardiomyopathy. With AICD. - BNP 3855. Last Ef 10-15%. Good urine output. Significant clinical improvement. - Will continue diuresis with IV lasix for one more day. Add potassium daily. - Fluid restriction of 1000 ml per day. Salt restriction - limited ECHO this admission with EF of 15-20%. Severely dilated LV. Sever eccentric LVH. - cardiology following. Cardiac rehab on discharge. Will increase lasix dose on discharge. Elevated troponin - Likely due to CHF. - No chest pain h/o LV mural thrombus and CVA - Continue Coumadin. - Last ECHO did not reveal an LV thrombus. DVT prophylaxis - continue Coumadin and adjust dose daily according to INR. - Time Spent with Patient Total time spent is greater than 50% in coordination of care (as documented) at patient's floor/unit and/or counseling patient: Internal Medicine: Result - Labs CBC & Chem 7: 12/12/17 04:12 12/12/17 04:12 Labs: Short CBC 12/12/17 Range/Units 04:12 WBC 7.6 (4.3-11.1) K/mcL Hgb 12.6 L (12.9-16.9) g/dL Hct 38.6 (37.5-50.1) % Plt Count 242 (140-400) K/mcL Neutrophils # 4.5 (1.6-8.9) K/mcL BMP 12/12/17 04:12 Sodium 138 Potassium 3.2 L Chloride 104 Carbon Dioxide 24 BUN 25 H Creatinine 0.97 Glucose 95 Calcium 8.9 Cardiac Enzymes 12/11/17 12/11/17 Range/Units 12:39 17:28 Troponin I 0.04 H* 0.04 H* (< 0.04) ng/mL Liver Function 12/12/17 Range/Units 04:12 Total Bilirubin 1.2 H (0.3-1.0) mg/dL AST 19 (13-39) Units/L ALT 39 (7-52) Units/L Alkaline Phosphatase 46 (34-104) Units/L Albumin 3.7 (3.5-5.7) g/dL - ABG Interpretation ABG results: PT/INR, D-dimer PT 32.3 Seconds (9.4-12.1) H 12/12/17 04:12 - Impressions Impressions Echocardiogram Limited Views 12/11/17 05:34 Impressions: Limited Echo with LV contrast. LVEF 15-20%. Severe global LV systolic dysfunction. Severely dilated LV. Severe eccentric LVH. Mildly dilated RV with moderate hypokinesis. Moderately dilated LA and RA. Left Ventricular Wall Motion: Rest Echo Findings The apex, apical inferior, mid inferior, basal inferior, apical anterior, mid anterior, basal anterior, apical septal, mid inferior septal, basal inferior septal, apical lateral, mid anterior lateral, basal anterior lateral, mid anterior septal, mid inferior lateral, basal anterior septal and basal inferior lateral alvarez were hypokinetic. Findings: Comments * Limited for LV contrast. Study Quality * Technically adequate exam. ECG Findings * Normal sinus rhythm. Left Ventricle * LVEF 15-20%. * Severe eccentric left ventricular hypertrophy. * Severe global left ventricular systolic dysfunction. * There is no LV thrombus. * Definity echo contrast was used. * Severely dilated left ventricle. Right Ventricle * Mildly dilated right ventricle. * Moderate right ventricular hypokinesis. Left Atrium * Moderately dilated left atrium. Right Atrium * Moderately dilated right atrium. Consult Discharge Plan - Plan Referrals: Shania Huerta THREADING MACHINE [employer]EDER [employer]IC [Primary Care Provider] -
--- NOTE | 2017-12-12 14:22 | Cardiology Progress Note ---
Date of Encounter: 12/12/17 Time of Encounter: 14:20 Assessment and Plan (1) CHF (congestive heart failure) Current Visit: No Status: Acute Acute on chronic systolic Bi ventricular CHF. BNP 3855. Known EF 10-15% on last TTE at [facility] a few weeks ago. Currently with life vest at bedside. [facility] 09/2017 showed normal cors. idiopathic CMP. Possible viral vs excessive energy drinks and drug use. TTE completed this admission showed EF 15-20%. with moderate RV hypokenesis. Frequent hospital stays for CHF in the last three months. Long discussion about healthy diet and exercise. He is planning on starting cardiac rehab. I will order. Agree with continuing IV lasix. Continues to have abdominal bloating. Reports dry weight at about 152lbs. Currently 158 lbs. Recommend IV diuretic until dry. Will need higher dose of lasix at discharge. Strict I&O and daily weights. Referral made to [facility] CHF clinic in out patient setting. Cardiac MRI was also recommended. WIll try to obtain records from recent [facility] hospital stay. Qualifiers: Heart failure type: systolic Heart failure chronicity: acute Qualified Code(s): I50.21 - Acute systolic (congestive) heart failure (2) LV (left ventricular) mural thrombus Current Visit: Yes Status: Chronic INR goal 2.0-3.0. Continue coumadin. Discussion w patient/family: The assessment and plan as outlined above was discussed with the patient and/or family members who expressed understanding and agreement. All questions were answered. Thank you for involving us in the care of your patient. Please call with any questions. Subjective Principal diagnosis: ACute on chronic CHF Interval history: Mr. Byrd states that the oral potassium makes him feel bad. Continues to have abdominal bloating and ankle edema. Reported to have syncoapl event last night after receiving definity for echo. Objective Vital Signs, Last 4 Hours Temp Pulse Resp BP Pulse Ox 12/12/17 11:15 98.2 F 118 16 122/92 96 12/12/17 11:11 98.2 F 118 16 122/92 96 General: Conversant, No Apparent Distress HEENT: Atraumatic, Normocephaly, Mucus Membranes Moist Neck: No JVD, Normal carotid pulses Cardiac: Reg Rate and Rhythm, Normal S1 and S2, No Murmur, Other (Sinus tachycardia) Lungs: Normal Breath Sounds, No Wheeze, Rales, Rhonchi Neuro: Alert and responsive, No focal deficits noted Abdomen: Soft, Non-Tender, Other (distended) Skin: No rashes noted on visualized skin Musculoskeletal: No Chest Wall Tenderness Extremities: No Clubbing, No Cyanosis, Normal Pulses, Other (1+ ankle edema) Results 12/12/17 04:12 12/12/17 04:12 Lab Results 12/11/17 12/12/17 12/12/17 17:28 04:12 04:12 WBC 7.6 Hgb 12.6 L Hct 38.6 Plt Count 242 INR APTT 34.0 Sodium Potassium Chloride Carbon Dioxide BUN Creatinine Glucose Calcium Magnesium Total Bilirubin AST ALT Alkaline Phosphatase Troponin I 0.04 H* 12/12/17 12/12/17 04:12 04:12 WBC Hgb Hct Plt Count INR 2.9 APTT Sodium 138 Potassium 3.2 L Chloride 104 Carbon Dioxide 24 BUN 25 H Creatinine 0.97 Glucose 95 Calcium 8.9 Magnesium 1.9 Total Bilirubin 1.2 H AST 19 ALT 39 Alkaline Phosphatase 46 Troponin I Chest X-Ray 12/10/17 20:04 IMPRESSION: Redemonstration of cardiomegaly but no acute lung parenchyma or pleural disease. Mild congestion. D/ / 12/10/2017 21:05:50 Kalli Berman MD / earlexa Interpreting Provider: Kalli Berman MD Chest CTA 12/10/17 20:17 IMPRESSION: 1. No evidence for acute pulmonary embolism. 2. Cardiomegaly unchanged. New reflux of contrast into the IVC and hepatic veins. Right heart failure possible. 3. Resolved left pleural effusion and partially resolved right pleural effusion with small residual. 4. Partially imaged upper abdominal ascites probably decreased from prior. D/ / Olaf Ayoub MD / Olaf Ayoub MD Interpreting Provider: Olaf Ayoub MD Echocardiogram Limited Views 12/11/17 05:34 Impressions: Limited Echo with LV contrast. LVEF 15-20%. Severe global LV systolic dysfunction. Severely dilated LV. Severe eccentric LVH. Mildly dilated RV with moderate hypokinesis. Moderately dilated LA and RA. Left Ventricular Wall Motion: Rest Echo Findings The apex, apical inferior, mid inferior, basal inferior, apical anterior, mid anterior, basal anterior, apical septal, mid inferior septal, basal inferior septal, apical lateral, mid anterior lateral, basal anterior lateral, mid anterior septal, mid inferior lateral, basal anterior septal and basal inferior lateral alvarez were hypokinetic. - Imaging and Cardiology Echo: report reviewed - EKG Interpretation EKG results cardiology: personally reviewed Consult Discharge Plan - Plan Referrals: Shania Huerta, ELECTRONIC EQUIPMENT REPAIRER [Primary Care Provider] - 12/19/17 12:30 pm
[2017-12-12] MEDS: Furosemide 40 MG/4 ML VIAL IVP SCH (16:26)
[2017-12-12] MEDS ORDERED: *HR* Warfarin 2.5 MG TABLET PO ONE (18:00)
[2017-12-13] MEDS ORDERED: Mag Hydrox/Al Hydrox/Simeth 30 ML UDC PO ONE (00:10)
[2017-12-13 05:28] LABS: INR 2.2; Prothrombin Time 24.6 Seconds (9.4-12.1)
[2017-12-13] MEDS: Furosemide 40 MG/4 ML VIAL IVP SCH ×2 (07:43→16:07)
[2017-12-13 08:28] LABS: BUN/Creatinine Ratio 24 (6-26); Blood Urea Nitrogen 29 mg/dL (6-20); Carbon Dioxide 22 mEq/L (23-29); Chloride 105 mEq/L (98-107); Glucose 159 mg/dL (70-105); Osmolality,Calculated 293 (280-300); Potassium 4.1 mEq/L (3.5-5.1); Sodium 137 mEq/L (136-145); eGFR For Non-African Americans > 60 (> 60)
--- NOTE | 2017-12-13 11:48 | Cardiology Progress Note ---
Date of Encounter: 12/13/17 Time of Encounter: 11:41 Assessment and Plan (1) CHF (congestive heart failure) Current Visit: No Status: Acute Acute on chronic systolic Bi-ventricular CHF. BNP 3855 on admit. Known EF 10-15 % on last TTE at [facility] a few weeks ago. Currently with life vest at bedside. [facility] 09/2017 showed normal cors. idiopathic CMP. Possible viral vs excessive energy drinks and drug use. TTE completed this admission showed EF 15-20%. with moderate RV hypokenesis. Reports non-compliance first month after diagnosis but is now on track. Reports compliance with medications and low sodium diet. Despite compliance. Frequent hospital stays for CHF in the last three months. At [facility] two weeks ago. Long discussion about healthy diet and exercise. He is planning on starting cardiac rehab. I will order. His baseline weight is 155lbs per significant other. Wt 156 today. Edema resolved. Agree with continuing IV lasix today and then convert to increased oral lasix 80 mg BID. Check BMP early next week. CHF education reviewed. Diet discussed extensively. Strict I&O and daily weights. Referral made to [facility] CHF clinic in out patient setting. Cardiac MRI was also recommended. Records ordered by [facility]. Out-pt f/u in one week with Dr. Monteiro. Cardiology signing off. Qualifiers: Heart failure type: systolic Heart failure chronicity: acute Qualified Code(s): I50.21 - Acute systolic (congestive) heart failure (2) LV (left ventricular) mural thrombus Current Visit: Yes Status: Chronic INR goal 2.0-3.0. Continue coumadin. Follows with coumadin clinic. Discussion w patient/family: The assessment and plan as outlined above was discussed with the patient and/or family members who expressed understanding and agreement. All questions were answered. Thank you for involving us in the care of your patient. Please call with any questions. Subjective Principal diagnosis: ACute on chronic CHF Interval history: No new complaints. C/o feeling full and bloating when eating meal. SOB and BLE edema resolved. Objective Vital Signs, Last 4 Hours Temp Pulse Resp BP Pulse Ox 12/13/17 11:14 97.5 F L 110 18 107/88 96 12/13/17 07:56 97.8 F 76 16 106/81 96 12/13/17 07:45 97.8 F 76 16 106/81 96 General: Conversant, No Apparent Distress HEENT: Atraumatic, Normocephaly, Mucus Membranes Moist Neck: No JVD, Normal carotid pulses Cardiac: Reg Rate and Rhythm, Normal S1 and S2, No Murmur Lungs: Normal Breath Sounds, No Wheeze, Rales, Rhonchi Neuro: Alert and responsive, No focal deficits noted Abdomen: Soft, Non-Tender, Other (Soft but mildly distended) Skin: No rashes noted on visualized skin Musculoskeletal: No Chest Wall Tenderness Extremities: No Clubbing, No Cyanosis, No Edema, Normal Pulses Results 12/12/17 04:12 12/13/17 04:38 Lab Results 12/13/17 12/13/17 04:38 04:38 INR 2.2 Sodium 137 Potassium 4.1 Chloride 105 Carbon Dioxide 22 L BUN 29 H Creatinine 1.22 Glucose 159 H Calcium 9.0 Magnesium 2.0 - Imaging and Cardiology Echo: report reviewed - EKG Interpretation EKG results cardiology: personally reviewed Consult Discharge Plan - Plan Referrals: Shania Huerta CNP [Primary Care Provider] - 12/19/17 12:30 pm
[2017-12-13] MEDS ORDERED: Furosemide 40 MG/4 ML VIAL IVP ONE (12:00)
[2017-12-13 15:56] VITALS: BP 96/64
--- NOTE | 2017-12-13 16:43 | Discharge Summary ---
- NOTES TO OUTPATIENT PROVIDER Notes to Outpatient Provider: Lasix dose increased to 80 twice a day. Check BMP in 1 week. Cardiac MRI recommended by cardiology. Needs cardiac rehabilitation. Referral made to [facility] CHF clinic. Orders not resulted at time of discharge: Pending orders 12/14/17 04:00 INR/PT [Prothrombin Time INR] [COAG] AM 0400 12/15/17 04:00 INR/PT [Prothrombin Time INR] [COAG] AM 0400 12/16/17 04:00 INR/PT [Prothrombin Time INR] [COAG] AM 0400 Date of Encounter: 12/13/17 Time of Encounter: 12:26 - Discharge Diagnosis (1) Acute systolic (congestive) heart failure Priority: Primary Status: Acute (2) LV (left ventricular) mural thrombus Priority: Secondary Status: Chronic (3) Elevated troponin Priority: Secondary Status: Acute (4) DVT prophylaxis Priority: Secondary Status: Acute Hospital course: Mr. Byrd is a 32 year old male epithelial with the ejection fraction of 10-15 % was admitted due to shortness of breath from CHF exacerbation patient was diuresed with IV Lasix. Negative balance of 6.5 L was achieved and decrease in 4 kg of water was achieved. Patient was discharged on increase dose of Lasix 80 twice a day along with potassium 20 daily. Patient had limited echo which showed EF of 15-20%. Of note when patient was given Definity for ECHO patient had an episode where he passed out however regained consciousness in few minutes and had some seizure-like activity reported by nurse. Telemetry did not show a significant event at that time. Unclear whether patient had an allergic reaction. To keep in mind for future. On discharge patient had discussion with cardiology about cardiac rehabilitation. Patient also observed salt restriction and fluid restriction. - Time Spent with Patient Total time spent providing and/or coordinating discharge services: Greater than 30 minutes - Discharge Medications Prescriptions: Furosemide [Lasix] 80 mg PO BID 30 Days #60 tablet Potassium Chloride 20 meq PO DAILY 30 Days #30 tab.er.prt Home Medications: Lisinopril [Zestril] 5 mg PO DAILY 11/22/17 [History] Pantoprazole Sodium [Protonix] 40 mg PO DAILY 11/22/17 [History] Warfarin [Coumadin] 5 mg PO DAILY 11/22/17 [History] Carvedilol [Coreg] 6.25 mg PO BIDWM 12/10/17 [History] Furosemide [Lasix] 80 mg PO BID 30 Days #60 tablet 12/13/17 [Rx] Potassium Chloride 20 meq PO DAILY 30 Days #30 tab.er.prt 12/13/17 [Rx] Allergies/Adverse Reactions: 3 Allergy/AdvReac Type Severity Reaction Status Date / Time No Known Allergies Allergy Verified 11/22/17 17:10 Date of admission: 12/11/17 00:03 Primary care physician: Shania Huerta CNP Consults: 12/11/17 05:36 Consult to Physician [CONS] Routine Consulting Provider: Olaf Pierre Reason for Consult: dilated cardiomyopathy wiht CHF and troponin elevation Call Completed: No - Constitutional Vitals: Temp Pulse Resp BP Pulse Ox 97.8 F 107 18 96/64 95 12/13/17 15:55 12/13/17 15:55 12/13/17 15:55 12/13/17 15:55 12/13/17 15:55 General appearance: Present: cooperative, A&O X 3, pleasant, no acute distress, answers questions appropriately Exam: - Head: atraumatic, normal inspection - Eye: EOMI, PERRL. No scleral icterus. - ENT:mucous membranes dry, normal exam, normal oropharynx - Neck: full ROM, supple. no tenderness, nuchal rigidity, thyromegaly - Respiratory: CTA, no chest wall tenderness, respiratory distress, rhonchi, wheezes - Cardiovascular: RRR, +S1, +S2. no diastolic murmur, systolic murmur - GI/Abdominal: soft. no guarding, hepatomegaly, mass, rebound, splenomegaly, tenderness - Extremities Exam: full ROM, normal capillary refill, pedal edema trace, warm, radial pulses palpable and symmetrical. no calf tenderness, joint swelling, tenderness - Back Exam: no CVA tenderness (L), CVA tenderness (R) - Neurological Exam: alert, oriented X3, no focal deficits - Psychiatric: normal affect, normal mood - Skin:Present: dry, warm. no rash - Patient Status Disposition: Home, Self-Care Condition: Good Overall status at discharge: patient is back to baseline - Discharge Instructions Instructions: Heart Failure (DC) Follow Up With: Avis Monteiro [Partnered Physician] - Shania Huerta, FARA [Primary Care Provider] - 12/19/17 12:30 pm - Diet and Activity Activity: resume usual activities as tolerated
[2017-12-13] MEDS ORDERED: *HR* Warfarin 5 MG TABLET PO ONE (18:00)
--- NOTE | 2017-12-14 11:52 | Electrocardiograph Report ---
[place] [address] Test Date: 2017-12-10 Pat Name: tSeven Byrd Department: [id number] Room: 2N13 Gender: M Fitting Room Checker: : 1985 Requested By: Tim Contreras Order Number: [id number] Reading MD: Patricia Yates Measurements Intervals [place] Rate: 118 P: 79 AL: 158 QRS: 71 QRSD: 101 T: 257 QT: 331 QTc: 464 Interpretive Statements Sinus tachycardia Left atrial enlargement Nonspecific T abnormalities, lateral leads Electronically Signed On 12-14-2017 11:50:43 EDT by Patricia Yates
--- NOTE | 2017-12-14 13:07 | Electrocardiograph Report ---
[address] [place], [place] [address] Test Date: 2017-12-11 Pat Name: Steven Byrd Department: 112 Room: 2N13 Gender: M Nurse: : 1985 Requested By: Devendra Miranda Order Number: [id number] Reading MD: Ismael Dennis Measurements Intervals [place] Rate: 97 P: 69 CA: 172 QRS: 49 QRSD: 108 T: 186 QT: 374 QTc: 429 Interpretive Statements SINUS RHYTHM POSSIBLE LEFT ATRIAL ENLARGEMENT MODERATE T-WAVE ABNORMALITY, CONSIDER LATERAL ISCHEMIA MODERATE T-WAVE ABNORMALITY, CONSIDER INFERIOR ISCHEMIA Electronically Signed On 12-14-2017 13:06:11 EDT by Ismael Dennis
== END 2017-12-13 17:16 | disposition home or self-care (01) ==
LOC: 2ANU 19:31 → EMEROOARM 19:31 → SUATTDRO 12-11 00:03 → 2ANU 12-11 00:30 → 2NNU 12-11 16:07
PROVIDERS: ADMIT Pediatrics; ATTEND Internal Medicine

== ENCOUNTER 2021-08-25 13:07 | Inpatient (IN) ==
[2021-08-25] MEDS ORDERED: *HR* Promethazine 25 MG/ML VIAL IM PRN (17:00)
[2021-08-25] MEDS ORDERED: Naloxone 0.4 MG/ML INJ IVP PRN (17:06)
[2021-08-25 17:27] LABS: Prothrombin Time 22.4 Seconds (9.4-12.1)
[2021-08-25 17:35] LABS: Alanine Aminotransferase 54 Units/L (7-52); Albumin 3.6 g/dL (3.5-5.7); Albumin/Globulin Ratio 1.6 (1.1-2.2); Alkaline Phosphatase 52 Units/L (34-104); Aspartate Amino Transferase 28 Units/L (13-39); BUN/Creatinine Ratio 18 (6-26); Bilirubin,Direct 0.3 mg/dL (0.0-0.2); Bilirubin,Indirect 1.1 mg/dL (0.0-1.0); Bilirubin,Total 1.4 mg/dL (0.3-1.0); Blood Urea Nitrogen 20 mg/dL (6-20); Calcium 9.1 mg/dL (8.6-10.3); Carbon Dioxide 27 mEq/L (23-29); Chloride 106 mEq/L (98-107); Globulin 2.2 g/dL (2.4-3.5); Glucose 115 mg/dL (70-105); Osmolality,Calculated 290 (280-300); Potassium 3.8 mEq/L (3.5-5.1); Sodium 138 mEq/L (136-145); Total Protein 5.8 g/dL (6.4-8.9); eGFR For African Americans > 60 (> 60); eGFR For Non-African Americans > 60 (> 60)
[2021-08-25] MEDS ORDERED: Albuterol 2.5 MG/3 ML NEBULIZER IH PRN (17:46)
[2021-08-25] MEDS: carvediloL 6.25 MG TABLET PO SCH (20:54)
[2021-08-25] MEDS: Furosemide 40 MG TABLET PO SCH (20:54)
[2021-08-26 02:01] LABS: Basophils % 0.6 %; Eosinophils # 0.2 K/mcL (0.0-0.6); Eosinophils % 2.1 %; Hematocrit 43.8 % (37.5-50.1); Hemoglobin 14.7 g/dL (12.9-16.9); Immature Granulocytes % 0.3 % (0-4); Lymphocytes # 2.7 K/mcL (0.6-4.6); Lymphocytes % 37.8 %; Mean Corpuscular HGB Conc 33.6 g/dL (31.6-35.5); Mean Corpuscular Hemoglobin 30.7 pg (28.0-33.3); Mean Corpuscular Volume 91.4 fL (83.0-100.0); Mean Platelet Volume 11.3 fL (9.4-12.4); Monocytes # 0.6 K/mcL (0.0-1.3); Monocytes % 8.9 %; Neutrophils # 3.7 K/mcL (1.6-8.9); Platelet Count 211 K/mcL (140-400); Red Blood Count 4.79 M/mcL (4.19-5.50); Red Cell Distribution Width 13.6 % (11.5-14.5); Segmented Neutrophils % 50.3 %; White Blood Count 7.2 K/mcL (4.3-11.1)
[2021-08-26 02:14] LABS: INR 1.9; Prothrombin Time 21.6 Seconds (9.4-12.1)
[2021-08-26 02:25] LABS: BUN/Creatinine Ratio 16 (6-26); Blood Urea Nitrogen 16 mg/dL (6-20); Carbon Dioxide 24 mEq/L (23-29); Chloride 105 mEq/L (98-107); Glucose 112 mg/dL (70-105); Osmolality,Calculated 284 (280-300); Potassium 3.7 mEq/L (3.5-5.1); Sodium 136 mEq/L (136-145); eGFR For African Americans > 60 (> 60); eGFR For Non-African Americans > 60 (> 60)
[2021-08-26] MEDS: carvediloL 6.25 MG TABLET PO SCH ×2 (08:15→18:39)
[2021-08-26] MEDS: Furosemide 40 MG TABLET PO SCH (08:15)
[2021-08-26] MEDS ORDERED: *HR* Heparin 5,000 UNIT/ML VIAL IVP ONE (08:39)
[2021-08-26] MEDS ORDERED: *HR* Heparin 5,000 UNIT/ML VIAL IVP PRN ×2 (08:39)
[2021-08-26] MEDS ORDERED: Perflutren Lipid Microsphere 1.3 ML in 0.9 % Sodium Chloride 8.7 ML IVP PRN (11:06)
[2021-08-26] MEDS: Piperacillin/Tazobactam 3.375 GM in 0.9 % Sodium Chloride Mini Bag 100 ML IVPB SCH ×2 (13:19→20:27)
[2021-08-26] MEDS: lisinopriL 5 MG TABLET PO SCH (13:31)
[2021-08-26] MEDS: Ondansetron ODT 4 MG TAB.RAPDIS SL PRN (15:08)
[2021-08-26] MEDS: Heparin 25,000UNIT/250ML 1/2NS 25,000 UNIT/250 ML IV.SOLN IVC SCH (19:00)
[2021-08-27] MEDS: Piperacillin/Tazobactam 3.375 GM in 0.9 % Sodium Chloride Mini Bag 100 ML IVPB SCH ×3 (03:32→20:41)
[2021-08-27 06:48] LABS: Hematocrit 40.6 % (37.5-50.1); Hemoglobin 13.6 g/dL (12.9-16.9); Mean Corpuscular HGB Conc 33.5 g/dL (31.6-35.5); Mean Corpuscular Volume 92.5 fL (83.0-100.0); Mean Platelet Volume 11.3 fL (9.4-12.4); Platelet Count 191 K/mcL (140-400); Red Blood Count 4.39 M/mcL (4.19-5.50); Red Cell Distribution Width 13.5 % (11.5-14.5)
[2021-08-27 07:09] LABS: BUN/Creatinine Ratio 15 (6-26); Blood Urea Nitrogen 19 mg/dL (6-20); Calcium 8.6 mg/dL (8.6-10.3); Carbon Dioxide 24 mEq/L (23-29); Chloride 105 mEq/L (98-107); Glucose 81 mg/dL (70-105); Osmolality,Calculated 285 (280-300); Potassium 3.5 mEq/L (3.5-5.1); Sodium 137 mEq/L (136-145); eGFR For African Americans > 60 (> 60); eGFR For Non-African Americans > 60 (> 60)
[2021-08-27] MEDS: carvediloL 6.25 MG TABLET PO SCH (09:29)
[2021-08-27] MEDS: Furosemide 40 MG TABLET PO SCH (09:29)
[2021-08-27] MEDS: lisinopriL 5 MG TABLET PO SCH (09:29)
[2021-08-27] MEDS: Heparin 25,000UNIT/250ML 1/2NS 25,000 UNIT/250 ML IV.SOLN IVC SCH (09:30)
[2021-08-27] MEDS: Metoprolol XL (24 HR) Succ 25 MG TAB.ER.24H PO SCH (20:35)
[2021-08-27] MEDS: Ondansetron ODT 4 MG TAB.RAPDIS SL PRN (20:52)
[2021-08-28 03:31] LABS: Hematocrit 41.3 % (37.5-50.1); Hemoglobin 13.9 g/dL (12.9-16.9); Mean Corpuscular HGB Conc 33.7 g/dL (31.6-35.5); Mean Corpuscular Hemoglobin 31.4 pg (28.0-33.3); Mean Corpuscular Volume 93.2 fL (83.0-100.0); Mean Platelet Volume 11.6 fL (9.4-12.4); Platelet Count 189 K/mcL (140-400); Red Blood Count 4.43 M/mcL (4.19-5.50); Red Cell Distribution Width 13.8 % (11.5-14.5); White Blood Count 8.7 K/mcL (4.3-11.1)
[2021-08-28 03:55] LABS: BUN/Creatinine Ratio 19 (6-26); Blood Urea Nitrogen 23 mg/dL (6-20); Calcium 8.6 mg/dL (8.6-10.3); Carbon Dioxide 21 mEq/L (23-29); Chloride 105 mEq/L (98-107); Glucose 89 mg/dL (70-105); Osmolality,Calculated 285 (280-300); Potassium 3.9 mEq/L (3.5-5.1); Sodium 136 mEq/L (136-145); eGFR For African Americans > 60 (> 60); eGFR For Non-African Americans > 60 (> 60)
[2021-08-28] MEDS: Piperacillin/Tazobactam 3.375 GM in 0.9 % Sodium Chloride Mini Bag 100 ML IVPB SCH ×3 (06:20→18:21)
[2021-08-28] MEDS: Heparin 25,000UNIT/250ML 1/2NS 25,000 UNIT/250 ML IV.SOLN IVC SCH (08:39)
[2021-08-28] MEDS: lisinopriL 5 MG TABLET PO SCH (08:41)
[2021-08-28] MEDS: Furosemide 40 MG TABLET PO SCH (08:42)
[2021-08-28] MEDS: Metoprolol XL (24 HR) Succ 25 MG TAB.ER.24H PO SCH (08:42)
[2021-08-28] MEDS ORDERED: Acetaminophen 325 MG TABLET PO PRN (11:20)
[2021-08-28] MEDS: Ondansetron ODT 4 MG TAB.RAPDIS SL PRN ×2 (11:41→21:49)
[2021-08-28 11:47] LABS: INR 1.8; Prothrombin Time 19.5 Seconds (9.4-12.1)
[2021-08-28 11:56] LABS: Albumin 3.8 g/dL (3.5-5.7); Albumin/Globulin Ratio 1.7 (1.1-2.2); Bilirubin,Direct 0.5 mg/dL (0.0-0.2); Bilirubin,Indirect 1.6 mg/dL (0.0-1.0); Bilirubin,Total 2.1 mg/dL (0.3-1.0); Globulin 2.3 g/dL (2.4-3.5); Total Protein 6.1 g/dL (6.4-8.9)
[2021-08-29 02:52] LABS: Hematocrit 42.3 % (37.5-50.1); Hemoglobin 14.1 g/dL (12.9-16.9); Mean Corpuscular HGB Conc 33.3 g/dL (31.6-35.5); Mean Corpuscular Hemoglobin 31.1 pg (28.0-33.3); Mean Corpuscular Volume 93.4 fL (83.0-100.0); Platelet Count 201 K/mcL (140-400); Red Blood Count 4.53 M/mcL (4.19-5.50); Red Cell Distribution Width 13.9 % (11.5-14.5); White Blood Count 9.4 K/mcL (4.3-11.1)
[2021-08-29 02:58] LABS: INR 1.7; Prothrombin Time 19.4 Seconds (9.4-12.1)
[2021-08-29 03:05] LABS: BUN/Creatinine Ratio 18 (6-26); Blood Urea Nitrogen 23 mg/dL (6-20); Calcium 8.9 mg/dL (8.6-10.3); Carbon Dioxide 21 mEq/L (23-29); Chloride 103 mEq/L (98-107); Glucose 77 mg/dL (70-105); Osmolality,Calculated 280 (280-300); Potassium 4.3 mEq/L (3.5-5.1); Sodium 134 mEq/L (136-145); eGFR For African Americans > 60 (> 60); eGFR For Non-African Americans > 60 (> 60)
[2021-08-29] MEDS: Piperacillin/Tazobactam 3.375 GM in 0.9 % Sodium Chloride Mini Bag 100 ML IVPB SCH ×3 (03:59→17:38)
[2021-08-29] MEDS ORDERED: Lidocaine -MPF 2% 2 ML VIAL ONE ×2 (07:12→09:55)
[2021-08-29] MEDS ORDERED: Ondansetron 4 MG/2 ML VIAL ONE (07:12)
[2021-08-29] MEDS ORDERED: *HR* FentaNYL (PF) 100 MCG/2 ML VIAL ONE (07:12)
[2021-08-29] MEDS ORDERED: *HR* Midazolam HCl 2 MG/2 ML VIAL ONE ×2 (07:12→10:39)
[2021-08-29] MEDS ORDERED: Lidocaine HCL 4 ML Topical Solution (Laryng-O-Jet Kit Sterile Pak) TP ONE (07:12)
[2021-08-29] MEDS ORDERED: *HR* Propofol 200 MG/20 ML VIAL IVP ONE (07:12)
[2021-08-29] MEDS ORDERED: *HR* Rocuronium Bromide 50 MG/5 ML VIAL ONE (07:12)
[2021-08-29] MEDS ORDERED: *HR* Succinylcholine 200 MG/10 ML VIAL IVP ONE (07:12)
[2021-08-29] MEDS ORDERED: Isovue-300 50ML VIAL ONE (07:29)
[2021-08-29] MEDS ORDERED: EPHEDrine 50 MG/ML VIAL ONE (08:38)
[2021-08-29] MEDS: Furosemide 40 MG TABLET PO SCH (08:43)
[2021-08-29] MEDS: lisinopriL 5 MG TABLET PO SCH (08:43)
[2021-08-29] MEDS: Metoprolol XL (24 HR) Succ 25 MG TAB.ER.24H PO SCH (08:43)
[2021-08-29] MEDS ORDERED: *HR* OxyCODONE Immed Rel 5 MG TABLET PO PRN (09:08)
[2021-08-29] MEDS ORDERED: *HR* HYDROmorphone PF 0.5 MG/0.5 ML SYRINGE IVP PRN (09:08)
[2021-08-29] MEDS ORDERED: Sugammadex Sodium 200 MG/2 ML VIAL IV ONE (10:45)
[2021-08-29] MEDS ORDERED: *HR* Phenylephrine 10 MG/ML VIAL ONE (10:46)
[2021-08-29] MEDS ORDERED: flumazeniL 0.5 MG/5 ML VIAL IVP ONE (11:29)
[2021-08-29] MEDS ORDERED: Albuterol 2.5 MG/3 ML NEBULIZER IH PRN (13:17)
[2021-08-29] MEDS ORDERED: Naloxone 0.4 MG/ML INJ IVP PRN (13:17)
[2021-08-29] MEDS ORDERED: Ondansetron ODT 4 MG TAB.RAPDIS SL PRN (13:17)
[2021-08-29] MEDS ORDERED: *HR* Promethazine 25 MG/ML VIAL IM PRN (13:17)
[2021-08-29] MEDS ORDERED: Warfarin perPT PO PRN (18:00)
[2021-08-29] MEDS ORDERED: *HR* Warfarin 2.5 MG TABLET PO ONE (18:00)
[2021-08-30] MEDS: Piperacillin/Tazobactam 3.375 GM in 0.9 % Sodium Chloride Mini Bag 100 ML IVPB SCH ×4 (02:11→18:18)
[2021-08-30 05:51] LABS: Hematocrit 45.1 % (37.5-50.1); Hemoglobin 15.4 g/dL (12.9-16.9); Mean Corpuscular HGB Conc 34.1 g/dL (31.6-35.5); Mean Corpuscular Hemoglobin 31.4 pg (28.0-33.3); Mean Platelet Volume 12.3 fL (9.4-12.4); Platelet Count 241 K/mcL (140-400); Red Cell Distribution Width 13.9 % (11.5-14.5)
[2021-08-30 05:56] LABS: INR 1.8; Prothrombin Time 19.5 Seconds (9.4-12.1)
[2021-08-30 06:15] LABS: BUN/Creatinine Ratio 19 (6-26); Blood Urea Nitrogen 26 mg/dL (6-20); Carbon Dioxide 16 mEq/L (23-29); Chloride 102 mEq/L (98-107); Glucose 170 mg/dL (70-105); Osmolality,Calculated 277 (280-300); Potassium 5.3 mEq/L (3.5-5.1); Sodium 129 mEq/L (136-145); eGFR For African Americans > 60 (> 60); eGFR For Non-African Americans 59 (> 60)
[2021-08-30] MEDS ORDERED: Furosemide 40 MG TABLET PO SCH (09:00)
[2021-08-30] MEDS ORDERED: lisinopriL 5 MG TABLET PO SCH (09:00)
[2021-08-30 09:15] LABS: Albumin 4.1 g/dL (3.5-5.7); Albumin/Globulin Ratio 1.9 (1.1-2.2); Bilirubin,Direct 0.6 mg/dL (0.0-0.2); Bilirubin,Indirect 1.6 mg/dL (0.0-1.0); Bilirubin,Total 2.2 mg/dL (0.3-1.0); Calcium 9.2 mg/dL (8.6-10.3); Globulin 2.2 g/dL (2.4-3.5); Potassium 5.2 mEq/L (3.5-5.1); Total Protein 6.3 g/dL (6.4-8.9)
[2021-08-30] MEDS: Metoprolol XL (24 HR) Succ 25 MG TAB.ER.24H PO SCH (09:15)
[2021-08-30] MEDS ORDERED: 0.9 % Sodium Chloride 1,000 ML IVC SCH (09:30)
[2021-08-30] MEDS: 0.9 % Sodium Chloride 1,000 ML IVC SCH ×2 (11:16→22:38)
[2021-08-30] MEDS ORDERED: Ondansetron 4 MG/2 ML VIAL IVP PRN (11:53)
[2021-08-30] MEDS ORDERED: Prochlorperazine 10 MG/2 ML VIAL IVP PRN (11:54)
[2021-08-30] MEDS: Ondansetron 4 MG/2 ML VIAL IVP SCH ×2 (16:22→20:40)
[2021-08-30] MEDS ORDERED: *HR* Warfarin 2.5 MG TABLET PO ONE (18:00)
[2021-08-31] MEDS: Ondansetron 4 MG/2 ML VIAL IVP SCH ×4 (00:33→12:17)
[2021-08-31] MEDS: Piperacillin/Tazobactam 3.375 GM in 0.9 % Sodium Chloride Mini Bag 100 ML IVPB SCH ×2 (02:18→12:16)
[2021-08-31] MEDS ORDERED: Acetaminophen IV 1,000 MG/100 ML BAG IVPB ONE (07:07)
[2021-08-31] MEDS ORDERED: *HR* HYDROmorphone (PF) 1 MG/ML SYRINGE IVP PRN (07:10)
[2021-08-31] MEDS: Metoprolol XL (24 HR) Succ 25 MG TAB.ER.24H PO SCH (08:01)
[2021-08-31 08:03] LABS: Basophils % 0.1 %; Eosinophils % 0.1 %; Hematocrit 43.8 % (37.5-50.1); Hemoglobin 14.7 g/dL (12.9-16.9); Immature Granulocytes % 0.4 % (0-4); Lymphocytes # 1.7 K/mcL (0.6-4.6); Lymphocytes % 12.7 %; Mean Corpuscular HGB Conc 33.6 g/dL (31.6-35.5); Mean Corpuscular Hemoglobin 31.5 pg (28.0-33.3); Mean Corpuscular Volume 93.8 fL (83.0-100.0); Mean Platelet Volume 11.7 fL (9.4-12.4); Monocytes # 1.3 K/mcL (0.0-1.3); Monocytes % 9.4 %; Neutrophils # 10.6 K/mcL (1.6-8.9); Platelet Count 198 K/mcL (140-400); Red Blood Count 4.67 M/mcL (4.19-5.50); Red Cell Distribution Width 14.6 % (11.5-14.5); Segmented Neutrophils % 77.3 %; White Blood Count 13.7 K/mcL (4.3-11.1)
[2021-08-31 08:16] LABS: INR 2.4; Prothrombin Time 26.7 Seconds (9.4-12.1)
[2021-08-31 08:20] LABS: Alanine Aminotransferase 311 Units/L (7-52); Albumin 3.6 g/dL (3.5-5.7); Albumin/Globulin Ratio 1.8 (1.1-2.2); Alkaline Phosphatase 48 Units/L (34-104); Aspartate Amino Transferase 145 Units/L (13-39); BUN/Creatinine Ratio 19 (6-26); Bilirubin,Direct 0.6 mg/dL (0.0-0.2); Bilirubin,Total 1.6 mg/dL (0.3-1.0); Blood Urea Nitrogen 25 mg/dL (6-20); Calcium 8.7 mg/dL (8.6-10.3); Carbon Dioxide 22 mEq/L (23-29); Chloride 105 mEq/L (98-107); Glucose 103 mg/dL (70-105); Lipase 17 Units/L (11-82); Magnesium 1.9 mg/dL (1.6-2.6); Osmolality,Calculated 283 (280-300); Potassium 4.6 mEq/L (3.5-5.1); Sodium 134 mEq/L (136-145); Total Protein 5.6 g/dL (6.4-8.9); eGFR For African Americans > 60 (> 60); eGFR For Non-African Americans 59 (> 60)
[2021-08-31] MEDS ORDERED: *HR* Warfarin 5 MG TABLET PO SCH (11:23)
[2021-08-31 12:43] VITALS: BP 116/78; PULSE 92; TEMP 97.4; O2SAT 94
[2021-09-01] MEDS ORDERED: *HR* Warfarin 5 MG TABLET PO SCH (11:23)
[2021-09-03] MEDS ORDERED: *HR* Warfarin 5 MG TABLET PO SCH (11:23)
== END 2021-08-31 14:27 | disposition home or self-care (01) | DRG 418 ==
LOC: 3ANU → SUATTDRO 15:54
PROVIDERS: ADMIT Pharmacist; ATTEND Internal Medicine

== ENCOUNTER 2021-09-22 22:27 | Inpatient (IN) ==
[2021-09-22 23:22] LABS: White Blood Count 8.5 K/mcL (4.3-11.1)
[2021-09-22 23:23] LABS: Basophils # 0.1 K/mcL (0.0-0.2); Basophils % 0.7 %; Eosinophils # 0.1 K/mcL (0.0-0.6); Eosinophils % 1.2 %; Hematocrit 44.2 % (37.5-50.1); Hemoglobin 14.5 g/dL (12.9-16.9); Immature Granulocytes % 0.2 % (0-4); Lymphocytes # 2.2 K/mcL (0.6-4.6); Lymphocytes % 26.1 %; Mean Corpuscular HGB Conc 32.8 g/dL (31.6-35.5); Mean Corpuscular Hemoglobin 29.5 pg (28.0-33.3); Mean Platelet Volume 11.6 fL (9.4-12.4); Monocytes # 0.8 K/mcL (0.0-1.3); Monocytes % 9.5 %; Neutrophils # 5.3 K/mcL (1.6-8.9); Platelet Count 266 K/mcL (140-400); Red Blood Count 4.91 M/mcL (4.19-5.50); Red Cell Distribution Width 14.7 % (11.5-14.5); Segmented Neutrophils % 62.3 %
[2021-09-22 23:47] LABS: BUN/Creatinine Ratio 16 (6-26); Blood Urea Nitrogen 22 mg/dL (6-20); Calcium 9.1 mg/dL (8.6-10.3); Carbon Dioxide 25 mEq/L (23-29); Chloride 97 mEq/L (98-107); Glucose 112 mg/dL (70-105); Osmolality,Calculated 282 (280-300); Potassium 3.9 mEq/L (3.5-5.1); Sodium 134 mEq/L (136-145); eGFR For African Americans > 60 (> 60); eGFR For Non-African Americans 59 (> 60)
[2021-09-22 23:52] LABS: Troponin I 0.05 ng/mL (< 0.04)
[2021-09-23] MEDS ORDERED: Furosemide 40 MG/4 ML VIAL IVP ONE (00:29)
[2021-09-23 00:50] LABS: Activated Partial Thrombo Time 40.4 Seconds (26.0-36.0)
[2021-09-23 00:58] LABS: Prothrombin Time 66.4 Seconds (9.4-12.1)
[2021-09-23 01:09] LABS: Alanine Aminotransferase 34 Units/L (7-52); Albumin 3.8 g/dL (3.5-5.7); Albumin/Globulin Ratio 1.4 (1.1-2.2); Alkaline Phosphatase 44 Units/L (34-104); Aspartate Amino Transferase 38 Units/L (13-39); Bilirubin,Direct 0.5 mg/dL (0.0-0.2); Bilirubin,Total 2.5 mg/dL (0.3-1.0); Globulin 2.7 g/dL (2.4-3.5); Total Protein 6.5 g/dL (6.4-8.9)
[2021-09-23 01:42] LABS: Bilirubin,Urine Negative (Negative); Blood,Urine Negative (Negative); Clarity,Urine Clear (Clear); Color,Urine Yellow (Yellow); Glucose,Urine (UA) Normal (Normal); Ketones,Urine Negative (Negative); Leukocyte Esterase,Urine Negative (Negative); Nitrite,Urine Negative (Negative); Protein,Urine Negative (Neg-Trace); Specific Gravity,Urine 1.014 (1.010-1.025); Urobilinogen,Urine Normal (Normal)
[2021-09-23] MEDS ORDERED: Perflutren Lipid Microsphere 1.3 ML in 0.9 % Sodium Chloride 8.7 ML IVP PRN (04:35)
[2021-09-23] MEDS ORDERED: Naloxone 0.4 MG/ML INJ IVP PRN (04:36)
[2021-09-23] MEDS ORDERED: Melatonin 3 MG TABLET PO PRN (04:47)
[2021-09-23 07:22] LABS: Basophils # 0.1 K/mcL (0.0-0.2); Basophils % 0.9 %; Eosinophils # 0.1 K/mcL (0.0-0.6); Eosinophils % 1.7 %; Hematocrit 43.3 % (37.5-50.1); Hemoglobin 14.3 g/dL (12.9-16.9); Immature Granulocytes % 0.3 % (0-4); Lymphocytes # 2.3 K/mcL (0.6-4.6); Mean Corpuscular Hemoglobin 29.8 pg (28.0-33.3); Mean Corpuscular Volume 90.2 fL (83.0-100.0); Mean Platelet Volume 11.6 fL (9.4-12.4); Monocytes # 0.7 K/mcL (0.0-1.3); Monocytes % 10.1 %; Neutrophils # 3.8 K/mcL (1.6-8.9); Platelet Count 251 K/mcL (140-400); Red Cell Distribution Width 14.8 % (11.5-14.5)
[2021-09-23 08:01] LABS: Alanine Aminotransferase 32 Units/L (7-52); Albumin 3.7 g/dL (3.5-5.7); Albumin/Globulin Ratio 1.7 (1.1-2.2); Alkaline Phosphatase 42 Units/L (34-104); Aspartate Amino Transferase 27 Units/L (13-39); BUN/Creatinine Ratio 18 (6-26); Bilirubin,Total 2.7 mg/dL (0.3-1.0); Blood Urea Nitrogen 21 mg/dL (6-20); Carbon Dioxide 26 mEq/L (23-29); Chloride 96 mEq/L (98-107); Globulin 2.2 g/dL (2.4-3.5); Glucose 137 mg/dL (70-105); Magnesium 1.7 mg/dL (1.6-2.6); Osmolality,Calculated 281 (280-300); Sodium 133 mEq/L (136-145); Total Protein 5.9 g/dL (6.4-8.9); Troponin I 0.05 ng/mL (< 0.04); eGFR For African Americans > 60 (> 60); eGFR For Non-African Americans > 60 (> 60)
[2021-09-23] MEDS ORDERED: Metoprolol XL (24 HR) Succ 25 MG TAB.ER.24H PO SCH (09:00)
[2021-09-23] MEDS: Furosemide 40 MG/4 ML VIAL IVP SCH ×2 (09:40→20:02)
[2021-09-23] MEDS: Ondansetron ODT 4 MG TAB.RAPDIS SL PRN (13:57)
[2021-09-23] MEDS: Sennosides/Docusate Sodium TABLET PO PRN (20:02)
[2021-09-23] MEDS: carvediloL 6.25 MG TABLET PO SCH (20:03)
[2021-09-24 01:35] LABS: Basophils % 0.4 %; Eosinophils % 0.5 %; Hematocrit 41.1 % (37.5-50.1); Hemoglobin 13.9 g/dL (12.9-16.9); Immature Granulocytes % 0.3 % (0-4); Lymphocytes # 2.1 K/mcL (0.6-4.6); Lymphocytes % 26.5 %; Mean Corpuscular HGB Conc 33.8 g/dL (31.6-35.5); Mean Corpuscular Hemoglobin 29.5 pg (28.0-33.3); Mean Corpuscular Volume 87.3 fL (83.0-100.0); Mean Platelet Volume 11.7 fL (9.4-12.4); Monocytes # 0.7 K/mcL (0.0-1.3); Monocytes % 9.4 %; Neutrophils # 4.9 K/mcL (1.6-8.9); Platelet Count 244 K/mcL (140-400); Red Blood Count 4.71 M/mcL (4.19-5.50); Red Cell Distribution Width 14.8 % (11.5-14.5); Segmented Neutrophils % 62.9 %; White Blood Count 7.8 K/mcL (4.3-11.1)
[2021-09-24 01:44] LABS: INR 2.3; Prothrombin Time 25.1 Seconds (9.4-12.1)
[2021-09-24 02:00] LABS: Alanine Aminotransferase 58 Units/L (7-52); Albumin 3.4 g/dL (3.5-5.7); Albumin/Globulin Ratio 1.5 (1.1-2.2); Alkaline Phosphatase 42 Units/L (34-104); Aspartate Amino Transferase 51 Units/L (13-39); BUN/Creatinine Ratio 20 (6-26); Bilirubin,Total 3.3 mg/dL (0.3-1.0); Blood Urea Nitrogen 25 mg/dL (6-20); Calcium 8.6 mg/dL (8.6-10.3); Carbon Dioxide 22 mEq/L (23-29); Chloride 98 mEq/L (98-107); Globulin 2.3 g/dL (2.4-3.5); Glucose 126 mg/dL (70-105); Osmolality,Calculated 280 (280-300); Potassium 3.5 mEq/L (3.5-5.1); Sodium 132 mEq/L (136-145); Total Protein 5.7 g/dL (6.4-8.9); eGFR For African Americans > 60 (> 60); eGFR For Non-African Americans > 60 (> 60)
[2021-09-24 06:00] VITALS: O2SAT 97
[2021-09-24] MEDS: Ondansetron ODT 4 MG TAB.RAPDIS SL PRN (06:43)
[2021-09-24 07:17] VITALS: BP 112/82; PULSE 100; TEMP 98.3
[2021-09-24] MEDS: carvediloL 6.25 MG TABLET PO SCH (08:42)
[2021-09-24] MEDS: Sennosides/Docusate Sodium TABLET PO PRN (08:42)
[2021-09-24] MEDS ORDERED: lisinopriL 5 MG TABLET PO SCH (09:00)
[2021-09-24] MEDS ORDERED: Furosemide 40 MG TABLET PO SCH (09:00)
[2021-09-24] MEDS ORDERED: Warfarin perPT PO PRN (18:00)
[2021-09-24] MEDS ORDERED: *HR* Warfarin 5 MG TABLET PO ONE (18:00)
== END 2021-09-24 12:08 | disposition home or self-care (01) | DRG 280 ==
LOC: EMEROOARM 22:27 → 2ANU 22:27
PROVIDERS: ADMIT Student in an Organized Health Care Education/Training Program; ATTEND Student in an Organized Health Care Education/Training Program